=== PATIENT | male | born 1965 | race Caucasian/White ===

== ENCOUNTER → 2022-06-10 | Outpatient (CLI) | payer MEDICARE, SELFPAY ==
[2022-06-10 15:43] LABS: Vitamin B12 463 pg/mL (211-911)
[2022-06-10 16:02] LABS: Thyroid Stim Hormone (TSH) 1.15 uIU/mL (0.358-3.74)
[2022-06-15 12:08] LABS: Vitamin B1, Thiamine 140.1 nmol/L (66.5-200.0)
[2022-06-15 16:23] LABS: Topiramate 20.1 ug/mL (2.0-25.0)
== END | disposition home or self-care (01) ==
PROVIDERS: Referring Provider Psychiatry & Neurology Neurology; Visit Provider Psychiatry & Neurology Neurology
DX: G40.909 Epilepsy, unspecified, not intractable, without status epilepticus (principal)
CPT/HCPCS: 36415; 80201; 82140; 82607; 82746; 84425; 84443

== ENCOUNTER → 2022-07-01 | Outpatient (CLI) | payer MEDICARE, SELFPAY ==
--- NOTE | 2022-07-01 12:30 | MRI_ITS ---
STUDY: MRI BRAIN WITH AND WITHOUT CONTRAST REASON FOR EXAM: Male, 56 years old. epilepsy eval -- Pt has VNS unit implanted; SEIZURE ACTIVITY EVEN WITH IMPALNT TECHNIQUE: Standardized multiplanar fat and water weighted pulse sequences were obtained. IV 17cc clariscan was administered for the contrast portion of the examination. COMPARISON: None. FINDINGS: Normal size of the ventricles and extra-axial spaces for the patient''s age. Mild periventricular white matter ischemic changes without mass effect or restricted diffusion. There is a nonspecific nonenhancing lesion in the left frontal parietal region measuring approximately 2.18 x 1.14 cm which appears to be involving the body of the corpus callosum of uncertain etiology. Clinical correlation is recommended Normal bilateral basal ganglia. Normal thalami. There is no extra-axial fluid accumulation. Normal flow voids within the major intracranial circulation suggesting patency by spin echo criteria. Normal venous enhancement. There is no enhancing intra-axial or extra-axial abnormality. Normal sella turcica, pituitary gland, infundibular stalk, optic chiasm and hypothalamus. Normal tectal plate and pineal gland. Normal midbrain, jacob and medulla. Moderate to severe diffuse cerebellar atrophy.. Normal basal cisterns. Normal bilateral temporal bones. Normal bilateral internal auditory canals. No demonstrated orbital abnormality, within the constraints of a routine brain study. Diffuse mucosal thickening in the ethmoid air cells bilaterally.. Normal calvarium and skull base. Normal visualized soft tissue structures. Normal visualized upper cervical spine. MRI/Brain W/WO Contrast IMPRESSION: Mild periventricular white matter ischemic changes without evidence for acute infarct. Nonspecific left frontal parietal lesion appears to be loculated corpus callosum of uncertain etiology. Moderate to severe cerebellar atrophy of uncertain etiology although could be due to utilization of anticonvulsant medication. Electronically Signed: Brodie Parsons MD at 18:47 EST ,
--- NOTE | 2022-07-01 12:45 | RAD_ITS ---
STUDY: X-RAY CHEST REASON FOR EXAM: Male, 56 years old. PLACEMENT OF VNS, PRE MRI TECHNIQUE: PA and lateral views of the chest. COMPARISON: None. FINDINGS: The battery pack is seen overlying the left sixth and seventh ribs. Hyperinflation. The lungs are clear. There is no demonstrated pleural abnormality. Normal size heart. Normal mediastinum and naomie. Normal visualized pulmonary arteries. Normal visualized aortic arch and descending thoracic aorta. There are diffuse degenerative changes of the visualized thoracic spine. Normal visualized ribs, clavicles, and shoulders. There is no demonstrated abnormality of the visualized soft tissue structures of the upper abdomen. RAD/Chest PA and Lateral IMPRESSION: Hyperinflation. The lungs are clear. Electronically Signed: Devante Pena MD at 13:20 EST ,
== END | disposition home or self-care (01) ==
PROVIDERS: Referring Provider Psychiatry & Neurology Neurology; Visit Provider Psychiatry & Neurology Neurology
DX: G40.812 Lennox-Gastaut syndrome, not intractable, without status epilepticus (principal)
CPT/HCPCS: 70553; 71046; A9575

== ENCOUNTER → 2023-08-18 | Outpatient (CLI) | payer MEDICARE, SELFPAY ==
--- OUTSIDE RECORDS SUMMARY | 2023-08-18 13:35 | XMS RPT_ITS | CCD ---
Author Name Unknown Address [address] [place] [address] Organization [facility] Care Team Providers Care Founder And Chief Executive Officer Name Role Phone Brittney Bandail E Unavailable Inder Banda Primary Care Provider SUZI JOHNSONWOOD MANSI Admitting Unavailable ALEX, DAMIR RAY Referring Unavailable SOLO INDER EDSUSAN Primary Care Unavailable Solo LONG Inder E Primary Care Provider Inder Banda MD E Primary Care Provider PAULA OMER Attending Unavailable SOLO, INDER E Primary Care Unavailable CARLO ALONSO Attending Unavailable SOLO, INDER E Primary Care Unavailable Solo LONG Inder E Primary Care Provider Inder Banad MD E Primary Care Provider Inder Banda MD E Primary Care Provider Inder Banda MD Primary Care Provider [phone] INDER BANDA Primary Care Unavailable ALEX, DAMIR RAY Attending Unavailable ALEX, DAMIR RAY Admitting Unavailable ALEX, DAMIR RAY Attending Unavailable SOLO, INDER EDWARD Primary Care Unavailable SOLO, INDER E Primary Care Unavailable RILEY DIETZ Referring Unavailable RILEY DIETZ Attending Unavailable SOLO, INDER E Primary Care Unavailable RILEY DIETZ Attending Unavailable RILEY DIETZ Referring Unavailable SOLO, INDER E Primary Care Unavailable RILEY DIETZ Referring Unavailable RILEY DIETZ Attending Unavailable SOLO, INDER E Primary Care Unavailable RILEY DIETZ Referring Unavailable RILEY DIETZ Attending Unavailable SOLO, INDER E Primary Care Unavailable RILEY DIETZ Referring Unavailable DIETZ, RILEY L Attending Unavailable SOLO, INDER E Primary Care Unavailable DIETZ, RILEY L Referring Unavailable DIETZ, RILEY L Attending Unavailable SOLO, INDER E Primary Care Unavailable DIETZ, RILEY L Attending Unavailable DIETZ, RILEY L Referring Unavailable DIETZ, RILEY L Referring Unavailable SOLO, INDER E Primary Care Unavailable DIETZ, RILEY L Attending Unavailable DIETZ, RILEY L Referring Unavailable SOLO, INDER E Primary Care Unavailable DIETZ, RILEY L Attending Unavailable DIETZ, RILEY L Referring Unavailable SOLO, INDER E Primary Care Unavailable DIETZ, RILEY L Attending Unavailable DIETZ, RILEY L Referring Unavailable SOLO, INDER E Primary Care Unavailable DIETZ, RILEY L Attending Unavailable DIETZ, RILEY L Referring Unavailable SOLO, INDER E Primary Care Unavailable DIETZ, RILEY L Attending Unavailable DIETZ, RILEY L Referring Unavailable SOLO, INDER E Primary Care Unavailable DIETZ, RILEY L Attending Unavailable SOLO, INDER E Primary Care Unavailable DIETZ, RILEY L Attending Unavailable DIETZ, RILEY L Referring Unavailable SOLO, INDER E Primary Care Unavailable SOLO, INDER E Referring Unavailable SOLO, INDER E Attending Unavailable SOLO, INDER E Primary Care Unavailable DIETZ, RILEY L Referring Unavailable DIETZ, RILEY L Attending Unavailable SOLO, INDER E Primary Care Unavailable SOLO, INDER E Referring Unavailable SOLO, INDER E Attending Unavailable SOLO, INDER E Primary Care Unavailable SJ, RADHA Referring Unavailable SJ, RADHA Attending Unavailable SELF, SELF Referring Unavailable SOLO, INDER E Primary Care Unavailable SJ, RADHA Attending Unavailable SOLO, INDER E Primary Care Unavailable DIETZ, RILEY L Referring Unavailable DIETZ, RILEY L Attending Unavailable SOLO, INDER E Primary Care Unavailable DIETZ, RILEY L Referring Unavailable DIETZ, RILEY L Attending Unavailable NARESH HYLTON Attending Unavailable SOLO, INDER E Primary Care Unavailable SELF, SELF Referring Unavailable SJ, RADHA Attending Unavailable SOLO, INDER E Primary Care Unavailable SOLO, INDER E Primary Care Unavailable SELF, SELF Referring Unavailable SOLO, INDER E Attending Unavailable DOWNING, MARQUITA L Referring Unavailable DOWNING MARQUITA L Attending Unavailable SOLO, INDER E Primary Care Unavailable DOWNING, MARQUITA L Referring Unavailable DOWNING MARQUITA L Attending Unavailable SOLO, INDER E Primary Care Unavailable SOLO, INDER E Primary Care Unavailable SOLO, INDER E Primary Care Unavailable DIETZ, RILEY L Referring Unavailable DIETZ, RILEY L Attending Unavailable SOLO, INDER E Primary Care Unavailable DIETZ, RILEY L Referring Unavailable DIETZ, RILEY L Attending Unavailable SOLO, INDER E Primary Care Unavailable SOLO, INDER E Primary Care Unavailable RILEY DIETZ Referring Unavailable RILEY DIETZ Attending Unavailable SOLO, INDER E Referring Unavailable SOLO, INDER E Primary Care Unavailable SOLO, INDER E Attending Unavailable SOLO, INDER E Primary Care Unavailable SJ, RADHA Attending Unavailable SJ, RADHA Referring Unavailable SOLO, INDER E Referring Unavailable SOLO, INDER E Primary Care Unavailable SOLO, INDER E Attending Unavailable SOLO, INDER E Primary Care Unavailable SOLO, INDER E Primary Care Unavailable CATARINO CHRISTIANSON Attending Unavailable SOLO, INDER E Referring Unavailable SOLO, INDER E Primary Care Unavailable DIETZRILEY MALDONADO Attending Unavailable SOLO, INDER E Referring Unavailable SOLO, INDER E Primary Care Unavailable SOLO, INDER E Attending Unavailable SELF, SELF Referring Unavailable SOLO, INDER E Primary Care Unavailable SOLO, INDER E Attending Unavailable RILEY DIETZ Referring Unavailable SOLO, INDER E Primary Care Unavailable RILEY DIETZ Attending Unavailable RILEY DIETZ Referring Unavailable SOLO, INDER E Primary Care Unavailable RILEY DIETZ Attending Unavailable Medications Current Medications Medication Drug Class(es) Dates Sig (Normalized) Sig (Original) acetaminophen 325 mg oral tablet (8 sources) acetaminophen (T YLENOL) 325 MG tablet Take 1 (one) tablet (325 mg total) by mouth as needed for pain . 0 Active Completed/Discontinued Medications Medication Drug Class(es) Dates Sig (Normalized) Sig (Original) acetaminophen 325 mg / HYDROcodone bitartrate 5 mg oral tablet (5 sources) Opioid Agonist Start: 04-23-2021 End: 12-04-2021 take 1 tablet by mouth every four hours as needed hydroCODone-acetami nophen 5-325 MG tablet Indications: Kidney stone Take 1 tablet by mouth every 4 hours as needed for up to 2 days. 12 tablet 0 04/23/2021 12/04/2021 Discontinued (Therapy completed) Problems Active Problems Problem Classification Problem Date Documented Da te Episodic/Chronic Acute cerebrovascular disease (3 sources) Hemorrhage into subdural space of neuraxis; Translations: [Nontraumatic subdural hemorrhage, unspecified] Onset: 06-02-2022 Chronic Chronic kidney disease (2 sources) Chronic kidney disease stage 2; Translations: [Chronic kidney disease, stage 2 (mild)] Chronic Chronic kidney disease (2 sources) Chronic kidney disease; Translations: [Chronic kidney disease, stage 3a] Onset: 11-17-2022 Deficiency and other anemia (1 source) Iron deficiency anemia; Translations: [Other iron deficiency anemias] 08-12-2023 Episodic Developmental disorders (20 sources) 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] Onset: 10-09-2015 10-09-2015 Chronic Essential hypertension (3 sources) Benign hypertension; Translations: [Essential (primary) hypertension] Chronic Nutritional deficiencies (20 sources) Vitamin D deficiency; Translations: [Vitamin D deficiency, unspecified] Onset: 09-11-2018 09-11-2018 Chronic Nutritional deficiencies (1 source) Cobalamin deficiency; Translations: [Deficiency of other specified B group vitamins] 05-10-2023 Episodic Other and unspecified benign neoplasm (9 sources) History of polyp of colon; Translations: [Personal history of colonic polyps] Onset: 05-08-2020 05-08-2020 Episodic Other and unspecified benign neoplasm (1 source) Adenomatous polyp of colon ; Translations: [Adenomatous polyp of sigmoid colon] Episodic Other and unspecified benign neoplasm (2 sources) Personal history of colonic polyps; Translations: [Personal history of colonic polyps] Onset: 05-08-2020 Episodic Other connective tissue disease (2 sources) Pain in right hand; Translations: [Pain in right hand] Episodic Other connective tissue disease (1 source) Disorder of rotator cuff; Translations: [Unspecified disorder of synovium and tendon, right shoulder] 02-16-2023 Episodic Other connective tissue disease (4 sources) Adhesive capsulitis of right shoulder; Translations: [Adhesive capsulitis of right shoulder] Onset: 08-10-2023 06-02-2023 Episodic Other connective tissue disease (1 source) Adhesive capsulitis of right shoulder; Translations: [Adhesive capsulitis of right shoulder] Onset: 08-10-2023 Episodic Other hematologic conditions (3 sources) ESR raised; Translations: [Elevated erythrocyte sedimentation rate] Episodic Other non-traumatic joint disorders (2 sources) Shoulder pain; Translations: [Pain in right shoulder] 02-16-2023 Episodic Other non-traumatic joint disorders (3 sources) Disorder of shoulder; Translations: [Other specified joint disorders, right shoulder] 05-06-2023 Episodic Other non-traumatic joint disorders (3 sources) Pain in right shoulder; Translations: [Pain in joint, shoulder region] Onset: 06-02-2023 06-02-2023 Episodic Other non-traumatic joint disorders (1 source) Stiffness of right shoulder; Translations: [Stiffness of right shoulder, not elsewhere classified] 06-08-2023 Episodic Other non-traumatic joint disorders (4 sources) Other specified joint disorders, right shoulder; Translations: [Other specified joint disorders, right shoulder] Onset: 06-08-2023 Episodic Other non-traumatic joint disorders (2 sources) Stiffness of right shoulder, not elsewhere classified; Translations: [Stiffness of right shoulder, not elsewhere classified] Onset: 06-15-2023 Episodic Other nutritional; endocrine; and metabolic disorders (20 sources) Obese class I; Translations: [Obesity, unspecified] Onset: 06-09-2020 06-09-2020 Chronic Other nutritional; endocrine; and metabolic disorders (3 sources) Hypocalcemia; Translations: [Hypocalcemia] Onset: 05-18-2023 05-18-2023 Chronic Other nutritional; endocrine; and metabolic disorders (1 source) Hypocalcemia; Translations: [Hypocalcemia] Onset: 05-18-2023 Chronic Other upper respiratory disease (2 sources) Vasomotor rhinitis; Translations: [Vasomotor rhinitis] Onset: 06-15-2023 Chronic Unclassified (1 source) Patient encounter status; Translations: [Elective surgery] Past or Other Problems Problem Classification Problem Date Documented Da te Episodic/Chronic Calculus of urinary tract (20 sources) Kidney stone; Translations: [Calculus of kidney] Onset: 03-18-2021 Episodic E Codes: Fall (1 source) Fall; Translations: [Unspecified fall, initial encounter] Onset: 06-02-2022 06-02-2022 Episodic Epilepsy; convulsions (20 sources) Seizure; Translations: [Unspecified convulsions] Onset: 07-30-2014 07-30-2014 Episodic Open wounds of head; neck; and trunk (4 sources) Scalp laceration; Translations: [Laceration without foreign body of scalp, initial encounter] Onset: 10-16-2022 Episodic Other aftercare (20 sources) Surgical follow-up; Translations: [Encounter for removal of sutures] Onset: 03-14-2018 03-14-2018 Episodic Other aftercare (2 sources) Encounter for removal of sutures; Translations: [Encounter for removal of sutures] Onset: 10-23-2022 Episodic Other connective tissue disease (2 sources) Unspecified disorder of synovium and tendon, right shoulder; Translations: [Unspecified disorder of synovium and tendon, right shoulder] Onset: 03-17-2023 Episodic Other connective tissue disease (2 sources) Pain in right hand; Translations: [Pain in right hand] Onset: 02-16-2023 Episodic Other screening for suspected conditions (not mental disorders or infectious disease) (20 sources) Patient encounter status; Translations: [Encounter for screening for malignant neoplasm of colon] Onset: 04-16-2020 04-16-2020 Episodic Other skin disorders (20 sources) Skin lesion; Translations: [Disorder of the skin and subcutaneous tissue, unspecified] Onset: 03-14-2018 03-14-2018 Episodic Poisoning by other medications and drugs (20 sources) Adverse reaction to drug; Translations: [Adverse effect of unspecified drugs, medicaments and biological substances, initial encounter] Onset: 09-23-2011 09-23-2011 Episodic Sprains and strains (3 sources) Sprain of right thumb; Translations: [Unspecified sprain of right thumb, initial encounter] Onset: 11-15-2022 Episodic Unclassified (1 source) Laceration of left eyebrow, initial encounter Unclassified (20 sources) Onset: 06-09-2021 Resolved: 11-15-2022 06-09-2021 Results Test Name Value Interpretation Reference Range Facil ity Vital Signs Date Time Vital Sign Value Performing Clinician Facility 08-12-2023 13:36-0500 Body mass index (BMI) [Ratio] 26.05 kg/m2 Inder Banda MD Work Phone: [facility] 08-12-2023 13:36-0500 Body temperature 97.81 [degF] Inder Banda MD Work Phone: [employer] [facility] 08-12-2023 13:36-0500 Body weight 80.02 kg Inder Banda MD Work Phone: [employer] [facility] 08-12-2023 13:36-0500 Diastolic blood pressure 72 mm[Hg] Inder Banda MD Work Phone: [employer] [facility] 08-12-2023 13:36-0500 Heart rate 72 /min Inder Banda MD Work Phone: [employer] [facility] 08-12-2023 13:36-0500 Respiratory rate 14 /min [facility] 08-12-2023 13:36-0500 SaO2% (BldA) [Mass fraction] 97 % Inder Banda MD Work Phone: [employer] [facility] 08-12-2023 13:36-0500 Systolic blood pressure 119 mm[Hg] Inder Banda MD Work Phone: [employer] [facility] 08-10-2023 13:09-0500 Body height 175.3 cm Riley Dietz MD Work Phone: [facility] 08-10-2023 13:09-0500 Body mass index (BMI) [Ratio] 25.46 kg/m2 Riley Dietz MD Work Phone: [facility] [employer] 08-10-2023 13:09-0500 Body temperature 98.29 [degF] Riley Dietz MD Work Phone: [employer] [facility] 08-10-2023 13:09-0500 Body weight 78.2 kg Riley Dietz MD Work Phone: [employer] [facility] 07-06-2023 13:20-0500 Body height 172.7 cm Damir Johnson MD Work Phone: [facility] 07-06-2023 13:20-0500 Body mass index (BMI) [Ratio] 26.82 kg/m2 Damir Johnson MD Work Phone: [facility] 07-06-2023 13:20-0500 Body weight 80.02 kg Damir Johnson MD Work Phone: [facility] 07-06-2023 13:20-0500 Diastolic blood pressure 77 mm[Hg] Damir Johnson MD Work Phone: [facility] 07-06-2023 13:20-0500 Heart rate 83 /min Damir Johnson MD Work Phone: [facility] 07-06-2023 13:20-0500 SaO2% (BldA) [Mass fraction] 95 % Damir Johnson MD Work Phone: [facility] 07-06-2023 13:20-0500 Systolic blood pressure 120 mm[Hg] Damir Johnson MD Work Phone: [facility] 06-08-2023 13:32-0400 Body height 175.3 cm Riley Dietz MD Work Phone: [facility] 06-08-2023 13:32-0400 Body mass index (BMI) [Ratio] 25.46 kg/m2 Riley Dietz MD Work Phone: [facility] 06-08-2023 13:32-0400 Body temperature 97.39 [degF] Riley Dietz MD Work Phone: [facility] 06-08-2023 13:32-0400 Body weight 78.2 kg Riley Dietz MD Work Phone: [facility] 05-18-2023 14:48-0400 Body height 175.3 cm Riley Dietz MD Work Phone: [facility] 05-18-2023 14:48-0400 Body mass index (BMI) [Ratio] 25.46 kg/m2 Riley Dietz MD Work Phone: [facility] 05-18-2023 14:48-0400 Body temperature 97 [degF] Riley Dietz MD Work Phone: [facility] 05-18-2023 14:48-0400 Body weight 78.2 kg Riley Dietz MD Work Phone: [facility] 05-18-2023 14:04-0400 Body mass index (BMI) [Ratio] 25.44 kg/m2 Radha Gonzalez MD Work Phone: [facility] 05-18-2023 14:04-0400 Body weight 78.16 kg Radha Gonzalez MD Work Phone: [facility] [employer] [facility] 05-18-2023 14:04-0400 Diastolic blood pressure 78 mm[Hg] Radha Gonzalez MD Work Phone: [facility] 05-18-2023 14:04-0400 Heart rate 71 /min Radha Gonzalez MD Work Phone: [facility] 05-18-2023 14:04-0400 SaO2% (BldA) [Mass fraction] 98 % Radha Gonzalez MD Work Phone: [facility] [employer] [facility] 05-18-2023 14:04-0400 Systolic blood pressure 110 mm[Hg] Radha Gonzalez MD Work Phone: [facility] 05-10-2023 14:02-0400 Body mass index (BMI) [Ratio] 25.99 kg/m2 Inder Banda MD Work Phone: [facility] 05-10-2023 14:02-0400 Body temperature 97.9 [degF] Inder Banda MD Work Phone: [facility] [employer] [facility] 05-10-2023 14:02-0400 Body weight 79.83 kg Inder Banda MD Work Phone: [facility] [employer] [facility] 05-10-2023 14:02-0400 Diastolic blood pressure 62 mm[Hg] In[facility]anda [facility] 05-10-2023 14:02-0400 Heart rate 72 /min Inder Banda MD Work Phone: [facility] 05-10-2023 14:02-0400 Respiratory rate 14 /min Inder Banda MD Work Phone: [facility] 05-10-2023 14:02-0400 SaO2% (BldA) [Mass fraction] 98 % Inder Banda MD Work Phone: [facility] 05-10-2023 14:02-0400 Systolic blood pressure 130 mm[Hg] Inder Banda MD Work Phone: [facility] 02-16-2023 15:33-0400 Body height 175.3 cm Riley Dietz MD Work Phone: [facility] 02-16-2023 15:33-0400 Body mass index (BMI) [Ratio] 25.78 kg/m2 Riley Dietz MD Work Phone: [facility] 02-16-2023 15:33-0400 Body temperature 97 [degF] Riley Dietz MD Work Phone: [facility] 02-16-2023 15:33-0400 Body weight 79.2 kg Riley Dietz MD Work Phone: [facility] 01-24-2023 13:20-0400 Body height 175.3 cm Inder Banda MD Work Phone: [facility] 01-24-2023 13:20-0400 Body mass index (BMI) [Ratio] 25.78 kg/m2 Inder Banda MD Work Phone: [facility] 01-24-2023 13:20-0400 Body temperature 97.59 [degF] Inder Banda MD Work Phone: [facility] 01-24-2023 13:20-0400 Body weight 79.2 kg Inder Banda MD Work Phone: [facility] 01-24-2023 13:20-0400 Diastolic blood pressure 67 mm[Hg] Inder Banda MD Work Phone: [facility] 01-24-2023 13:20-0400 Heart rate 65 /min Inder Banda MD Work Phone: [facility] 01-24-2023 13:20-0400 Respiratory rate 14 /min Inder Banda MD Work Phone: [facility] 01-24-2023 13:20-0400 SaO2% (BldA) [Mass fraction] 96 % Inder Banda MD Work Phone: [facility] 01-24-2023 13:20-0400 Systolic blood pressure 159 mm[Hg] Inder Banda MD Work Phone: [facility] 12-08-2022 13:42-0400 Body height 175.3 cm Riley Dietz MD Work Phone: [facility] 12-08-2022 13:42-0400 Body mass index (BMI) [Ratio] 26.14 kg/m2 Riley Dietz MD Work Phone: [facility] 12-08-2022 13:42-0400 Body temperature 97.3 [degF] Riley Dietz MD Work Phone: [facility] 12-08-2022 13:42-0400 Body weight 80.29 kg Riley Dietz MD Work Phone: [facility] 11-17-2022 13:36-0400 Body mass index (BMI) [Ratio] 26.29 kg/m2 Radha Gonzalez MD Work Phone: [facility] 11-17-2022 13:36-0400 Body weight 80.74 kg Radha Gonzalez MD Work Phone: [facility] 11-17-2022 13:36-0400 Diastolic blood pressure 62 mm[Hg] Radha Gonzalez MD Work Phone: [facility] 11-17-2022 13:36-0400 Heart rate 64 /min Radha Gonzalez MD Work Phone: [facility] 11-17-2022 13:36-0400 SaO2% (BldA) [Mass fraction] 98 % Radha Gonzalez MD Work Phone: [facility] [employer] [facility] 11-17-2022 13:36-0400 Systolic blood pressure 115 mm[Hg] Radha Gonzalez MD Work Phone: [employer] [facility] 11-15-2022 14:30-0400 Diastolic blood pressure 70 mm[Hg] Inder Banda MD Work Phone: [employer] [facility] 11-15-2022 14:30-0400 Heart rate 69 /min Inder Banda MD Work Phone: [employer] [facility] 11-15-2022 14:30-0400 Respiratory rate 16 /min Inder Banda MD Work Phone: [employer] [facility] 11-15-2022 14:30-0400 SaO2% (BldA) [Mass fraction] 98 % Inder Banda MD Work Phone: [employer] [facility] 11-15-2022 14:30-0400 Systolic blood pressure 114 mm[Hg] Inder Banda MD Work Phone: [employer] [facility] 11-15-2022 13:14-0400 Body height 175.3 cm Inder Banda MD Work Phone: [employer] [facility] 11-15-2022 13:14-0400 Body mass index (BMI) [Ratio] 25.95 kg/m2 Inder Banda MD Work Phone: [employer] [facility] 11-15-2022 13:14-0400 Body weight 79.7 kg Inder Banda MD Work Phone: [employer] [facility] 11-15-2022 13:13-0400 Body temperature 97.59 [degF] Inder Banda MD Work Phone: [employer] [facility] 10-23-2022 11:59-0500 Body temperature 98.2 [degF] Naresh Hylton MD Work Phone: [employer] [facility] 10-23-2022 11:59-0500 Diastolic blood pressure 70 mm[Hg] Naresh Hylton MD Work Phone: [employer] [facility] 10-23-2022 11:59-0500 Heart rate 81 /min Naresh Hylton MD Work Phone: [facility] 10-23-2022 11:59-0500 Respiratory rate 16 /min Naresh Hylton MD Work Phone: [facility] 10-23-2022 11:59-0500 SaO2% (BldA) [Mass fraction] 96 % Naresh Hylton MD Work Phone: [facility] 10-23-2022 11:59-0500 Systolic blood pressure 126 mm[Hg] Naresh Hylton MD Work Phone: [facility] 10-15-2022 22:53-0500 Body height 175.3 cm Catarino Christianson MD Work Phone: [facility] 10-15-2022 22:52-0500 Body temperature 98.4 [degF] Catarino Christianson MD Work Phone: [facility] 10-15-2022 22:52-0500 Diastolic blood pressure 76 mm[Hg] Catarino Christianson MD Work Phone: [facility] 10-15-2022 22:52-0500 Heart rate 78 /min Catarino Christianson MD [facility] 10-15-2022 22:52-0500 Respiratory rate 16 /min Catarino Christianson MD Work Phone: [facility] 10-15-2022 22:52-0500 SaO2% (BldA) [Mass fraction] 99 % Catarino Christianson MD Work Phone: [facility] 10-15-2022 22:52-0500 Systolic blood pressure 145 mm[Hg] Catarino Christianson MD Work Phone: [facility] 09-27-2022 13:57-0500 Body height 175.3 cm Inder Banda MD Work Phone: [facility] 09-27-2022 13:57-0500 Body mass index (BMI) [Ratio] 27.08 kg/m2 Inder Banda MD Work Phone: [facility] 09-27-2022 13:57-0500 Body temperature 97.7 [degF] Inder Banda MD Work Phone: [employer] [facility] 09-27-2022 13:57-0500 Body weight 83.19 kg Inder Banda MD Work Phone: [employer] [facility] [facility] 09-27-2022 13:57-0500 Diastolic blood pressure 81 mm[Hg] Inder Banda MD Work Phone: [employer] [facility] 09-27-2022 13:57-0500 Heart rate 71 /min Inder Banda MD Work Phone: [employer] [facility] 09-27-2022 13:57-0500 Respiratory rate 14 /min Inder Banda MD Work Phone: [employer] [facility] 09-27-2022 13:57-0500 SaO2% (BldA) [Mass fraction] 97 % Inder Banda MD Work Phone: [employer] [facility] 09-27-2022 13:57-0500 Systolic blood pressure 118 mm[Hg] Inder Banda MD Work Phone: [employer] [facility] 06-28-2022 15:16-0500 Body height 175.3 cm Inder Banda MD Work Phone: [employer] [facility] 06-28-2022 15:16-0500 Body mass index (BMI) [Ratio] 26.66 kg/m2 Inder Banda MD Work Phone: [employer] [facility] 06-28-2022 15:16-0500 Body temperature 98.29 [degF] Inder Banda MD Work Phone: [employer] 06-28-2022 15:16-0500 Body weight 81.87 kg Inder Banda MD Work Phone: [employer] [facility] 06-28-2022 15:16-0500 Diastolic blood pressure 71 mm[Hg] Inder Banda MD Work Phone: [employer] [facility] 06-28-2022 15:16-0500 Heart rate 74 /min Inder Banda MD Work Phone: [employer] 06-28-2022 15:16-0500 Respiratory rate 14 /min Inder Banda MD Work Phone: [employer] [facility] 06-28-2022 15:16-0500 SaO2% (BldA) [Mass fraction] 97 % Inder Banda MD Work Phone: [employer] 06-28-2022 15:16-0500 Systolic blood pressure 132 mm[Hg] Inder Banda MD Work Phone: [employer] 06-02-2022 14:11-0400 Diastolic blood pressure 64 mm[Hg] Inder Banda MD Work Phone: [employer] 06-02-2022 14:11-0400 Heart rate 55 /min Inder Banda MD Work Phone: [employer] 06-02-2022 14:11-0400 Respiratory rate 16 /min Inder Banda MD Work Phone: [employer] 06-02-2022 14:11-0400 SaO2% (BldA) [Mass fraction] 99 % Inder Banda MD Work Phone: [employer] 06-02-2022 14:11-0400 Systolic blood pressure 133 mm[Hg] Inder Banda MD Work Phone: [employer] 06-02-2022 11:12-0400 Body height 175.3 cm Inder Banda MD Work Phone: [employer] 06-02-2022 11:12-0400 Body mass index (BMI) [Ratio] 27.32 kg/m2 Inder Banda MD Work Phone: [employer] 06-02-2022 11:12-0400 Body weight 83.92 kg Inder Banda MD Work Phone: [employer] 06-02-2022 11:09-0400 Body temperature 97.5 [degF] Inder Banda MD Work Phone: [employer] [facility] 05-19-2022 14:45-0400 Body mass index (BMI) [Ratio] 28.07 kg/m2 Radha Gonzalez MD Work Phone: [facility] [employer] [facility] 05-19-2022 14:45-0400 Body weight 83.73 kg Radha Gonzalez [facility] 05-19-2022 14:45-0400 Diastolic blood pressure 70 mm[Hg] Radha Gonzalez MD Work Phone: [employer] [facility] 05-19-2022 14:45-0400 Heart rate 70 /min Radha Gonzalez MD Work Phone: [facility] [employer] [facility] 05-19-2022 14:45-0400 SaO2% (BldA) [Mass fraction] 97 % Radha Gonzalez MD Work Phone: [facility] [employer] [facility] 05-19-2022 14:45-0400 Systolic blood pressure 132 mm[Hg] Radha Gonzalez MD Work Phone: [facility] [employer] [facility] 03-15-2022 10:55-0400 Body height 172.7 cm Inder Banda MD Work Phone: [facility] 03-15-2022 10:55-0400 Body mass index (BMI) [Ratio] 27.37 kg/m2 Inder Banda MD Work Phone: [facility] [employer] [facility] 03-15-2022 10:55-0400 Body weight 81.65 kg Inder Banda MD Work Phone: [facility] [employer] [facility] 03-15-2022 10:53-0400 Body temperature 98.29 [degF] In[facility] 03-15-2022 10:53-0400 Diastolic blood pressure 67 mm[Hg] Inder Banda MD Work Phone: [facility] 03-15-2022 10:53-0400 Heart rate 69 /min Inder Banda MD Work Phone: [facility] 03-15-2022 10:53-0400 Respiratory rate 18 /min Inder Banda MD Work Phone: [facility] [employer] [facility] 03-15-2022 10:53-0400 SaO2% (BldA) [Mass fraction] 95 % Inder Banda MD Work Phone: [employer] [facility] 03-15-2022 10:53-0400 Systolic blood pressure 127 mm[Hg] Inder Banda MD Work Phone: [employer] [facility] 03-09-2022 13:44-0400 Body height 172.7 cm Inder Banda MD Work Phone: [employer] [facility] 03-09-2022 13:44-0400 Body mass index (BMI) [Ratio] 27.52 kg/m2 Inder Banda MD Work Phone: [employer] [facility] 03-09-2022 13:44-0400 Body temperature 98.01 [degF] Inder Banda MD Work Phone: [employer] [facility] 03-09-2022 13:44-0400 Body weight 82.1 kg Inder Banda MD Work Phone: [employer] [facility] 03-09-2022 13:44-0400 Diastolic blood pressure 68 mm[Hg] Inder Banda MD Work Phone: [employer] [facility] 03-09-2022 13:44-0400 Heart rate 86 /min Inder Banda MD Work Phone: [employer] [facility] 03-09-2022 13:44-0400 Respiratory rate 14 /min Inder Banda MD Work Phone: [employer] [facility] 03-09-2022 13:44-0400 SaO2% (BldA) [Mass fraction] 96 % Inder Banda MD Work Phone: [employer] [facility] 03-09-2022 13:44-0400 Systolic blood pressure 113 mm[Hg] Inder Banda MD Work Phone: [employer] [facility] 01-06-2022 13:46-0400 Body height 172.7 cm Marquita Downing CNP Work Phone: [employer] [facility] 01-06-2022 13:46-0400 Body mass index (BMI) [Ratio] 27.37 kg/m2 Marquita Downing [employer] SALES REPRESENTATIVE Work Phone: [employer] [facility] 01-06-2022 13:46-0400 Body weight 81.65 kg Marquita Downing [employer] SALES REPRESENTATIVE [facility] 01-06-2022 13:46-0400 Respiratory rate 18 /min Marquita Downing CNP [facility] 01-06-2022 13:46-0400 SaO2% (BldA) [Mass fraction] 98 % Marquita Downing [employer] SALES REPRESENTATIVE Work Phone: [employer] [facility] 12-30-2021 09:31-0400 Body mass index (BMI) [Ratio] 26.67 kg/m2 Paula Leonardda RN SURGERY ICU Work Phone: [employer] 12-30-2021 09:31-0400 Body weight 81.92 kg Paula Bogda RN SURGERY ICU Work Phone: [employer] 12-30-2021 09:31-0400 Diastolic blood pressure 73 mm[Hg] Paula Bogda RN SURGERY ICU Work Phone: [employer] 12-30-2021 09:31-0400 Heart rate 62 /min Paula Bogda RN SURGERY ICU Work Phone: [employer] 12-30-2021 09:31-0400 Respiratory rate 22 /min Paula Bogda RN SURGERY ICU Work Phone: [employer] 12-30-2021 09:31-0400 Systolic blood pressure 120 mm[Hg] Paula Bogda RN SURGERY ICU Work Phone: [employer] 12-04-2021 13:18-0400 Body mass index (BMI) [Ratio] 27.37 kg/m2 Inder Banda MD Work Phone: [employer] [facility] 12-04-2021 13:18-0400 Body temperature 98.49 [degF] Inder Banda MD Work Phone: [employer] 12-04-2021 13:18-0400 Body weight 81.65 kg Inder Banda MD Work Phone: [employer] 12-04-2021 13:18-0400 Diastolic blood pressure 72 mm[Hg] Inder Banda MD Work Phone: [employer] 12-04-2021 13:18-0400 Heart rate 75 /min Inder Banda MD Work Phone: [employer] 12-04-2021 13:18-0400 SaO2% (BldA) [Mass fraction] 96 % Inder Banda MD Work Phone: [employer] 12-04-2021 13:18-0400 Systolic blood pressure 123 mm[Hg] Inder Banda MD Work Phone: [employer] [facility] 11-19-2021 13:14-0400 Body mass index (BMI) [Ratio] 28.05 kg/m2 Radha Gonzalez MD Work Phone: [employer] 11-19-2021 13:14-0400 Body weight 83.69 kg Radha Gonzalez MD Work Phone: [employer] [facility] 11-19-2021 13:14-0400 Diastolic blood pressure 70 mm[Hg] Radha Gonzalez MD Work Phone: [employer] 11-19-2021 13:14-0400 Heart rate 68 /min Radha Gonzalez MD Work Phone: [employer] 11-19-2021 13:14-0400 SaO2% (BldA) [Mass fraction] 98 % Radah Gonzalez MD Work Phone: [employer] 11-19-2021 13:14-0400 Systolic blood pressure 117 mm[Hg] Radha Gonzalez MD Work Phone: [employer] [facility] 04-09-2021 15:59-0400 Diastolic blood pressure 82 mm[Hg] Joseph Singh MD Work Phone: [facility] 04-09-2021 15:59-0400 Heart rate 60 /min Joseph Singh MD Work Phone: [facility] 04-09-2021 15:59-0400 Respiratory rate 14 /min Joseph Singh MD Work Phone: [facility] 04-09-2021 15:59-0400 SaO2% (BldA) [Mass fraction] 99 % Joseph Singh MD Work Phone: [facility] 04-09-2021 15:59-0400 Systolic blood pressure 144 mm[Hg] Joseph Singh MD Work Phone: [facility] 04-09-2021 15:14-0400 Body temperature 96.8 [degF] Joseph Singh MD Work Phone: [facility] 04-09-2021 12:45-0400 Body height 172.7 cm Joseph Singh MD Work Phone: [facility] 06-03-2020 13:40-0400 BP Diastolic 90 mm[Hg] [facility] 06-03-2020 13:40-0400 BP Systolic 133 mm[Hg] [facility] 06-03-2020 13:40-0400 Pulse (Heart Rate) 79 /min [facility] 06-03-2020 13:40-0400 Pulse Oximetry 97 % [facility] 06-03-2020 13:40-0400 Respiratory Rate 13 /min [facility] 06-03-2020 12:05-0400 BMI (Body Mass Index) 28.22 kg/m2 [facility] 06-03-2020 12:05-0400 Body weight 81.[address] [facility] 06-03-2020 12:05-[address] [facility] 06-03-2020 11:52-0400 Body Temperature 97.5 [degF] [facility] 05-08-2020 14:34-0400 BMI (Body Mass Index) 29.54 kg/m2 [facility] 05-08-2020 14:34-0400 Body weight 85.[address] [facility] 05-08-2020 14:34-0400 BP Diastolic 76 mm[Hg] [facility] 05-08-2020 14:34-0400 BP Systolic 117 mm[Hg] [facility] 05-08-2020 14:34-[address] [facility] 05-08-2020 14:34-0400 Pulse (Heart Rate) 88 /min [facility] 05-08-2020 14:34-0400 Pulse Oximetry 95 % [facility] 07-17-2018 13:49-0500 Body Temperature 98.4 [degF] [facility] Work Phone: 07-17-2018 13:49-0500 Pulse (Heart Rate) 81 /min [facility] Work Phone: 07-17-2018 13:49-0500 Pulse Oximetry 96 % [facility] Work Phone: 07-17-2018 13:49-0500 Respiratory Rate 16 /min [facility] Work Phone: 07-17-2018 12:59-0500 BMI (Body Mass Index) 28.4 kg/m2 [facility] Work Phone: 07-17-2018 12:59-0500 BP Diastolic 64 mm[Hg] [facility] Work Phone: 07-17-2018 12:59-0500 BP Systolic 115 mm[Hg] [facility] Work Phone: 07-17-2018 12:59-0500 Height 172.7 cm [facility] Work Phone: 07-17-2018 12:59-0500 Pulse (Heart Rate) 82 /min [facility] Work Phone: 07-17-2018 12:59-0500 Pulse Oximetry 98 % Marquita [facility] Work Phone: 07-17-2018 12:59-0500 Weight 84.73 kg Marquita [facility] Work Phone: 07-12-2018 12:50-0500 Height 172.[address] [facility] Work Phone: 07-12-2018 12:50-0500 Pulse Oximetry 100 % [facility] Work Phone: 07-12-2018 12:47-0500 Body Temperature 97.81 [degF] [facility] Work Phone: 07-12-2018 12:47-0500 BP Diastolic 77 mm[Hg] [facility] Work Phone: 07-12-2018 12:47-0500 BP Systolic 155 mm[Hg] [facility] Work Phone: 07-12-2018 12:47-0500 Pulse (Heart Rate) 87 /min [facility] Work Phone: 07-12-2018 12:47-0500 Respiratory Rate 18 /min [facility] Work Phone: Encounters Encounter Date Encounter Type Care Provider Facility Start: 08-12-2023 ambulatory INDER BANDA [facility]3] Start: 08-12-2023 End: 08-12-2023 Office outpatient visit 15 minutes Inder Banda MD Work Phone: [facility] Internal Medicine Procedures Date Procedure Procedure Detail Performing Clinician Start: 08-09-2023 Lipid 1996 panel - S bebe or Plasma Riley Dietz MD Work Phone: Start: 06-02-2023 Radex shoulder arthr ography rs&i Riley Dietz MD Work Phone: Start: 05-05-2023 Lipid 1996 panel - S bebe or Plasma Inder Banda MD Work Phone: Start: 02-16-2023 Arthrocentesis aspir &/inj major jt/bursa w/o us Khristie Barreto Start: 01-19-2023 Lipid 1996 panel - S bebe or Plasma nIder Banda MD Work Phone: Start: 12-31-2022 Radiologic exam abdo men 1 view Marquita Ania Magno [employer] REPRESENTATIVE Work Phone: Start: 11-15-2022 Radex hand minimum 3 views Liset Kincaid [employer] SAL[employer] REPRESENTATIVE Work Phone: Start: 10-15-2022 PROCEDURE - LACERATI ON REPAIR Liset Zendejas Sanjiv [employer] SALES REPRESENTATIVE Work Phone: Start: 06-02-2022 Ct head/brain w/o co ntrast material Liset Zendejas Sanjiv [employer] SALES REPRESENTATIVE Work Phone: Start: 06-02-2022 Complete blood count with white cell differential, automated Liset Aashish Sanjiv [employer] SALES REPRESENTATIVE Work Phone: Start: 06-02-2022 Comprehensive metabo lic panel Liset Aashish Sanjiv [employer] REPRESENTATIVE Work Phone: Start: 03-15-2022 Us abdominal real ti me w/image limited Inder Banda MD Work Phone: Start: 01-06-2022 Urnls dip stick/tabl et rgnt auto w/o microscopy Marquita Downing [employer] SAL[employer] REPRESENTATIVE Work Phone: Start: 04-15-2021 Urnls dip stick/tabl et rgnt auto w/o microscopy Joseph Singh MD Work Phone: Start: 04-14-2021 Ct abdomen & pelvis w/o contrast material Aman Rivera [employer] SALES REPRESENTATIVE Work Phone: Start: 10-29-2020 Adult depression scr eening assessment Vandana Ryan MD Work Phone: Start: 06-03-2020 End: 06-03-2020 Colonoscopy Damir Johnson Work Phone: Plan of Treatment Date Care Activity Detail Author Start: 06-09-2031 DTaP,Tdap,and Td Vaccines (2 - Td or Tdap) DTaP,Tdap,and Td Vaccines (2 - Td or Tdap) [facility] Start: 06-09-2031 Tetanus vaccination [facility] Start: 06-03-2030 Screening for malignant neoplasm of colon [facility] Start: 08-09-2028 Lipid panel LIPID SCREENING [facility] Start: 05-05-2028 Lipid panel LIPID SCREENING [facility] Start: 01-20-2028 Lipid panel LIPID SCREENING [facility] Start: 08-09-2024 Potassium [Moles/volume] in Serum or Plasma POTASSIUM [facility] Start: 05-16-2024 Potassium [Moles/volume] in Serum or Plasma POTASSIUM [facility] Start: 05-05-2024 Potassium [Moles/volume] in Serum or Plasma POTASSIUM [facility] Start: 01-20-2024 Potassium [Moles/volume] in Serum or Plasma POTASSIUM [facility] Start: 11-25-2023 End: 11-25-2023 Patient encounter procedure 11/25/2023 1:15 PM EDT Office Visit [facility] Internal Medicine [address] [place] [address] Inder Banda MD [address] [place] [id number] [facility] Internal Medicine Start: 11-16-2023 Potassium [Moles/volume] in Serum or Plasma POTASSIUM [facility] Start: 11-16-2023 End: 11-16-2023 Patient encounter procedure 11/16/2023 1:30 PM EDT Office Visit [facility] Nephrology 2 [address] [place] [address] Radha Gonzalez MD [address] [place] [address] [facility] Nephrology 2 Start: 11-11-2023 End: 08-12-2024 C-reactive protein C REACTIVE PROTEIN Lab Routine Elevated erythrocyte sedimentation rate Expected: 11/11/2023, Expires: 08/12/2024 [facility] Immunizations Immunization Date Immunization Notes Care Provider Fa cili 05-19-2022 influenza virus vaccine, unspecified formulation Inder Banda MD Work Phone: [facility] 07-29-2021 COVID-19 vaccine, mR MARGIE, Tejinder, booster 0.25 ML Radha Gonzalez MD Work Phone: [facility] 07-02-2021 influenza virus vaccine, unspecified formulation Inder Banda MD Work Phone: [facility] 06-09-2021 tetanus toxoid, redu mesfin diphtheria toxoid, and acellular pertussis vaccine, adsorbed Radha Gonzalez MD Work Phone: [facility] 12-08-2020 SARS-COV-2 (COVID-19 ), Mrna, Lnp-s, Pf, 100 Mcg/ 0.5 Ml Dose TEJINDER Singh MD Work Phone: [facility] 11-10-2020 SARS-COV-2 (COVID-19 ), Mrna, Lnp-s, Pf, 100 Mcg/ 0.5 Ml Dose TEJINDER Singh MD Work Phone: [facility] 05-16-2020 influenza virus vaccine, unspecified formulation Vandana Ryan MD Work Phone: [facility] 05-21-2019 influenza, high dose seasonal, preservative-free Joseph Singh MD Work Phone: [facility] 05-21-2019 influenza virus vaccine, unspecified formulation Joseph Singh MD Work Phone: [facility] 06-07-2018 AFLURIA QUADRIVALENT 0.5 ML Suspension Prefilled Syringe; Translations: [Afluria Quadrivalent 0.5 Ml Im Katherine] [facility] Work Phone: flu vacc [id number] 6 mos up,PF, 60 mcg (15 mcg x 4)/0.5 mL syringe Vandana Ryan MD Work Phone: [facility] flu vacc [id number] 6 mos up,PF, 60 mcg (15 mcg x 4)/0.5 mL syringe Paula Omer NP Work Phone: [facility] Payers Date Payer Category Payer Medicare [id number]. [id number] 2015 Medicare [id number] 2014 Medicare [id number] 1965 Unknown [id number] 2.16.8 40.1.202679.3.579.2.900 1964 Unknown [id number] 2.16.8 40.1.687725.3.579.2.1143 1964 Unknown [id number] 2.16.8 40.1.165545.3.579.2.1143 1964 Unknown [id number] 2.16. 840.1.753538.3.579.2.903 1964 Unknown [id number] 2.16. 840.1.926889.3.579.2.903 1964 Unknown [id number] 2.16.8 40.1.858405.3.579.2.983 1964 Unknown [id number] 2.16.8 40.1.520573.3.579.2.983 1964 Unknown [id number] 2.16.8 40.1.185698.3.579.2.983 1964 Unknown [id number] 2.16.8 40.1.758969.3.579.2.983 1964 Unknown [id number] 2.16.8 40.1.581509.3.579.2. 1964 Unknown [id number] 2.16.8 40.1.564855.3.579.2. 1964 Unknown [id number] 2.16.8 40.1.207543.3.579.2. 1964 Unknown [id number] 2.16.8 40.1.708640.3.579.2. 1964 Unknown [id number] 2.16.8 40.1.955735.3.579.2. 1964 Unknown [id number] 2.16.8 40.1.947754.3.579.2. 1964 Unknown [id number] 2.16.8 40.1.138052.3.579.2. 1964 Unknown [id number] 2.16.8 40.1.616439.3.579.2. 1964 Unknown [id number] 2.16.8 40.1.924910.3.579.2. 1964 Unknown [id number] 2.16.8 40.1.459975.3.579.2. 1964 Unknown [id number] 2.16.8 40.1.156233.3.579.2. 1964 Unknown [id number] 2.16.8 40.1.541455.3.579.2. 1964 Unknown [id number] 2.16.8 40.1.358088.3.579.2. 1964 Unknown [id number] 2.16.8 40.1.914665.3.579.2. 1964 Unknown [id number] 2.16.8 40.1.805568.3.579.2. 1964 Unknown [id number] 2.16.8 40.1.883536.3.579.2.983 1964 Unknown [id number] 2.16.8 40.1.983001.3.579.2. 1964 Unknown [id number] 2.16.8 40.1.981840.3.579.2. 1964 Unknown [id number] 2.16.8 40.1.926275.3.579.2. 1964 Unknown [id number] 2.16.8 40.1.896865.3.579.2. 1964 Unknown [id number] 2.16.8 40.1.150648.3.579.2. 1964 Unknown [id number] 2.16.8 40.1.932621.3.579.2. 1964 Unknown [id number] 2.16.8 40.1.996999.3.579.2. 1964 Unknown [id number] 2.16.8 40.1.443157.3.579.2. 1964 Unknown [id number] 2.16.8 40.1.504002.3.579.2. 1964 Unknown [id number] 2.16.8 40.1.957662.3.579.2. 1964 Unknown [id number] 2.16.8 40.1.137368.3.579.2. 1964 Unknown [id number] 2.16.8 40.1.650404.3.579.2. 1964 Unknown [id number] 2.16.8 40.1.594449.3.579.2. 1964 Unknown [id number] 2.16.8 40.1.899259.3.579.2. 1964 Unknown [id number] 2.16.8 40.1.702283.3.579.2. 1964 Unknown [id number] 2.16.8 40.1.178648.3.579.2.983 1964 Unknown [id number] 2.16.8 40.1.524942.3.579.2.983 1964 Unknown [id number] 2.16.8 40.1.509818.3.579.2.983 1964 Unknown [id number] 2.16.8 40.1.820542.3.579.2.983 1964 Unknown [id number] 2.16.8 40.1.792724.3.579.2.983 1964 Unknown [id number] 2.16.8 40.1.912043.3.579.2.983 1964 Unknown [id number] 2.16.8 40.1.572633.3.579.2.983 Social History Date Type Detail Facility Start: 07-12-2018 End: 06-28-2022 Tobacco smoking status NVIS Current every day smoker [facility] [employer] [facility] History of tobacco use Cigarette Smoker [facility] Work Phone: Start: 07-12-2018 End: 08-12-2023 Cigarettes smoked current (pack per day) - Reported [facility] Work Phone: Start: 1965 Sex Assigned At Not on file [facility] Work Phone: Start: 05-08-2020 End: 06-02-2022 Tobacco use and exposure Former user [facility] Start: 05-08-2020 End: 08-12-2023 Alcohol intake Current non-drinker of alcohol (finding) [facility] Start: 05-08-2020 End: 06-02-2022 Tobacco Comment 4-5 cigarettes daily [facility] Start: 2021 End: 11-15-2022 Exposure to SARS-CoV-2 (event) Not sure [facility] Tobacco smoking stat [facility] Tobacco smoking consumption unknown [employer] Start: 02-14-2018 End: 06-28-2022 Tobacco use and exposure Smokeless tobacco non-user [facility] Start: 01-02-2022 Alcohol intake Ex-drinker (finding) [facility] Start: 12-30-2021 History SDOH Alcohol Frequency 1 [facility] Start: 02-16-2023 End: 08-12-2023 Tobacco use panel [facility] Start: 05-08-2020 Gender identity Identifies as male gender (finding) [facility] Start: 05-08-2020 Sexual orientation Heterosexual (finding) [facility] Medical Equipment Procedure Code Equipment Code Equipment Origin al Text Equipment Identifier Dates [employer] Sr - [id number] Start: 03-03-2018 Lead Single Pin 3.0mm - [id number] Start: 03-03-2018 [employer]ator [employer] - [id number] Start: 03-03-2018 Lead Single Pin 3.0mm - [id number] Start: 03-03-2018 [employer] - [id number] Start: 03-03-2018 Lead Single Pin 3.0mm - [id number] Start: 03-03-2018 Stent, Variable Length Ureteral - [id number] Start: 04-09-2021 Lead Single Pin 3.0mm - [id number] Start: 03-03-2018 Stent, Variable Length Ureteral - [id number] Start: 04-09-2021 [employer] - [id number] Start: 03-03-2018 Goals Date Patient Goal Desired Activity /State Personal health goal Clinical Notes 04-09-2021 to 08-12-2023 Rodney Castillo - 08/12/2023 1:15 PM Mike Banda MD - 08/12/2023 1:15 PM Joel Begum LPN - 08/10/2023 1:15 PM Flaquita Feng PA-C - 08/10/2023 1:15 PM EST Note Date & Type Note Facility 08-12-2023 History of Present illness Narrative Nurse Note: Review of Systems Constitutional: Negative. HENT: Negative. Eyes: Negative. Respiratory: Negative. Cardiovascular: Negative. Gastrointestinal: Negative. Endocrine: Negative. Genitourinary: Negative. Musculoskeletal: Negative. Skin: Negative. Allergic/Immunologic: Negative. Neurological: Negative. Hematological: Negative. Psychiatric/Behavioral: Negative. Nursing Assessment: Patient presents today for evaluation of vitamin B12 level, complete hemogram as well as sedimentation rate. Patient continues to see Dr Dietz for right shoulder pain and he is doing PT Physical Exam Chief Complaint: Chief Complaint Patient presents with Follow-up evaluation of vitamin B12 level, complete hemogram as well as sedimentation rate. History of Present Illness Danette Moore is a 57 y.o. male who presents today with the following concerns: Follow-up (evaluation of vitamin B12 level, complete hemogram as well as sedimentation rate) Patient with a history of refractory seizure disorder being managed by neurology services as well as history of drop attacks, history of elevated sedimentation rate essentially due to underlying osteoarthritic changes with right shoulder pain being managed by orthopedic services. Patient has been followed by physical therapy. Patient is been reviewed. Sedimentation rate is elevated. He has been afebrile. Patient did not have his colonoscopy is planned at due to febrile illness. He has been recommended to have a rhinoscopy rescheduled the next 2 weeks and undergo colonoscopy for evaluation of anemia, and the patient has agreed. Patient is up-to-date with his vaccinations. Heart:Patient denies any exertional chest pain, dyspnea, palpitations, syncope, orthopnea, edema or paroxysmal nocturnal dyspnea. Lung:The patient denies cough, chest pain, dyspnea, wheezing or hemoptysis. Abdomen: The patient denies abdominal or flank pain, anorexia, nausea or vomiting, dysphagia, change in bowel habits or black or bloody stools or weight loss. Extremities:Patient denies low back pain or painful or reduced range of motion of the back. Problems discussed today also include: problems updated.HPI comments may also be noted in 'Overview' section on the Problem List and appear at the end of this note under problem summary. 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 Reviewed today. Medications on arrival 08/12/2023 Outpatient Medications Prior to Visit Medication Sig Dispense Refill CALCIUM PO take 1 Tab by mouth 0900 every other day. Cholecalciferol (Vitamin D3) 50 MCG (1999 UT) tablet Take 1 tablet by mouth every Tuesday, Tuesday and Tuesday. (Patient taking differently: Take 1 tablet by mouth every Tuesday, Tuesday and Tuesday. 100 mg M W ) cloBAZam 10 MG tablet 2.5 tablets 2 times daily. hydroCHLOROthiazide 12.5 MG capsule Take 1 capsule by mouth daily. 90 capsule 3 Lactulose 10 GM/15ML Solution oral solution lamoTRIgine 100 MG tablet Take 0.5 tablets by mouth 2 times daily. lamoTRIgine 200 MG tablet Take 0.5 tablets by mouth 2 times daily. 1 bid Please use the same manufacture. 180 tablet 1 LORazepam 1 MG Tab take 1 tablet by mouth every 6 hours as needed for Seizures (one pill if drop attack two days in a row).. 10 tablet 0 Losartan 50 MG tablet Take 1 tablet by mouth daily with breakfast. 30 tablet 3 Marl[place]-3 Fatty Acids 1000 MG capsule Take 1 capsule by mouth 2 times daily. ondansetron 4 MG Tab Dispersible tablet Take 1 tablet by mouth every [address] on tongue (Patient taking differently: Take 1 tablet by mouth as needed. Place on tongue) 15 tablet 0 Potassium chloride 20 MEQ Tab CR tablet Take 1 tablet by mouth daily. 90 tablet 3 Pravastatin 40 MG tablet Take 1 tablet by mouth every evening at 6 PM. 90 tablet 1 Sodium bicarbonate 650 MG tablet Take 1 tablet by mouth 2 times daily. 180 tablet 3 topiramate 200 MG tablet 1 tablet 2 times daily. No facility-administered medications prior to visit. Nurse Note: Review of Systems Constitutional: Negative. HENT: Negative. Eyes: Negative. Respiratory: Negative. Cardiovascular: Negative. Gastrointestinal: Negative. Endocrine: Negative. Genitourinary: Negative. Musculoskeletal: Negative. Skin: Negative. Allergic/Immunologic: Negative. Neurological: Negative. Hematological: Negative. Psychiatric/Behavioral: Negative. Nursing Assessment: Patient presents today for evaluation of vitamin B12 level, complete hemogram as well as sedimentation rate. Patient continues to see Dr iDetz for right shoulder pain and he is doing PT Allergies He has No Known Allergies. Family History His family history includes Cancer in his father; Heart Disease - Other in his father; Kidney Disease in his father. Social History He reports that he has been smoking cigarettes. He has been smoking an average of .25 packs per day. He has never used smokeless tobacco. He reports that he does not drink alcohol and does not use drugs. Physical Exam Blood pressure 119/72, pulse 72, temperature 97.8 F (36.6 C), temperature source Temporal, resp. rate 14, weight 80 kg (176 lb 6.4 oz), SpO2 97 %., Body mass index is 26.05 kg/m . Constitutional: He appears stable Head: Normocephalic and atraumatic. Eyes: Reactive pupils, no conjunctival injection, no jaundice. Ears: Normal TMs, normal external ear and ear canal. Nose: No nasal congestion/bogginess, no sinus tenderness Mouth/Throat: Moist mucous membranes. No pharyngeal erythema Neck: Neck supple. Thyroid not enlarged. No anterior cervical LAD. Cardiovascular: No carotid bruits. Heart with regular rhythm, normal heart sounds. Pulmonary/Chest: Effort normal, breath sounds normal. Musculoskeletal: No joint deformity of hands, neck, or knees noted. Good ROM of all visible joints during exam. Gait & balance normal on observation within exam room. Psychiatric: Mood and affect normal. Judgment normal. Ordered thought content. Results for orders placed or performed in visit on 08/09/23 LIPID PANEL W CALCULATED LDL Result Value Ref Range CHOLESTEROL 204 (H) 120 - 200 MG/DL TRIGLYCERIDE 79 0 - 150 MG/DL HDL CHOLESTEROL 41 26 - 63 MG/DL LDL CHOLESTEROL, CALCULATED 147 (H) <100 MG/DL VLDL Cholesterol, Calculated 16 5 - 25 MG/DL TCHOL/HDL RATIO, MANUAL ENTER 4.98 RATIO SEDIMENTATION RATE, AUTOMATED Result Value Ref Range SEDIMENTATION RATE AUTOMATED 51 (H) 0 - 20 MM/HR CBC, EDIF, PLATELET Result Value Ref Range WBC (WHITE BLOOD COUNT) 8.9 3.6 - 11.0 10*3/uL RBC 4.13 4.0 - 6.1 10*6/uL HEMOGLOBIN (HGB) 13.5 (L) 14.0 - 18.0 G/DL HEMATOCRIT (HCT) 41.2 (L) 42.0 - 52.0 % MEAN CELL VOLUME 99.9 80.0 - 100.0 FL Mean Cell HGB 32.8 26.0 - 35.0 PG MEAN CELL HGB CONCENTRATION 32.9 27.0 - 37.0 G/DL RBC DISTRIBUTION 14.4 11.5 - 14.5 % PLATELET COUNT 373 130 - 400 10*3/uL MEAN PLATELET VOLUME 7.4 7.4 - 11.0 FL DIFFERENTIAL TYPE AUTO DIFF % NEUTROPHILS 59.3 37.0 - 75.0 % LYMPHOCYTE 30.1 20.0 - 55.0 % MONOCYTE % 7.7 0.0 - 10.0 % EOSINOPHIL % 2.4 0.0 - 11.0 % BASOPHIL % 0.5 0.0 - 2.0 % Absolute Neutrophil Count 5.3 1.4 - 6.5 10*3/uL LYMPHOCYTES, ABSOLUTE 2.7 1.2 - 3.4 10*3/uL MONOCYTES, ABSOLUTE 0.7 0.0 - 0.7 10*3/uL ABSOLUTE EOSINOPHIL COUNT 0.2 0.0 - 0.7 10*3/uL ABSOLUTE BASOPHIL COUNT 0.0 0.0 - 0.2 10*3/uL COMPREHENSIVE METABOLIC PANEL Result Value Ref Range Glucose 106 (H) 70 - 100 MG/DL BUN 12 7 - 20 MG/DL CREATININE SERUM 0.97 0.70 - 1.20 MG/DL SODIUM 145 137 - 145 MMOL/L POTASSIUM 4.1 3.5 - 5.1 MMOL/L CHLORIDE 116 (H) 98 - 107 MMOL/L CALCIUM 9.0 8.4 - 10.2 MG/DL PROTEIN, TOTAL 7.5 6.3 - 8.2 GM/DL Albumin 4.4 3.5 - 5.0 G/dl BILIRUBIN, TOTAL 0.4 0.2 - 1.3 MG/DL AST 30 17 - 59 IU/L ALKALINE PHOSPHATASE 118 38 - 126 IU/L CARBON DIOXIDE (CO2) 19 (L) 22 - 30 MMOL/L A/G Ratio 1.4 RATIO ALT 38 <50 IU/L ESTIMATED GFR, NON AMER 85 ml/min/1.73sq.m ESTIMATED GFR, 102 ml/min/1.73sq.m GFR COMMENT Average GFR for 50-59 years old = 93. B12 & FOLATE Result Value Ref Range VITAMIN B12 438 239 - 931 PG/ML FOLATE 5.0 2.56 - 20.0 NG/ML AMMONIA Result Value Ref Range AMMONIA 29 9 - 30 UMOL/L Assessment/Plan Problem List Items Addressed This Visit None Visit Diagnoses Benign hypertension - Primary; Blood pressures been stable. Continue current management we will follow clinically. Dyslipidemia ; Patient to continue pravastatin 40 mg daily. Dietary changes recommended monitor lipid evaluation as well as hepatic function in October 2023 Relevant Orders LIPID PANEL W CALCULATED LDL HEPATIC FUNCTION PANEL IFG (impaired fasting glucose): dietary changes recommended follow hemoglobin A1c as well as fasting blood glucose in 3 months Relevant Orders HEMOGLOBIN A1C CHEM 7 (LYTES,BUN,CREA,GLUC) CBC, EDIF, PLATELET Elevated erythrocyte sedimentation rate ; patient does have mildly elevated sedimentation rate, secondary to right shoulder arthritic changes Relevant Orders SEDIMENTATION RATE, AUTOMATED C REACTIVE PROTEIN Other iron deficiency anemia; patient does find deficiency. I would recommend the patient to have colonoscopy without fail. Monitor iron storage Relevant Orders IRON/IRON BINDING/TRANSFERRIN FERRITIN The documentation within this encounter was likely aided with DFine, an electronic spanisher device. Please excuse any errors or omissions that may not have been recognized at the time of this encounter. Face to face time with this patient was approximately 20 minutes minutes with greater than 50% of the time spent in consultation and / or in coordination of care. Discontinued Medications: There are no discontinued medications. Requested Prescriptions No prescriptions requested or ordered in this encounter There are no Patient Instructions on file for this visit. documented in this encounter [facility] 08-10-2023 History of Present illness Narrative Review of Systems Constitutional: Negative for chills and fever. HENT: Negative for hearing loss. Eyes: Negative for visual disturbance. Respiratory: Negative for shortness of breath. Cardiovascular: Negative for chest pain. Gastrointestinal: Negative for abdominal pain and blood in stool. Endocrine: Negative for polydipsia. Genitourinary: Negative for hematuria. Musculoskeletal: Positive for arthralgias. Negative for myalgias. Neurological: Negative for dizziness, seizures and numbness. Hematological: Does not bruise/bleed easily. Psychiatric/Behavioral: Negative for dysphoric mood. 08/10/23 Chief Complaint: Chief Complaint Patient presents with Follow-up Rt shoulder HPI: Danette presents To the office today in follow up of his right shoulder adhesive capsulitis. He is in therapy and doing well with that. He does think he needs continued therapy. Physical Exam: Vitals: 08/10/23 1309 Temp: 98.3 degrees F (36.8 degrees C) Weight: 78.2 kg (172 lb 6.4 oz) Height: 1.753 m (5' 9 ) On exam today of the right shoulder he has 160 degrees forward flexion. Internal rotation still limited to his buttock level. Rotator cuff strength is 5/5 with patient. He is neurovascularly intact. Diagnostic Studies: None Assessment: 1. Adhesive capsulitis of right shoulder Plan: At this point he is going to continue therapy. See him back in 2 months see how he is progressing. documented in this encounter [facility] 07-06-2023 History of Present illness Narrative [facility] [address] [facility] [address] [facility] [id number] Danette Moore is a 57 y.o. male being seen on 07/06/23 for Chief Complaint Patient presents with colonoscopy consult HPI: The patient presents today to schedule a surveillance colonoscopy. He has a known history of tubulovillous adenoma of the colon. His last colonoscopy was on 06/03/2022. At that time a 1 cm adenomatous polyp was removed. He denies abdominal pain, nausea, vomiting, diarrhea, or constipation. He denies black or bloody bowel movements. His weight is stable. Past Medical History: Diagnosis Date Adenomatous polyp of colon Epilepsy (HCC) Kidney stones Tubulovillous adenoma of colon Past Surgical History: Procedure Laterality Date COLONOSCOPY N/A 06/03/2020 Procedure: COLONOSCOPY with POLYPECTOMY; Surgeon: Damir Johnson MD; Location: [facility]; Service: General Surgery COLONOSCOPY W/ POLYPECTOMY 10/14/2016 multiple tubular adenoma polyps, one hyperplastic polyp....Alex COLONOSCOPY W/ POLYPECTOMY 08/27/2015 hyperplastic polyp....Alex COLONOSCOPY W/ POLYPECTOMY 04/15/2015 tubular adenoma with high grade dysplasia, tubular adenoma and tubulovillous adenoma polyps....Alex EYE SURGERY 1987 ORTHOPEDIC SURGERY Right fracture arm, repair sigmoid polypectomy with high-grade dysplasia VAGUS NERVE STIMULATOR INSERTION 2017 No Known Allergies Current Outpatient Medications Medication Sig Dispense Refill acetaminophen (TYLENOL) 325 MG tablet Take 1 (one) tablet (325 mg total) by mouth as needed for pain . CALCIUM ORAL Take 1 tablet by mouth every other day . cholecalciferol, vitamin D3, 50 mcg (2,000 unit) Tab Take 2,000 Units by mouth Tuesday, Tuesday, Tuesday . cloBAZam (ONFI) 10 mg tablet Take 2.5 (two and a half) tablets (25 mg total) by mouth 2 (two) times a day Morning and evening . fish oil-omega-3 fatty acids 300-1,000 mg capsule Take 2 (two) capsules by mouth 2 (two) times a day . hydroCHLOROthiazide (MICROZIDE) 12.5 mg capsule Take 1 (one) capsule (12.5 mg total) by mouth daily . lamoTRIgine (LAMICTAL) 100 MG tablet Take 1/2 tablet (50 mg) With 200 mg = 250 mg twice a day . lamoTRIgine (LAMICTAL) 200 MG tablet Take 1 (one) tablet (200 mg total) by mouth With 50 mg (1/2 of 100 mg tablet) = 250 mg twice a day . LORazepam (ATIVAN) 1 MG tablet 1 tab if drop down attack,2 days in a row potassium citrate (UROCIT-K) 10 mEq (1,080 mg) SR tablet Take 1 (one) tablet (10 mEq total) by mouth 3 (three) times a day with meals . pravastatin (PRAVACHOL) 40 MG tablet Take 1 (one) tablet (40 mg total) by mouth every evening . topiramate (TOPAMAX) 200 MG tablet Take 1 (one) tablet (200 mg total) by mouth 2 (two) times a day . No current facility-administered medications for this visit. Social History Tobacco Use Smoking status: Every Day Packs/day: .5 Types: Cigarettes Smokeless tobacco: Former Tobacco comments: 4-5 cigarettes daily Vaping Use Vaping Use: Never used Substance Use Topics Alcohol use: No Drug use: No Family History Problem Relation Age of Onset Testicular cancer Father Heart disease Father REVIEW OF SYSTEMS Pertinent positives are listed in HPI, PMSH, SH, ALL, otherwise all systems reviewed below are negative. The following systems were reviewed: [x] Const (fevers, chills, wt. loss, fatigue) [x] CV (HTN, CP, AVILES, edema, DVT) [x] Resp (SOB, pleurisy, asthma, apnea) [x] GI (N, V, D, C, M, abd pain, appetite) [x] Musc (back pain, joint stiffness, gout) [x] Neuro (seizures, syncope, paralysis) [x] Psych (depression, anxiety) [x] Endo (hot/cold intol, polyuria[DM]) [x] Hem/Lymph (Anemia, LA, bleeding) [x] Allerg/Immun (seasonal, immuniz) [x] Eyes (diplopia, cataracts) [x] ENT/mouth (dysphagia, epistaxis) [x] (dysuria, hematuria) [x] Skin/Breast (moles, rash, lumps, nipple changes) Pertinent Positives: See HPI Pertinent Negatives: See HPI Physical Exam: BP 120/77 Pulse 83 Ht 5' 8 Wt 80 kg (176 lb 6.4 oz) SpO2 95% BMI 26.82 kg/m Body mass index is 26.82 kg/m . Constitutional: Well nourished, well developed person in no acute distress. Ambulates without difficulty. Head: Atraumatic and normocephalic. Face: Within normal limits. Eyes: Pupils equal, round, reactive to light. Sclera white. Mouth: Moist mucous membranes, normal dentation. Neck: supple, trachea midline,no masses, no incisions. Lymphatic: No cervical or inguinal lymphadenopathy. Heart: Regular rate and rhythm. Lungs: Clear to auscultation. Abdomen: Soft, non-distended, non-tender, no heptasplenomegaly, no umbilica, incisional, femoral, or inguinal hernias. Pelvis: Stable, non-tender. Skin: Warm, moist, normal skin turgor. Peripheral Vascular: Palapable carotid, radial, and femoral pulses, no peripheral edema. Neuropsych: Alert and oriented, judgement and insight intact. Normal Gait. Assessment: 1. Personal history of colonic polyps No orders of the defined types were placed in this encounter. Plan: Colonoscopy Damir Johnson MD documented in this encounter [facility] 06-08-2023 History of Present illness Narrative Review of Systems Constitutional: Negative for chills, fatigue and fever. Eyes: Negative for visual disturbance. Respiratory: Negative for shortness of breath. Cardiovascular: Negative for chest pain. Gastrointestinal: Negative for abdominal pain and blood in stool. Endocrine: Negative for polydipsia. Genitourinary: Negative for hematuria. Musculoskeletal: Positive for arthralgias. Negative for myalgias. Neurological: Positive for seizures. Hematological: Does not bruise/bleed easily. Psychiatric/Behavioral: Negative for dysphoric mood. 06/08/23 Chief Complaint Patient presents with Right Shoulder - Follow-up HPI: Danette is here today in follow up of his right shoulder. He had a CT arthrogram since I've seen him last which demonstrated some posterior labral tearing, but no tearing of his rotator cuff. Past Medical History: Diagnosis Date At risk for falls history drop down seizures Epilepsy with intractable epilepsy drop down seizures has vns stimulator implanted Renal disease kidney stones Seizures Past Surgical History: Procedure Laterality Date CYSTOURETHROSCOPY W/ URETEROSCOPY/PYELOSCOPY W/ LITHOTRIPSY Bilateral 04/23/2021 Laterality: Bilateral; Surgeon: Joseph Singh MD; Location: [facility] CYSTOURETHROSCOPY W/ URETEROSCOPY/PYELOSCOPY W/ LITHOTRIPSY INCL STENT INSERTION Bilateral 04/09/2021 Laterality: Bilateral; Surgeon: Joseph Singh MD; Location: [facility] INSERTION NEUROSTIMULATOR ELECTRODE & GENERATOR CRANIAL NERVE (EG VAGUS) OPEN N/A 03/03/2018 Laterality: N/A; Surgeon: Riley Rubi DO; Location: [facility] MA[facility] OR ANALYSIS/PROGRAMMING NEUROSTIMULATOR GENERATOR SYSTEM N/A 03/03/2018 Laterality: N/A; Surgeon: Riley Rubi DO; Location: [facility] MAIN OR COLONOSCOPY DIAGNOSTIC 2017 EYE SURGERY Current Outpatient Medications: CALCIUM PO, take 1 Tab by mouth 0900 every other day., Disp: , Rfl: Cholecalciferol (Vitamin D3) 50 MCG (2000 UT) tablet, Take 1 tablet by mouth every Tuesday, Tuesday and Tuesday. (Patient taking differently: Take 1 tablet by mouth every Tuesday, Tuesday and Tuesday. 100 mg M ), Disp: , Rfl: cloBAZam 10 MG tablet, 2.5 tablets 2 times daily., Disp: , Rfl: hydroCHLOROthiazide 12.5 MG capsule, Take 1 capsule by mouth daily., Disp: 90 capsule, Rfl: 3 Lactulose 10 GM/15ML Solution oral solution, , Disp: , Rfl: lamoTRIgine 100 MG tablet, Take 0.5 tablets by mouth 2 times daily., Disp: , Rfl: lamoTRIgine 200 MG tablet, Take 0.5 tablets by mouth 2 times daily. 1 bid Please use the same manufacture., Disp: 180 tablet, Rfl: 1 LORazepam 1 MG Tab, take 1 tablet by mouth every 6 hours as needed for Seizures (one pill if drop attack two days in a row).., Disp: 10 tablet, Rfl: 0 Losartan 50 MG tablet, Take 1 tablet by mouth daily with breakfast., Disp: 30 tablet, Rfl: 3 Marl[place]-3 Fatty Acids 1000 MG capsule, Take 1 capsule by mouth 2 times daily., Disp: , Rfl: ondansetron 4 MG Tab Dispersible tablet, Take 1 tablet by mouth every [address] on tongue (Patient taking differently: Take 1 tablet by mouth as needed. Place on tongue), Disp: 15 tablet, Rfl: 0 Potassium chloride 20 MEQ Tab CR tablet, Take 1 tablet by mouth daily., Disp: 90 tablet, Rfl: 3 Pravastatin 40 MG tablet, Take 1 tablet by mouth every evening at 6 PM., Disp: 90 tablet, Rfl: 1 Sodium bicarbonate 650 MG tablet, Take 1 tablet by mouth 2 times daily., Disp: 180 tablet, Rfl: 3 topiramate 200 MG tablet, 1 tablet 2 times daily., Disp: , Rfl: No Known Allergies Social History Socioeconomic History Marital status: Single Spouse name: Not on file Number of children: Not on file Years of education: Not on file Highest education level: Not on file Occupational History Not on file Tobacco Use Smoking status: Every Day Packs/day: .25 Types: Cigarettes Smokeless tobacco: Never Substance and Sexual Activity Alcohol use: No Drug use: No Sexual activity: Not on file Other Topics Concern Not on file Social History Narrative Not on file Social Determinants of Health Financial Resource Strain: Not on file Food Insecurity: Not on file Transportation Needs: Not on file Physical Activity: Not on file Stress: Not on file Social Connections: Not on file Intimate Partner Violence: Not on file Housing Stability: Not on file Family History Problem Relation Age of Onset Cancer Father testes Kidney Disease Father Heart Disease - Other Father Review of Systems Constitutional: Negative for chills, fatigue and fever. Eyes: Negative for visual disturbance. Respiratory: Negative for shortness of breath. Cardiovascular: Negative for chest pain. Gastrointestinal: Negative for abdominal pain and blood in stool. Endocrine: Negative for polydipsia. Genitourinary: Negative for hematuria. Musculoskeletal: Positive for arthralgias. Negative for myalgias. Neurological: Positive for seizures. Hematological: Does not bruise/bleed easily. Psychiatric/Behavioral: Negative for dysphoric mood. Physical Examination: Vitals: 06/08/23 1332 Temp: 97.4 degrees F (36.3 degrees C) Weight: 78.2 kg (172 lb 6.4 oz) Height: 1.753 m (5' 9 ) Extremity: Examination today demonstrates shoulder motion is still greatly limited. His rotator cuff function is intact. He is neurovascularly intact. Diagnostic Studies: CT arthrogram demonstrates a nondisplaced tear of the posterior superior labrum as well as some fraying of his supraspinatus, but no full thickness tear. Assessment: 1. Right shoulder adhesive capsulitis. Plan: I have injected the glenohumeral joint today. We will set him up for therapy and I will see him back in about 2 months and see how that has helped. documented in this encounter [facility] 06-02-2023 Note FINDINGS/ IMPRESSION : Total fluoroscopy dose 67.8 mGy. The potential risks and benefits of the procedure were explained to the patient including but not limited to risk of infection, pain, and bleeding. The patient gave verbal understanding and a signed written consent was obtained. The patient was prepped and draped in the usual sterile fashion. 1% lidocaine was used for local anesthesia. Using fluoroscopic guidance needle was advanced into the right glenohumeral joint. Following confirmation of placement contrast was administered. The patient tolerated the procedure well without immediate complications. RADIOLOGY 05-18-2023 History of Present illness Narrative Subjective Chief Complaint Patient presents with Right Shoulder - Pain, Follow-up Inj effective, stopped therapy d/t pain. Wanting another injection to restart therapy. Review of Systems Constitutional: Negative for chills, fatigue and fever. Eyes: Negative for visual disturbance. Respiratory: Negative for shortness of breath. Cardiovascular: Negative for chest pain. Gastrointestinal: Negative for abdominal pain and blood in stool. Endocrine: Negative for polydipsia. Genitourinary: Negative for hematuria. Musculoskeletal: Positive for arthralgias. Negative for myalgias. Neurological: Positive for seizures. Seizure last week- Fall Hematological: Does not bruise/bleed easily. Psychiatric/Behavioral: Negative for dysphoric mood. 05/18/23 Chief Complaint: Chief Complaint Patient presents with Right Shoulder - Pain, Follow-up Inj effective, stopped therapy d/t pain. Wanting another injection to restart therapy. HPI: Danette presents to the office today in follow-up of his right shoulder pain. He Had an injection in his last visit that did help him. He went to therapy and learned a home exercise program and was doing it on his own however it that made his symptoms worse. At this point he is having significant pain and loss of range of motion of his shoulder Physical Exam: Vitals: 05/18/23 1448 Temp: 97 degrees F (36.1 degrees C) TempSrc: Temporal Weight: 78.2 kg (172 lb 6.4 oz) Height: 1.753 m (5' 9 ) On exam today of his right shoulder he has only about 90 of active forward flexion. Passively about 120 but there is significant stiffness at that point. He does have tenderness over the anterior aspect of the shoulder. Rotator cuff strength is 3/5 with external rotation 5/5 with internal rotation. He is neurovascularly intact. Diagnostic Studies: None Assessment: 1. Impingement of right shoulder Plan: At this point he is developing a frozen shoulder and I do have concern for his rotator cuff. We will obtain a CT arthrogram of his shoulder and see him back after that is complete to go over findings and treatment options. documented in this encounter [facility] 05-18-2023 History of Present illness Narrative DAILY PROGRESS NOTE Admit Date: (Not on file) Date of Evaluation: 32:29 PM [facility] @JULIET@ IMPRESSION AND PLAN: 55 y/o male with history of seizure and epilepsy is here for CKD care. 1) CKD II Likely secondary to obstructive uropathy Cr 0.85 -> 1.12 -> 1.02 Uric acid 5.7 PTH 15.9 Spot urine pr/cr 0.2 UA is bland Renal US is unremarkable. Will get renal panel. 2) Kidney stone PTH 15.9 -> 17.3 Litholink disclosed high urine pH and low citrate. Continue with Hydrochlorothiazide. 3) HTN: SBP 110s Continue Hydrochlorothiazide. 4) Chronic normocytic anemia H and H 12.9 -> 14.1 -> 13.5 and 38.9 -> 41.6 -> 40.7 Last colonoscopy was 2019 Recommend high iron food. Will get CBC 5) Hypokalemia: K+ 3.2 -> 3.1 Will start potassium supplement. Will repeat potassium level. 6) Metabolic acidosis Bicarb 19 Will start sodium bicarbonate. Will get renal panel. SUBJECTIVE: Patient seen and examined. Chart, medications, labs reviewed. Appointment on 05/16/2023 Component Date Value Ref Range Status URIC ACID 05/16/2023 5.1 3.5 - 8.5 MG/DL Final PTH INTACT 05/16/2023 17.3 12 - 88 pg/mL Final VITAMIN D 25 HYDROXY 05/16/2023 64.7 NG/ML Final Comment: DEFICIENT <20 NG/ML INSUFFICIENT 20-<30 NG/ML SUFFICIENT 30-100 NG/ML POTENTIAL TOXICITY >100 NG/ML Glucose 05/16/2023 100 70 - 100 MG/DL Final Comment: NORMAL <100 mg/dL PREDIABETES 101-126 mg/dL DIABETES 126 mg/dL or higher BUN 05/16/2023 16 7 - 20 MG/DL Final CREATININE SERUM 05/16/2023 1.02 0.70 - 1.20 MG/DL Final SODIUM 05/16/2023 137 137 - 145 MMOL/L Final POTASSIUM 05/16/2023 3.1 (L) 3.5 - 5.1 MMOL/L Final CHLORIDE 05/16/2023 106 98 - 107 MMOL/L Final Please note: Triglyceride levels of 600mg/dL or higher may positively bias chloride results by approximately 2.1 mmol CARBON DIOXIDE (CO2) 05/16/2023 19 (L) 22 - 30 MMOL/L Final Albumin 05/16/2023 4.1 3.5 - 5.0 G/dl Final CALCIUM 05/16/2023 9.0 8.4 - 10.2 MG/DL Final PHOSPHORUS 05/16/2023 2.8 2.5 - 4.5 MG/DL Final ESTIMATED GFR, NON AMER 05/16/2023 80 ml/min/1.73sq.m Final ESTIMATED GFR, 05/16/2023 96 ml/min/1.73sq.m Final GFR COMMENT 05/16/2023 Average GFR for 50-59 years old = 93. Final Comment: Chronic Kidney disease, GFR = <60. Kidney failure, GFR = <15. The GFR estimate is not adjusted for extreme body surface area or acute process, nor has it been validated for women or ethnic groups other than and . MAGNESIUM 05/16/2023 1.9 1.6 - 2.3 MG/DL Final WBC (WHITE BLOOD COUNT) 05/16/2023 9.4 3.6 - 11.0 10*3/uL Final RBC 05/16/2023 3.97 (L) 4.0 - 6.1 10*6/uL Final HEMOGLOBIN (HGB) 05/16/2023 13.1 (L) 14.0 - 18.0 G/DL Final HEMATOCRIT (HCT) 05/16/2023 39.5 (L) 42.0 - 52.0 % Final MEAN CELL VOLUME 05/16/2023 99.4 80.0 - 100.0 FL Final Mean Cell HGB 05/16/2023 32.9 26.0 - 35.0 PG Final MEAN CELL HGB CONCENTRATION 05/16/2023 33.1 27.0 - 37.0 G/DL Final RBC DISTRIBUTION 05/16/2023 15.1 (H) 11.5 - 14.5 % Final PLATELET COUNT 05/16/2023 382 130 - 400 10*3/uL Final MEAN PLATELET VOLUME 05/16/2023 7.7 7.4 - 11.0 FL Final DIFFERENTIAL TYPE 05/16/2023 AUTO DIFF % Final NEUTROPHILS 05/16/2023 54.7 37.0 - 75.0 % Final LYMPHOCYTE 05/16/2023 35.5 20.0 - 55.0 % Final MONOCYTE % 05/16/2023 7.5 0.0 - 10.0 % Final EOSINOPHIL % 05/16/2023 1.4 0.0 - 11.0 % Final BASOPHIL % 05/16/2023 0.9 0.0 - 2.0 % Final Absolute Neutrophil Count 05/16/2023 5.2 1.4 - 6.5 10*3/uL Final LYMPHOCYTES, ABSOLUTE 05/16/2023 3.4 1.2 - 3.4 10*3/uL Final MONOCYTES, ABSOLUTE 05/16/2023 0.7 0.0 - 0.7 10*3/uL Final ABSOLUTE EOSINOPHIL COUNT 05/16/2023 0.1 0.0 - 0.7 10*3/uL Final ABSOLUTE BASOPHIL COUNT 05/16/2023 0.1 0.0 - 0.2 10*3/uL Final PROTEIN MG/DL-URINE 05/16/2023 13 (H) 0 - 12 MG/DL Final CREATININE, MG/DL, URINE 05/16/2023 63.3 MG/DL Final NO NORMAL VALUES ESTABLISHED FOR RANDOM SPECIMENS PROTEIN/CREAT RATIO, URINE 05/16/2023 0.2 Final Comment: REFERENCE RANGES <0.2 NORMAL 0.2-3.5 NON-NEPHROTIC >3.5 NEPHROTIC COLOR, URINE 05/16/2023 LIGHT YELLOW (A) YELLOW Final APPEARANCE, URINE 05/16/2023 CLEAR CLEAR Final Specific [place], Urine 05/16/2023 1.015 1.010 - 1.025 Final PH URINE 05/16/2023 5.5 5.0 - 7.0 Final Urine Protein 05/16/2023 NEGATIVE NEGATIVE mg/dl Final GLUCOSE, URINE 05/16/2023 NEGATIVE NEGATIVE mg/dl Final KETONES, URINE 05/16/2023 NEGATIVE NEGATIVE mg/dl Final BILIRUBIN, URINE 05/16/2023 NEGATIVE NEGATIVE Final BLOOD, URINE DIPSTICK 05/16/2023 NEGATIVE NEGATIVE Final NITRITES, URINE 05/16/2023 NEGATIVE NEGATIVE Final UROBILINOGEN, URINE 05/16/2023 0.2 0.2 - 1.0 E.U./dL Final LEUKOCYTE ESTERASE, URINE 05/16/2023 NEGATIVE NEGATIVE Final SODIUM, URINE RANDOM 05/16/2023 39 30 - 90 MMOL/L Final LABS Labs-ABGs @ABGROUNDS@ Labs-CBC @CBCBRIEFROUNDS@ Labs-Chem 7([facility]) @[facility]@ Labs-Coags WBC (WHITE BLOOD COUNT) Date Value Ref Range Status 05/16/2023 9.4 3.6 - 11.0 10*3/uL Final 05/05/2023 9.5 3.6 - 11.0 10*3/uL Final 01/19/2023 9.1 3.6 - 11.0 10*3/uL Final HEMOGLOBIN (HGB) Date Value Ref Range Status 05/16/2023 13.1 (L) 14.0 - 18.0 G/DL Final 05/05/2023 12.6 (L) 14.0 - 18.0 G/DL Final 01/19/2023 13.5 (L) 14.0 - 18.0 G/DL Final HEMATOCRIT (HCT) Date Value Ref Range Status 05/16/2023 39.5 (L) 42.0 - 52.0 % Final 05/05/2023 38.1 (L) 42.0 - 52.0 % Final 01/19/2023 41.3 (L) 42.0 - 52.0 % Final PLATELET COUNT Date Value Ref Range Status 05/16/2023 382 130 - 400 10*3/uL Final 05/05/2023 384 130 - 400 10*3/uL Final 01/19/2023 380 130 - 400 10*3/uL Final SODIUM Date Value Ref Range Status 05/16/2023 137 137 - 145 MMOL/L Final 05/05/2023 143 137 - 145 MMOL/L Final 01/19/2023 141 136 - 145 MMOL/L Final CHLORIDE Date Value Ref Range Status 05/16/2023 106 98 - 107 MMOL/L Final Comment: Please note: Triglyceride levels of 600mg/dL or higher may positively bias chloride results by approximately 2.1 mmol 05/05/2023 116 (H) 98 - 107 MMOL/L Final Comment: Please note: Triglyceride levels of 600mg/dL or higher may positively bias chloride results by approximately 2.1 mmol 01/19/2023 110 (H) 98 - 107 MMOL/L Final BUN Date Value Ref Range Status 05/16/2023 16 7 - 20 MG/DL Final 05/05/2023 14 7 - 20 MG/DL Final 01/19/2023 23 (H) 7 - 20 MG/DL Final POTASSIUM Date Value Ref Range Status 05/16/2023 3.1 (L) 3.5 - 5.1 MMOL/L Final 05/05/2023 3.5 3.5 - 5.1 MMOL/L Final 01/19/2023 3.6 3.5 - 5.1 MMOL/L Final CREATININE SERUM Date Value Ref Range Status 05/16/2023 1.02 0.70 - 1.20 MG/DL Final 05/05/2023 0.97 0.70 - 1.20 MG/DL Final 01/19/2023 1.08 0.66 - 1.25 MG/DL Final Glucose Date Value Ref Range Status 05/16/2023 100 70 - 100 MG/DL Final Comment: NORMAL <100 mg/dL PREDIABETES 101-126 mg/dL DIABETES 126 mg/dL or higher 05/05/2023 93 70 - 100 MG/DL Final Comment: NORMAL <100 mg/dL PREDIABETES 101-126 mg/dL DIABETES 126 mg/dL or higher 01/19/2023 105 (H) 70 - 100 MG/DL Final Comment: NORMAL <100 mg/dL PREDIABETES 101-126 mg/dL DIABETES 126 mg/dL or higher PT Date Value Ref Range Status 02/20/2018 12.6 11.9 - 14.2 sec Final PROTEIN, TOTAL Date Value Ref Range Status 05/05/2023 6.8 6.3 - 8.2 GM/DL Final 01/19/2023 7.7 6.3 - 8.2 GM/DL Final 06/02/2022 6.8 6.3 - 8.2 GM/DL Final Albumin Date Value Ref Range Status 05/16/2023 4.1 3.5 - 5.0 G/dl Final 05/05/2023 3.9 3.5 - 5.0 G/DL Final 01/19/2023 3.9 3.5 - 5.0 G/dl Final AST Date Value Ref Range Status 05/05/2023 21 17 - 59 IU/L Final 01/19/2023 19 15 - 41 IU/L Final 06/02/2022 17 15 - 41 IU/L Final ALT Date Value Ref Range Status 05/05/2023 23 <50 IU/L Final 01/19/2023 29 17 - 63 IU/L Final 06/02/2022 21 17 - 63 IU/L Final BILIRUBIN, TOTAL Date Value Ref Range Status 05/05/2023 0.4 0.2 - 1.3 MG/DL Final CALCIUM Date Value Ref Range Status 05/16/2023 9.0 8.4 - 10.2 MG/DL Final 01/19/2023 9.1 8.4 - 10.2 MG/DL Final 11/15/2022 8.9 8.4 - 10.2 MG/DL Final PHOSPHORUS Date Value Ref Range Status 05/16/2023 2.8 2.5 - 4.5 MG/DL Final 11/15/2022 2.6 2.5 - 4.5 MG/DL Final 10/28/2021 3.5 2.5 - 4.5 MG/DL Final MAGNESIUM Date Value Ref Range Status 05/16/2023 1.9 1.6 - 2.3 MG/DL Final 11/15/2022 1.9 1.6 - 2.3 MG/DL Final 10/28/2021 1.9 1.6 - 2.3 MG/DL Final Lab Results Component Value Date CREATURINE 63.3 05/16/2023 CREATSERUM 1.02 05/16/2023 BUN 16 05/16/2023 SODIUM 137 05/16/2023 POTASSIUM 3.1 (L) 05/16/2023 CHLORIDE 106 05/16/2023 CO2 19 (L) 05/16/2023 ROS: Constitution: No fever, no chill HEENT: No headache, no sinus issues CV: No chest pain, no palpitation Lung: No cough, No SOB Abd: No diarrhea, no constipation Neuro: No seizure, no loss of consciousness Heme: No bleeding, no bruise PHYSICAL EXAM: Wt Readings from Last 3 Encounters: 05/18/23 78.2 kg (172 lb 4.8 oz) 05/10/23 79.8 kg (176 lb) 02/16/23 79.2 kg (174 lb 9.7 oz) Temp Readings from Last 3 Encounters: 05/10/23 97.9 F (36.6 C) (Temporal) 02/16/23 97 F (36.1 C) (Temporal) 01/24/23 97.6 F (36.4 C) (Temporal) BP Readings from Last 3 Encounters: 05/18/23 110/78 05/10/23 130/62 01/24/23 159/67 Pulse Readings from Last 3 Encounters: 05/18/23 71 05/10/23 72 01/24/23 65 Gen: NAD, lying in bed, conversant HEENT: Atraumatic, PERRLA, moist membrane CV: RRR, nl S1 and S2, no m/g/r Lung: CTAB, no wheezing, no crackle Abd: +BS, nontender, no distended Ext: No rash, no clubbing, no cyanosis. No edema. Neuro: CNII-XII grossly intact, 5/5 strength, normal tone Skin: Warm and dry documented in this encounter [facility] 05-10-2023 History of Present illness Narrative Nurse Note: Review of Systems Constitutional: Negative. HENT: Negative. Eyes: Negative. Respiratory: Negative. Cardiovascular: Negative. Gastrointestinal: Negative. Endocrine: Negative. Genitourinary: Negative. Musculoskeletal: Negative. Skin: Negative. Allergic/Immunologic: Negative. Neurological: Negative. Hematological: Negative. Psychiatric/Behavioral: Negative. Nursing Assessment: Patient presents today for evaluation of blood pressure, Impaired fasting blood glucose, dyslipidemia as well as vitamin D level. Physical Exam Chief Complaint: Chief Complaint Patient presents with Follow-up evaluation of blood pressure, Impaired fasting blood glucose, dyslipidemia as well as vitamin D level. History of Present Illness Danette Moore is a 57 y.o. male who presents today with the following concerns: Follow-up (evaluation of blood pressure, Impaired fasting blood glucose, dyslipidemia as well as vitamin D level.) Patient with a history of hypertension, renal stones currently on losartan therapy as well as low-dose hydrochlorothiazide, history of dyslipidemia, vitamin D deficiency as well as recently noted mild anemia with macrocytosis has been seen for evaluation of his blood pressure readings. His blood pressure readings have been almost normotensive except for a few readings of hypotensive. The patient has been recommended to increase fluids. No seizure activity noted. He is been followed by nephrology services as well as neurology services for seizure disorder. Patient has not had any drop attacks. Hemoglobin 12.6 g/dL. No bleeding per rectum. Patient's last colonoscopy was done in 2017. Heart:Patient denies any exertional chest pain, dyspnea, palpitations, syncope, orthopnea, edema or paroxysmal nocturnal dyspnea. Lung:The patient denies cough, chest pain, dyspnea, wheezing or hemoptysis. Abdomen: The patient denies abdominal or flank pain, anorexia, nausea or vomiting, dysphagia, change in bowel habits or black or bloody stools or weight loss. Extremities:Patient does have a right shoulder pain. She is been seen by orthopedic services for the same. Problems discussed today also include: problems updated.HPI comments may also be noted in 'Overview' section on the Problem List and appear at the end of this note under problem summary. 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 Reviewed today. Medications on arrival 05/10/2023 Outpatient Medications Prior to Visit Medication Sig Dispense Refill CALCIUM PO take 1 Tab by mouth 0900 every other day. Cholecalciferol (Vitamin D3) 50 MCG (1999 UT) tablet Take 1 tablet by mouth every Tuesday, Tuesday and Tuesday. (Patient taking differently: Take 1 tablet by mouth every Tuesday, Tuesday and Tuesday. 100 mg M W ) cloBAZam 10 MG tablet 2.5 tablets 2 times daily. hydroCHLOROthiazide 12.5 MG capsule Take 1 capsule by mouth daily. 90 capsule 3 Lactulose 10 GM/15ML Solution oral solution lamoTRIgine 100 MG tablet Take 0.5 tablets by mouth 2 times daily. lamoTRIgine 200 MG tablet Take 0.5 tablets by mouth 2 times daily. 1 bid Please use the same manufacture. 180 tablet 1 LORazepam 1 MG Tab take 1 tablet by mouth every 6 hours as needed for Seizures (one pill if drop attack two days in a row).. 10 tablet 0 Losartan 50 MG tablet Take 1 tablet by mouth daily with breakfast. 30 tablet 3 [place]-3 Fatty Acids 1000 MG capsule Take 1 capsule by mouth 2 times daily. ondansetron 4 MG Tab Dispersible tablet Take 1 tablet by mouth every [address]. [address] on tongue (Patient taking differently: Take 1 tablet by mouth as needed. Place on tongue) 15 tablet 0 Pravastatin 40 MG tablet Take 1 tablet by mouth every evening at 6 PM. 90 tablet 1 topiramate 200 MG tablet 1 tablet 2 times daily. No facility-administered medications prior to visit. Nurse Note: Review of Systems Constitutional: Negative. HENT: Negative. Eyes: Negative. Respiratory: Negative. Cardiovascular: Negative. Gastrointestinal: Negative. Endocrine: Negative. Genitourinary: Negative. Musculoskeletal: Negative. Skin: Negative. Allergic/Immunologic: Negative. Neurological: Negative. Hematological: Negative. Psychiatric/Behavioral: Negative. Nursing Assessment: Patient presents today for evaluation of blood pressure, Impaired fasting blood glucose, dyslipidemia as well as vitamin D level. Allergies He has No Known Allergies. Family History His family history includes Cancer in his father; Heart Disease - Other in his father; Kidney Disease in his father. Social History He reports that he has been smoking cigarettes. He has been smoking an average of .25 packs per day. He has never used smokeless tobacco. He reports that he does not drink alcohol and does not use drugs. Physical Exam Blood pressure 130/62, pulse 72, temperature 97.9 F (36.6 C), temperature source Temporal, resp. rate 14, weight 79.8 kg (176 lb), SpO2 98 %., Body mass index is 25.99 kg/m . Constitutional: He appears stable stable Head: Normocephalic and atraumatic. Wearing Helmet Eyes: Reactive pupils, no conjunctival injection, no jaundice. Ears: Normal TMs, normal external ear and ear canal. Nose: No nasal congestion/bogginess, no sinus tenderness Mouth/Throat: Moist mucous membranes. No pharyngeal erythema Neck: Neck supple. Thyroid not enlarged. No anterior cervical LAD. Cardiovascular: No carotid bruits. Heart with regular rhythm, normal heart sounds. Pulmonary/Chest: Effort normal, breath sounds normal. Musculoskeletal: There is some tenderness noted in the right shoulder area. His range of motion of the right shoulder has decreased. Psychiatric: Mood and affect normal. Judgment normal. Ordered thought content. Results for orders placed or performed in visit on 05/05/23 LIPID PANEL W CALCULATED LDL Result Value Ref Range CHOLESTEROL 191 120 - 200 MG/DL TRIGLYCERIDE 89 0 - 150 MG/DL HDL CHOLESTEROL 34 26 - 63 MG/DL LDL CHOLESTEROL, CALCULATED 139 MG/DL VLDL Cholesterol, Calculated 18 MG/DL TCHOL/HDL RATIO, MANUAL ENTER 5.62 RATIO HEPATIC FUNCTION PANEL Result Value Ref Range Albumin 3.9 3.5 - 5.0 G/DL BILIRUBIN, TOTAL 0.4 0.2 - 1.3 MG/DL ALKALINE PHOSPHATASE 115 38 - 126 IU/L AST 21 17 - 59 IU/L BILIRUBIN, DIRECT 0.1 0.0 - 0.4 MG/DL PROTEIN, TOTAL 6.8 6.3 - 8.2 GM/DL ALT 23 <50 IU/L CBC, EDIF, PLATELET Result Value Ref Range WBC (WHITE BLOOD COUNT) 9.5 3.6 - 11.0 10*3/uL RBC 3.79 (L) 4.0 - 6.1 10*6/uL HEMOGLOBIN (HGB) 12.6 (L) 14.0 - 18.0 G/DL HEMATOCRIT (HCT) 38.1 (L) 42.0 - 52.0 % MEAN CELL VOLUME 100.5 (H) 80.0 - 100.0 FL Mean Cell HGB 33.3 26.0 - 35.0 PG MEAN CELL HGB CONCENTRATION 33.1 27.0 - 37.0 G/DL RBC DISTRIBUTION 15.1 (H) 11.5 - 14.5 % PLATELET COUNT 384 130 - 400 10*3/uL MEAN PLATELET VOLUME 7.3 (L) 7.4 - 11.0 FL DIFFERENTIAL TYPE AUTO DIFF % NEUTROPHILS 54.4 37.0 - 75.0 % LYMPHOCYTE 35.7 20.0 - 55.0 % MONOCYTE % 7.8 0.0 - 10.0 % EOSINOPHIL % 1.5 0.0 - 11.0 % BASOPHIL % 0.6 0.0 - 2.0 % Absolute Neutrophil Count 5.1 1.4 - 6.5 10*3/uL LYMPHOCYTES, ABSOLUTE 3.4 1.2 - 3.4 10*3/uL MONOCYTES, ABSOLUTE 0.7 0.0 - 0.7 10*3/uL ABSOLUTE EOSINOPHIL COUNT 0.1 0.0 - 0.7 10*3/uL ABSOLUTE BASOPHIL COUNT 0.1 0.0 - 0.2 10*3/uL CHEM 7 (LYTES,BUN,CREA,GLUC) Result Value Ref Range Glucose 93 70 - 100 MG/DL BUN 14 7 - 20 MG/DL CREATININE SERUM 0.97 0.70 - 1.20 MG/DL SODIUM 143 137 - 145 MMOL/L POTASSIUM 3.5 3.5 - 5.1 MMOL/L CHLORIDE 116 (H) 98 - 107 MMOL/L CARBON DIOXIDE (CO2) 17 (LL) 22 - 30 MMOL/L ESTIMATED GFR, NON AMER 85 ml/min/1.73sq.m ESTIMATED GFR, 102 ml/min/1.73sq.m GFR COMMENT Average GFR for 50-59 years old = 93. HEMOGLOBIN A1C Result Value Ref Range HEMOGLOBIN A1C 5.8 0 - 6 % Estimated Average Glucose 120 mg/dL VITAMIN D (25-HYDROXY,TOTAL) Result Value Ref Range VITAMIN D 25 HYDROXY 62.5 NG/ML SEDIMENTATION RATE, AUTOMATED Result Value Ref Range SEDIMENTATION RATE AUTOMATED 32 (H) 0 - 20 MM/HR Assessment/Plan Problem List Items Addressed This Visit None Visit Diagnoses Vitamin B12 deficiency - Primary; patient does have mild macrocytosis with a hemoglobin of 12.6 g/dL. Recommend the patient to have a cyanocobalamin level along with folic acid level. Relevant Orders B12 & FOLATE Dyslipidemia ; Lipids have been stable. Continue current management we will follow lipid evaluation and proceed. Relevant Orders LIPID PANEL W CALCULATED LDL Benign hypertension: blood pressure been stable. Although he has had 2 episodes of mild hypertension. Recommend the patient increase fluids. He has been on hydrochlorothiazide 12.5 MG by mouth daily in the mornings. I would recommend the patient to continue losartan 50 mg daily and if his blood pressure tends to be I would recommend the patient to be on lovastatin 25 mg by mouth daily. Relevant Orders COMPREHENSIVE METABOLIC PANEL CBC, EDIF, PLATELET IFG (impaired fasting glucose); dietary changes recommended. We will continue to monitor his fasting blood glucose evaluation periodically Elevated erythrocyte sedimentation rate ; his elevated Sedimentation Rate May Be Secondary to Chronic Arthritic Change in the Right Shoulder. Would Follow His a Sedimentation Rate As Well As Follow-Up with the Orthopedic Services. Relevant Orders SEDIMENTATION RATE, AUTOMATED The documentation within this encounter was likely aided with DFine, an electronic spanisher device. Please excuse any errors or omissions that may not have been recognized at the time of this encounter. Face to face time with this patient was approximately 30 minutes minutes with greater than 50% of the time spent in consultation and / or in coordination of care. Discontinued Medications: There are no discontinued medications. Requested Prescriptions No prescriptions requested or ordered in this encounter There are no Patient Instructions on file for this visit. documented in this encounter [facility] 02-16-2023 History of Present illness Narrative Subjective Chief Complaint Patient presents with Right Shoulder - Pain Right Hand - Pain, Follow-up Review of Systems Constitutional: Negative for chills, fatigue and fever. Eyes: Negative for visual disturbance. Respiratory: Negative for shortness of breath. Cardiovascular: Negative for chest pain. Gastrointestinal: Negative for abdominal pain and blood in stool. Endocrine: Positive for polydipsia. Genitourinary: Negative for hematuria. Musculoskeletal: Positive for arthralgias. Negative for myalgias. Neurological: Negative for seizures. Hematological: Does not bruise/bleed easily. Psychiatric/Behavioral: Negative for dysphoric mood. Associated Order(s): LARGE JOINT/BURSA INJECTION AND/OR ASPIRATION: R subacromial bursa Post-Procedure Diagnose(s): Tendinopathy of right rotator cuff LARGE JOINT/BURSA INJECTION AND/OR ASPIRATION: R subacromial bursa Date/Time: 02/16/2023 3:45 PM Performed by: Riley Dietz MD Authorized by: Riley Dietz MD Supporting Documentation Indications: pain Procedure Details: Location: shoulder - R subacromial bursa Needle size: 21 G Approach: posterior Medication Verification: I have personally verified and performed the final check of the medication(s) used in this procedure prior to administration. The following items were included during the verification process for medication(s) administered: drug name, strength, volume, expiration, physical integrity and appearance of the medication(s). Medications administered: 80 mg methylPREDNISolone acetate 80 MG/ML Patient tolerance: patient tolerated the procedure well with no immediate complications Consent: Informed consent is obtained. Risks and benefits have been discussed. The patient understands and wishes to proceed. Preparation: Patient was prepped in the usual sterile fashion. The patient was prepped with alcohol. 02/16/23 Chief Complaint Patient presents with Right Shoulder - Pain Right Hand - Pain, Follow-up HPI: Danette is here today in follow up of his right thumb with a new complaint of right shoulder pain. He states his shoulder has been hurting about 3 weeks, no history of trauma. He had a similar problem on the left and therapy worked quite well for that. Past Medical History: Diagnosis Date At risk for falls history drop down seizures Epilepsy with intractable epilepsy drop down seizures has vns stimulator implanted Renal disease kidney stones Seizures Past Surgical History: Procedure Laterality Date CYSTOURETHROSCOPY W/ URETEROSCOPY/PYELOSCOPY W/ LITHOTRIPSY Bilateral 04/23/2021 Laterality: Bilateral; Surgeon: Joseph Singh MD; Location: [facility] OR CYSTOURETHROSCOPY W/ URETEROSCOPY/PYELOSCOPY W/ LITHOTRIPSY INCL STENT INSERTION Bilateral 04/09/2021 Laterality: Bilateral; Surgeon: Joseph Singh MD; Location: [facility] OR INSERTION NEUROSTIMULATOR ELECTRODE & GENERATOR CRANIAL NERVE (EG VAGUS) OPEN N/A 03/03/2018 Laterality: N/A; Surgeon: Riley Rubi DO; Location: [facility] MAIN OR ANALYSIS/PROGRAMMING NEUROSTIMULATOR GENERATOR SYSTEM N/A 03/03/2018 Laterality: N/A; Surgeon: Riley Rubi DO; Location: [facility] MAIN OR COLONOSCOPY DIAGNOSTIC 2017 EYE SURGERY Current Outpatient Medications: CALCIUM PO, take 1 Tab by mouth 0900 every other day., Disp: , Rfl: Cholecalciferol (Vitamin D3) 50 MCG (1999 UT) tablet, Take 1 tablet by mouth every Tuesday, Tuesday and Tuesday. (Patient taking differently: Take 1 tablet by mouth every Tuesday, Tuesday and Tuesday. 100 mg M W F), Disp: , Rfl: cloBAZam 10 MG tablet, 2.5 tablets 2 times daily., Disp: , Rfl: hydroCHLOROthiazide 12.5 MG capsule, Take 1 capsule by mouth daily., Disp: 90 capsule, Rfl: 3 Lactulose 10 GM/15ML Solution oral solution, , Disp: , Rfl: lamoTRIgine 100 MG tablet, Take 0.5 tablets by mouth 2 times daily., Disp: , Rfl: lamoTRIgine 200 MG tablet, Take 0.5 tablets by mouth 2 times daily. 1 bid Please use the same manufacture., Disp: 180 tablet, Rfl: 1 LORazepam 1 MG Tab, take 1 tablet by mouth every 6 hours as needed for Seizures (one pill if drop attack two days in a row).., Disp: 10 tablet, Rfl: 0 Losartan 50 MG tablet, Take 1 tablet by mouth daily with breakfast., Disp: 30 tablet, Rfl: 3 Marlton-3 Fatty Acids 1000 MG capsule, Take 1 capsule by mouth 2 times daily., Disp: , Rfl: ondansetron 4 MG Tab Dispersible tablet, Take 1 tablet by mouth every [address] on tongue (Patient taking differently: Take 1 tablet by mouth as needed. Place on tongue), Disp: 15 tablet, Rfl: 0 Pravastatin 40 MG tablet, Take 1 tablet by mouth every evening at 6 PM., Disp: 90 tablet, Rfl: 1 topiramate 200 MG tablet, 1 tablet 2 times daily., Disp: , Rfl: No Known Allergies Social History Socioeconomic History Marital status: Single Spouse name: Not on file Number of children: Not on file Years of education: Not on file Highest education level: Not on file Occupational History Not on file Tobacco Use Smoking status: Every Day Packs/day: 0.25 Types: Cigarettes Smokeless tobacco: Never Substance and Sexual Activity Alcohol use: No Drug use: No Sexual activity: Not on file Other Topics Concern Not on file Social History Narrative Not on file Social Determinants of Health Financial Resource Strain: Not on file Food Insecurity: Not on file Transportation Needs: Not on file Physical Activity: Not on file Stress: Not on file Social Connections: Not on file Intimate Partner Violence: Not on file Housing Stability: Not on file Family History Problem Relation Age of Onset Cancer Father testes Kidney Disease Father Heart Disease - Other Father Review of Systems Constitutional: Negative for chills, fatigue and fever. Eyes: Negative for visual disturbance. Respiratory: Negative for shortness of breath. Cardiovascular: Negative for chest pain. Gastrointestinal: Negative for abdominal pain and blood in stool. Endocrine: Positive for polydipsia. Genitourinary: Negative for hematuria. Musculoskeletal: Positive for arthralgias. Negative for myalgias. Neurological: Negative for seizures. Hematological: Does not bruise/bleed easily. Psychiatric/Behavioral: Negative for dysphoric mood. LARGE JOINT/BURSA INJECTION AND/OR ASPIRATION: R subacromial bursa Date/Time: 02/16/2023 3:45 PM Performed by: Riley Dietz MD Authorized by: Riley Dietz MD Supporting Documentation Indications: pain Procedure Details: Location: shoulder - R subacromial bursa Needle size: 21 G Approach: posterior Medication Verification: I have personally verified and performed the final check of the medication(s) used in this procedure prior to administration. The following items were included during the verification process for medication(s) administered: drug name, strength, volume, expiration, physical integrity and appearance of the medication(s). Medications administered: 80 mg methylprednisolone acetate 80 MG/ML Patient tolerance: patient tolerated the procedure well with no immediate complications Consent: Informed consent is obtained. Risks and benefits have been discussed. The patient understands and wishes to proceed. Preparation: Patient was prepped in the usual sterile fashion. The patient was prepped with alcohol. Physical Examination: Vitals: 02/16/23 1533 Temp: 97 degrees F (36.1 degrees C) TempSrc: Temporal Weight: 79.2 kg (174 lb 9.7 oz) Height: 1.753 m (5' 9 ) Extremity: Examination of the right thumb demonstrates minimal tenderness. He is neurovascularly intact. Skin is warm and dry. The right shoulder demonstrates limited range of motion secondary to pain. He has positive impingement signs and pain with crossover maneuver. Good rotator cuff function. He is neurovascularly intact. Diagnostic Studies: AP and lateral projections of the right shoulder demonstrate no acute fracture, dislocation or other bony abnormality. Assessment: 1. Right thumb sprain, doing much better. 2. Right shoulder impingement. The subacromial space was injected per the procedure note. I will have him see a therapist one time for a home exercise program. Plan: I will see him back in 3 months and see how that combination has helped. documented in this encounter [facility] 01-24-2023 History of Present illness Narrative Nurse Note: Review of Systems Constitutional: Negative. HENT: Negative. Eyes: Negative. Respiratory: Negative. Cardiovascular: Negative. Gastrointestinal: Negative. Endocrine: Negative. Genitourinary: Negative. Musculoskeletal: Negative. Skin: Negative. Allergic/Immunologic: Negative. Neurological: Negative. Hematological: Negative. Psychiatric/Behavioral: Negative. Nursing Assessment: Pt presents for 3mth follow up evaluate vitamin d deficiency, IFG (impaired fasting glucose). Physical Exam Chief Complaint: Chief Complaint Patient presents with Follow-up 3mth evaluate vitamin d deficiency, IFG (impaired fasting glucose) History of Present Illness Danette Moore is a 57 y.o. male who presents today with the following concerns: Follow-up (3mth evaluate vitamin d deficiency, IFG (impaired fasting glucose)) patient with a history of epileptic drop attacks, impaired fasting blood glucose, dyslipidemia and has been seen in the office today for evaluation of labs. Patient also has had a right handed tenosynovitis being managed by orthopedic services. He does have a brace which is helped him. Patient's labs been reviewed. His fasting blood glucose mildly elevated. Lipids been Mildly elevated. Vitamin D adequate. Patient is been followed by neurology services. He has not had any recent Epileptic drop attacks. Heart:Patient denies any exertional chest pain, dyspnea, palpitations, syncope, orthopnea, edema or paroxysmal nocturnal dyspnea. Lung:The patient denies cough, chest pain, dyspnea, wheezing or hemoptysis. Abdomen: The patient denies abdominal or flank pain, anorexia, nausea or vomiting, dysphagia, change in bowel habits or black or bloody stools or weight loss. Extremities:Patient denies low back pain or painful or reduced range of motion of the back. Problems discussed today also include: problems updated.HPI comments may also be noted in 'Overview' section on the Problem List and appear at the end of this note under problem summary. 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 Reviewed today. Medications on arrival 01/24/2023 Outpatient Medications Prior to Visit Medication Sig Dispense Refill CALCIUM PO take 1 Tab by mouth 0900 every other day. Cholecalciferol (Vitamin D3) 50 MCG (2000 UT) tablet Take 1 tablet by mouth every Tuesday, Tuesday and Tuesday. (Patient taking differently: Take 1 tablet by mouth every Tuesday, Tuesday and Tuesday. 100 mg M W ) cloBAZam 10 MG tablet 2.5 tablets 2 times daily. hydroCHLOROthiazide 12.5 MG capsule Take 1 capsule by mouth daily. 90 capsule 3 Lactulose 10 GM/15ML Solution oral solution lamoTRIgine 100 MG tablet Take 0.5 tablets by mouth 2 times daily. lamoTRIgine 200 MG tablet Take 0.5 tablets by mouth 2 times daily. 1 bid Please use the same manufacture. 180 tablet 1 LORazepam 1 MG Tab take 1 tablet by mouth every 6 hours as needed for Seizures (one pill if drop attack two days in a row).. 10 tablet 0 Marlton-3 Fatty Acids 1000 MG capsule Take 1 capsule by mouth 2 times daily. ondansetron 4 MG Tab Dispersible tablet Take 1 tablet by mouth every [address]. [address] on tongue (Patient taking differently: Take 1 tablet by mouth as needed. Place on tongue) 15 tablet 0 Pravastatin 40 MG tablet Take 1 tablet by mouth every evening at 6 PM. 90 tablet 1 topiramate 200 MG tablet 1 tablet 2 times daily. potassium citrate 10 MEQ (1080 MG) Tab CR Take 1 tablet by mouth 3 times daily. 270 tablet 3 No facility-administered medications prior to visit. Nurse Note: Review of Systems Constitutional: Negative. HENT: Negative. Eyes: Negative. Respiratory: Negative. Cardiovascular: Negative. Gastrointestinal: Negative. Endocrine: Negative. Genitourinary: Negative. Musculoskeletal: Negative. Skin: Negative. Allergic/Immunologic: Negative. Neurological: Negative. Hematological: Negative. Psychiatric/Behavioral: Negative. Nursing Assessment: Pt presents for 3mth follow up evaluate vitamin d deficiency, IFG (impaired fasting glucose). Allergies He has No Known Allergies. Family History His family history includes Cancer in his father; Heart Disease - Other in his father; Kidney Disease in his father. Social History He reports that he has been smoking cigarettes. He has been smoking an average of .25 packs per day. He has never used smokeless tobacco. He reports that he does not drink alcohol and does not use drugs. Physical Exam Blood pressure 159/67, pulse 65, temperature 97.6 F (36.4 C), temperature source Temporal, resp. rate 14, height 1.753 m (5' 9 ), weight 79.2 kg (174 lb 9.6 oz), SpO2 96 %., Body mass index is 25.78 kg/m . Constitutional: He appears stable Head: Normocephalic and atraumatic. Eyes: Reactive pupils, no conjunctival injection, no jaundice. Ears: Normal TMs, normal external ear and ear canal. Nose: No nasal congestion/bogginess, no sinus tenderness Mouth/Throat: Moist mucous membranes. No pharyngeal erythema Neck: Neck supple. Thyroid not enlarged. No anterior cervical LAD. Cardiovascular: No carotid bruits. Heart with regular rhythm, normal heart sounds. Pulmonary/Chest: Effort normal, breath sounds normal. Musculoskeletal: No joint deformity of hands, neck, or knees noted. Good ROM of all visible joints during exam. Gait & balance normal on observation within exam room. Psychiatric: Mood and affect normal. Judgment normal. Ordered thought content. Results for orders placed or performed in visit on 01/19/23 VITAMIN D (25-HYDROXY,TOTAL) Result Value Ref Range VITAMIN D 25 HYDROXY 53.1 >30 NG/ML HEMOGLOBIN A1C Result Value Ref Range HEMOGLOBIN A1C 5.7 <6 % Estimated Average Glucose 117 mg/dL CBC, EDIF, PLATELET Result Value Ref Range WBC (WHITE BLOOD COUNT) 9.1 3.6 - 11.0 10*3/uL RBC 4.14 4.0 - 6.1 10*6/uL HEMOGLOBIN (HGB) 13.5 (L) 14.0 - 18.0 G/DL HEMATOCRIT (HCT) 41.3 (L) 42.0 - 52.0 % MEAN CELL VOLUME 99.8 80.0 - 100.0 FL Mean Cell HGB 32.5 26.0 - 35.0 PG MEAN CELL HGB CONCENTRATION 32.6 27.0 - 37.0 G/DL RBC DISTRIBUTION 15.5 (H) 11.5 - 14.5 % PLATELET COUNT 380 130 - 400 10*3/uL MEAN PLATELET VOLUME 7.4 7.4 - 11.0 FL DIFFERENTIAL TYPE AUTO DIFF % NEUTROPHILS 48.2 37.0 - 75.0 % LYMPHOCYTE 41.8 20.0 - 55.0 % MONOCYTE % 7.5 0.0 - 10.0 % EOSINOPHIL % 2.1 0.0 - 11.0 % BASOPHIL % 0.4 0.0 - 2.0 % Absolute Neutrophil Count 4.4 1.4 - 6.5 10*3/uL LYMPHOCYTES, ABSOLUTE 3.8 (H) 1.2 - 3.4 10*3/uL MONOCYTES, ABSOLUTE 0.7 0.0 - 0.7 10*3/uL ABSOLUTE EOSINOPHIL COUNT 0.2 0.0 - 0.7 10*3/uL ABSOLUTE BASOPHIL COUNT 0.0 0.0 - 0.2 10*3/uL LIPID PANEL W CALCULATED LDL Result Value Ref Range CHOLESTEROL 220 (H) 100 - 199 MG/DL TRIGLYCERIDE 92 <150 MG/DL HDL CHOLESTEROL 49 40 - 60 MG/DL LDL CHOLESTEROL, CALCULATED 153 (H) 0 - 100 MG/DL VLDL Cholesterol, Calculated 18 5.0 - 25.0 MG/DL TCHOL/HDL RATIO, MANUAL ENTER 4.49 RATIO COMPREHENSIVE METABOLIC PANEL Result Value Ref Range Glucose 105 (H) 70 - 100 MG/DL BUN 23 (H) 7 - 20 MG/DL CREATININE SERUM 1.08 0.66 - 1.25 MG/DL SODIUM 141 136 - 145 MMOL/L POTASSIUM 3.6 3.5 - 5.1 MMOL/L CHLORIDE 110 (H) 98 - 107 MMOL/L CALCIUM 9.1 8.4 - 10.2 MG/DL PROTEIN, TOTAL 7.7 6.3 - 8.2 GM/DL Albumin 3.9 3.5 - 5.0 G/dl BILIRUBIN, TOTAL 0.4 0.2 - 1.2 MG/DL AST 19 15 - 41 IU/L ALKALINE PHOSPHATASE 96 38 - 126 IU/L CARBON DIOXIDE (CO2) 22 22 - 30 MMOL/L A/G Ratio 1.0 (L) 1.3 - 2.2 RATIO ALT 29 17 - 63 IU/L ESTIMATED GFR, NON AMER 75 ml/min/1.73sq.m ESTIMATED GFR, 90 ml/min/1.73sq.m GFR COMMENT Average GFR for 50-59 years old = 93. C REACTIVE PROTEIN Result Value Ref Range C-REACTIVE PROTEIN <7.9 0 - 10.0 MG/L SEDIMENTATION RATE, AUTOMATED Result Value Ref Range SEDIMENTATION RATE AUTOMATED 47 (H) 0 - 20 MM/HR Assessment/Plan Problem List Items Addressed This Visit Digestive Vitamin D deficiency; Vitamin D adequate. Continue current therapy will follow vitamin D level periodically Relevant Orders VITAMIN D (25-HYDROXY,TOTAL) Other Visit Diagnoses Dyslipidemia - Primary; it is a mildly elevated LDL by measurement. Dietary changes recommended. I would recommend him to have a repeat lipid evaluation in April 2023 Relevant Orders LIPID PANEL W CALCULATED LDL HEPATIC FUNCTION PANEL IFG (impaired fasting glucose) ; avoid amount of starch as well as high-calorie diet. Follow his hemoglobin A1c as well as fasting blood glucose. Relevant Orders CBC, EDIF, PLATELET CHEM 7 (LYTES,BUN,CREA,GLUC) HEMOGLOBIN A1C Benign hypertension: patient blood pressure elevated. I would recommend the patient to be started on losartan 50 MG by mouth daily with breakfast. I would recommend the patient to stop using potassium therapy at this time. Relevant Medications Losartan 50 MG tablet Epileptic drop attack ; Patient has not had any recent epileptic drop attacks. Continue follow-up with neurology services. Continue current medications Elevated erythrocyte sedimentation rate He does have mildly elevated sedimentation rate. CRP normal. We will follow Sedimentation rate in 3 months Relevant Orders SEDIMENTATION RATE, AUTOMATED The documentation within this encounter was likely aided with DFine, an electronic spanisher device. Please excuse any errors or omissions that may not have been recognized at the time of this encounter. Discontinued Medications: Medications Discontinued During This Encounter Medication Reason potassium citrate 10 MEQ (1080 MG) Tab CR Therapy completed Requested Prescriptions Signed Prescriptions Disp Refills Losartan 50 MG tablet 30 tablet 3 Sig: Take 1 tablet by mouth daily with breakfast. There are no Patient Instructions on file for this visit. documented in this encounter [facility] 12-08-2022 History of Present illness Narrative Subjective Chief Complaint Patient presents with Right Hand - Pain, New Patient Review of Systems Constitutional: Negative for chills, fatigue and fever. Eyes: Negative for visual disturbance. Respiratory: Negative for shortness of breath. Cardiovascular: Negative for chest pain. Gastrointestinal: Negative for abdominal pain and blood in stool. Endocrine: Negative for polydipsia. Genitourinary: Negative for hematuria. Musculoskeletal: Positive for arthralgias. Negative for myalgias. Neurological: Positive for seizures. Hematological: Does not bruise/bleed easily. Psychiatric/Behavioral: Negative for dysphoric mood. 12/08/22 Chief Complaint: Chief Complaint Patient presents with Right Hand - Pain, New Patient HPI: Danette is a 56-year-old white male presents to the office today chief complaint of pain in his right thumb since November 07. He does have seizures and has had falls. He does think that he injured the thumb going down some steps. Nevertheless at this point he is having pain at the MP joint. He has stiffness. He has been in a splint from the ER but he says that makes it worse. He is right-hand dominant. 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 vns stimulator implanted Renal disease kidney stones Seizures Past Surgical History: Past Surgical History: Procedure Laterality Date CYSTOURETHROSCOPY W/ URETEROSCOPY/PYELOSCOPY W/ LITHOTRIPSY Bilateral 04/23/2021 Laterality: Bilateral; Surgeon: Joseph Singh MD; Location: [facility] CYSTOURETHROSCOPY W/ URETEROSCOPY/PYELOSCOPY W/ LITHOTRIPSY INCL STENT INSERTION Bilateral 04/09/2021 Laterality: Bilateral; Surgeon: Joseph Singh MD; Location: [facility] OR INSERTION NEUROSTIMULATOR ELECTRODE & GENERATOR CRANIAL NERVE (EG VAGUS) OPEN N/A 03/03/2018 Laterality: N/A; Surgeon: Riley Rubi DO; Location: [facility] MAIN OR ANALYSIS/PROGRAMMING NEUROSTIMULATOR GENERATOR SYSTEM N/A 03/03/2018 Laterality: N/A; Surgeon: Riley Rubi DO; Location: [facility] MAIN OR COLONOSCOPY DIAGNOSTIC 2017 EYE SURGERY ROS: Subjective Chief Complaint Patient presents with Right Hand - Pain, New Patient Review of Systems Constitutional: Negative for chills, fatigue and fever. Eyes: Negative for visual disturbance. Respiratory: Negative for shortness of breath. Cardiovascular: Negative for chest pain. Gastrointestinal: Negative for abdominal pain and blood in stool. Endocrine: Negative for polydipsia. Genitourinary: Negative for hematuria. Musculoskeletal: Positive for arthralgias. Negative for myalgias. Neurological: Positive for seizures. Hematological: Does not bruise/bleed easily. Psychiatric/Behavioral: Negative for dysphoric mood. Physical Exam: Vitals: 12/08/22 1342 Temp: 97.3 degrees F (36.3 degrees C) TempSrc: Temporal Weight: 80.3 kg (177 lb) Height: 1.753 m (5' 9 ) Awake, alert, and oriented x3 Extremity: on exam today of his right thumb he has tenderness primarily over the MP joint itself. No tenderness over the radial collateral ulnar collateral ligaments. No pain with stressing them. He has more pain with volar and dorsal stressing. He has independent flexion and extension of the IP joint. There is no tenderness over the basal joint. He is able make a composite fist. He is neurovascularly intact. Diagnostic Studies: radiographs of his thumb previously done at the ER demonstrates no evidence of fracture, dislocation, or other bony abnormality. Assessment: right thumb MP joint sprain Plan: this point we will get him a teepee splints to see if that is more comfortable for him. He can really use that as needed for activities. He may begin progressing his activity as tolerated. We will see him back in 2 months to make sure he continues to progress. Please note this dictation was done by myself, however the patient was discussed with and seen by Dr. Dietz who agrees with the above stated. documented in this encounter [facility] 11-17-2022 History of Present illness Narrative DAILY PROGRESS NOTE Admit Date: (Not on file) Date of Evaluation: 31:50 PM [facility] @JULIET@ IMPRESSION AND PLAN: 55 y/o male with history of seizure and epilepsy is here for CKD care. 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 Will get renal panel. 2) Kidney stone PTH 15.9 Litholink disclosed high urine pH and low citrate. Refill potassium citrate. Refill Hydrochlorothiazide. 3) HTN: SBP 130s Continue Hydrochlorothiazide. 4) Chronic normocytic anemia H and H 12.9 -> 14.1 -> 13.5 and 38.9 -> 41.6 -> 40.7 Last colonoscopy was 2019 Recommend high iron food. Will get CBC 5) Hypokalemia: K+ 3.2 Continue with potassium supplement. Will repeat potassium level. SUBJECTIVE: Patient seen and examined. Chart, medications, labs reviewed. Appointment on 11/15/2022 Component Date Value Ref Range Status MAGNESIUM 11/15/2022 1.9 1.6 - 2.3 MG/DL Final WBC (WHITE BLOOD COUNT) 11/15/2022 8.0 3.6 - 11.0 10*3/uL Final RBC 11/15/2022 4.13 4.0 - 6.1 10*6/uL Final HEMOGLOBIN (HGB) 11/15/2022 13.5 (L) 14.0 - 18.0 G/DL Final HEMATOCRIT (HCT) 11/15/2022 40.7 (L) 42.0 - 52.0 % Final MEAN CELL VOLUME 11/15/2022 98.5 80.0 - 100.0 FL Final Mean Cell HGB 11/15/2022 32.6 26.0 - 35.0 PG Final MEAN CELL HGB CONCENTRATION 11/15/2022 33.1 27.0 - 37.0 G/DL Final RBC DISTRIBUTION 11/15/2022 14.7 (H) 11.5 - 14.5 % Final PLATELET COUNT 11/15/2022 356 130 - 400 10*3/uL Final MEAN PLATELET VOLUME 11/15/2022 7.7 7.4 - 11.0 FL Final DIFFERENTIAL TYPE 11/15/2022 AUTO DIFF % Final NEUTROPHILS 11/15/2022 48.0 37.0 - 75.0 % Final LYMPHOCYTE 11/15/2022 41.4 20.0 - 55.0 % Final MONOCYTE % 11/15/2022 8.2 0.0 - 10.0 % Final EOSINOPHIL % 11/15/2022 1.9 0.0 - 11.0 % Final BASOPHIL % 11/15/2022 0.5 0.0 - 2.0 % Final Absolute Neutrophil Count 11/15/2022 3.8 1.4 - 6.5 10*3/uL Final LYMPHOCYTES, ABSOLUTE 11/15/2022 3.3 1.2 - 3.4 10*3/uL Final MONOCYTES, ABSOLUTE 11/15/2022 0.7 0.0 - 0.7 10*3/uL Final ABSOLUTE EOSINOPHIL COUNT 11/15/2022 0.2 0.0 - 0.7 10*3/uL Final ABSOLUTE BASOPHIL COUNT 11/15/2022 0.0 0.0 - 0.2 10*3/uL Final Glucose 11/15/2022 104 (H) 70 - 100 MG/DL Final Comment: NORMAL <100 mg/dL PREDIABETES 101-126 mg/dL DIABETES 126 mg/dL or higher BUN 11/15/2022 21 (H) 7 - 20 MG/DL Final CREATININE SERUM 11/15/2022 1.03 0.66 - 1.25 MG/DL Final SODIUM 11/15/2022 139 136 - 145 MMOL/L Final POTASSIUM 11/15/2022 3.2 (L) 3.5 - 5.1 MMOL/L Final CHLORIDE 11/15/2022 110 (H) 98 - 107 MMOL/L Final CARBON DIOXIDE (CO2) 11/15/2022 23 22 - 30 MMOL/L Final Albumin 11/15/2022 3.8 3.5 - 5.0 G/dl Final CALCIUM 11/15/2022 8.9 8.4 - 10.2 MG/DL Final PHOSPHORUS 11/15/2022 2.6 2.5 - 4.5 MG/DL Final ESTIMATED GFR, NON AMER 11/15/2022 79 ml/min/1.73sq.m Final ESTIMATED GFR, 11/15/2022 96 ml/min/1.73sq.m Final GFR COMMENT 11/15/2022 Average GFR for 50-59 years old = 93. Final Comment: Chronic Kidney disease, GFR = <60. Kidney failure, GFR = <15. The GFR estimate is not adjusted for extreme body surface area or acute process, nor has it been validated for women or ethnic groups other than and . LABS Labs-ABGs @ABGROUNDS@ Labs-CBC @[email or web address]@ Labs-Chem 7([facility]) @[facility]@ Labs-Coags WBC (WHITE BLOOD COUNT) Date Value Ref Range Status 11/15/2022 8.0 3.6 - 11.0 10*3/uL Final 06/02/2022 8.3 3.6 - 11.0 10*3/uL Final 10/28/2021 8.5 3.6 - 11.0 10*3/uL Final HEMOGLOBIN (HGB) Date Value Ref Range Status 11/15/2022 13.5 (L) 14.0 - 18.0 G/DL Final 06/02/2022 12.7 (L) 14.0 - 18.0 G/DL Final 10/28/2021 12.9 (L) 14.0 - 18.0 G/DL Final HEMATOCRIT (HCT) Date Value Ref Range Status 11/15/2022 40.7 (L) 42.0 - 52.0 % Final 06/02/2022 37.8 (L) 42.0 - 52.0 % Final 10/28/2021 38.9 (L) 42.0 - 52.0 % Final PLATELET COUNT Date Value Ref Range Status 11/15/2022 356 130 - 400 10*3/uL Final 06/02/2022 334 130.0 - 400.0 10*3/uL Final 10/28/2021 355 130.0 - 400.0 10*3/uL Final SODIUM Date Value Ref Range Status 11/15/2022 139 136 - 145 MMOL/L Final 06/02/2022 143 136 - 145 MMOL/L Final 10/28/2021 136 136 - 145 MMOL/L Final CHLORIDE Date Value Ref Range Status 11/15/2022 110 (H) 98 - 107 MMOL/L Final 06/02/2022 111 (H) 98 - 107 MMOL/L Final 10/28/2021 105 98 - 107 MMOL/L Final BUN Date Value Ref Range Status 11/15/2022 21 (H) 7 - 20 MG/DL Final 06/02/2022 15 7 - 20 MG/DL Final 10/28/2021 19 7 - 20 MG/DL Final POTASSIUM Date Value Ref Range Status 11/15/2022 3.2 (L) 3.5 - 5.1 MMOL/L Final 06/02/2022 3.6 3.5 - 5.1 MMOL/L Final 10/28/2021 3.7 3.5 - 5.1 MMOL/L Final CREATININE SERUM Date Value Ref Range Status 11/15/2022 1.03 0.66 - 1.25 MG/DL Final 06/02/2022 1.00 0.66 - 1.25 MG/DL Final 10/28/2021 0.96 0.66 - 1.25 MG/DL Final POCT GLUCOSE, URINE Date Value Ref Range Status 01/06/2022 neg mg/dL Final Glucose Date Value Ref Range Status 11/15/2022 104 (H) 70 - 100 MG/DL Final Comment: NORMAL <100 mg/dL PREDIABETES 101-126 mg/dL DIABETES 126 mg/dL or higher 06/02/2022 105 (H) 70 - 100 MG/DL Final Comment: NORMAL <100 mg/dL PREDIABETES 101-126 mg/dL DIABETES 126 mg/dL or higher PT Date Value Ref Range Status 02/20/2018 12.6 11.9 - 14.2 sec Final PROTEIN, TOTAL Date Value Ref Range Status 06/02/2022 6.8 6.3 - 8.2 GM/DL Final 03/09/2021 7.2 6.3 - 8.2 GM/DL Final 01/30/2018 7.7 6.3 - 8.2 GM/DL Final Albumin Date Value Ref Range Status 11/15/2022 3.8 3.5 - 5.0 G/dl Final 06/02/2022 3.5 3.5 - 5.0 G/dl Final 10/28/2021 3.7 3.5 - 5.0 G/dl Final AST Date Value Ref Range Status 06/02/2022 17 15 - 41 IU/L Final 03/09/2021 12 (L) 15 - 41 IU/L Final 01/30/2018 14 (L) 15 - 41 IU/L Final ALT Date Value Ref Range Status 06/02/2022 21 17 - 63 IU/L Final 03/09/2021 17 17 - 63 IU/L Final 01/30/2018 16 (L) 17 - 63 IU/L Final BILIRUBIN, TOTAL Date Value Ref Range Status 06/02/2022 0.4 0.2 - 1.2 MG/DL Final CALCIUM Date Value Ref Range Status 11/15/2022 8.9 8.4 - 10.2 MG/DL Final 06/02/2022 9.1 8.4 - 10.2 MG/DL Final 10/28/2021 8.7 8.4 - 10.2 MG/DL Final PHOSPHORUS Date Value Ref Range Status 11/15/2022 2.6 2.5 - 4.5 MG/DL Final 10/28/2021 3.5 2.5 - 4.5 MG/DL Final 06/05/2021 2.9 2.5 - 4.5 MG/DL Final MAGNESIUM Date Value Ref Range Status 11/15/2022 1.9 1.6 - 2.3 MG/DL Final 10/28/2021 1.9 1.6 - 2.3 MG/DL Final 03/09/2021 1.9 1.6 - 2.3 MG/DL Final Lab Results Component Value Date CREATURINE 27.0 10/28/2021 CREATSERUM 1.03 11/15/2022 BUN 21 (H) 11/15/2022 SODIUM 139 11/15/2022 POTASSIUM 3.2 (L) 11/15/2022 CHLORIDE 110 (H) 11/15/2022 CO2 23 11/15/2022 ROS: Constitution: No fever, no chill HEENT: No headache, no sinus issues CV: No chest pain, no palpitation Lung: No cough, No SOB Abd: No diarrhea, no constipation Neuro: No seizure, no loss of consciousness Heme: No bleeding, no bruise PHYSICAL EXAM: Wt Readings from Last 3 Encounters: 11/17/22 80.7 kg (178 lb) 11/15/22 79.7 kg (175 lb 11.3 oz) 09/27/22 83.2 kg (183 lb 6.4 oz) Temp Readings from Last 3 Encounters: 11/15/22 97.6 F (36.4 C) (Oral) 10/23/22 98.2 F (36.8 C) (Oral) 10/15/22 98.4 F (36.9 C) (Oral) BP Readings from Last 3 Encounters: 11/17/22 115/62 11/15/22 114/70 10/23/22 126/70 Pulse Readings from Last 3 Encounters: 11/17/22 64 11/15/22 69 10/23/22 81 Gen: NAD, lying in bed, conversant HEENT: Atraumatic, PERRLA, moist membrane CV: RRR, nl S1 and S2, no m/g/r Lung: CTAB, no wheezing, no crackle Abd: +BS, nontender, no distended Ext: No rash, no clubbing, no cyanosis. No edema. Neuro: CNII-XII grossly intact, 5/5 strength, normal tone Skin: Warm and dry documented in this encounter [facility] documented in this encounter [facility]03-27-[facility]23 Physician Emergency department Note* Liset Kincaid, [employer] SALES REPRESENTATIVE - 11/15/2022 1:46 PM EDT Images from the original note were not included. Emergency Department Report [facility] EMER[facility] Service Date:.11/15/22 PCP: Inder Banda Chief Complaint: Chief Complaint Patient presents with Finger Injury HPI Danette Moore is a 56 y.o. male presents to the ED today due to Right thumb pain. Patient states that a few days ago he fell while going up the steps landing on his right thumb. He has had swelling and increased pain to the thumb. Patient was seen at a walk-in clinic and was wrapped with an Graham wrap but no x- rays were obtained. He has decreased range of motion due to discomfort. He has been taking [id number]-[id number] medication with some relief. He denies head injury or loss of consciousness Review of Systems: Review of Systems Constitutional: Negative. HENT: Negative. Eyes: Negative. Respiratory: Negative. Cardiovascular: Negative. Gastrointestinal: Negative. Musculoskeletal: Positive for arthralgias. Skin: Negative. Neurological: Negative. Psychiatric/Behavioral: Negative. 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 vns stimulator implanted Renal disease kidney stones Seizures Past Surgical History: Past Surgical History: Procedure Laterality Date CYSTOURETHROSCOPY W/ URETEROSCOPY/PYELOSCOPY W/ LITHOTRIPSY Bilateral 04/23/2021 Laterality: Bilateral; Surgeon: Joseph Singh MD; Location: [facility] OR CYSTOURETHROSCOPY W/ URETEROSCOPY/PYELOSCOPY W/ LITHOTRIPSY INCL STENT INSERTION Bilateral 04/09/2021 Laterality: Bilateral; Surgeon: Joseph Singh MD; Location: [facility] OR INSERTION NEUROSTIMULATOR ELECTRODE & GENERATOR CRANIAL NERVE (EG VAGUS) OPEN N/A 03/03/2018 Laterality: N/A; Surgeon: Riley Rubi DO; Location: [facility] MAIN OR ANALYSIS/PROGRAMMING NEUROSTIMULATOR GENERATOR SYSTEM N/A 03/03/2018 Laterality: N/A; Surgeon: Riley Rubi DO; Location: [facility] MAIN OR COLONOSCOPY DIAGNOSTIC 2017 EYE SURGERY Allergies: No Known Allergies Medications: Patient's Medications New Prescriptions No medications on file Previous Medications CALCIUM PO take 1 Tab by mouth 0900 every other day. CHOLECALCIFEROL (VITAMIN D3) 50 MCG (2000 UT) TABLET Take 1 tablet by mouth every Tuesday, Tuesdayand Tuesday. CLOBAZAM 10 MG TABLET 2.5 tablets 2 times daily. HYDROCHLOROTHIAZIDE 12.5 MG CAPSULE Take 1 capsule by mouth daily. HYDROCHLOROTHIAZIDE 12.5 MG CAPSULE Take 1 capsule by mouth daily. LAMOTRIGINE 100 MG TABLET Take 0.5 tablets by mouth 2 times daily. LAMOTRIGINE 200 MG TABLET Take 0.5 tablets by mouth 2 times daily. 1 bid Please use the same manufacture. LORAZEPAM 1 MG TAB take 1 tablet by mouth every 6 hours as needed for Seizures (one pill if drop attack two days in a row).. OMEGA-3 FATTY ACIDS 1000 MG CAPSULE Take 1 capsule by mouth 2 times daily. ONDANSETRON 4 MG TAB DISPERSIBLE TABLET Take 1 tablet by mouth every [address] on tongue POTASSIUM CITRATE 10 MEQ (1080 MG) TAB CR Take 1 tablet by mouth 3 times daily. PRAVASTATIN 40 MG TABLET Take 1 tablet by mouth every evening at 6 PM. TOPIRAMATE 200 MG TABLET 1 tablet 2 times daily. Modified Medications No medications on file Discontinued Medications No medications on file Family History: Family History Problem Relation Age of Onset Cancer Father testes Kidney Disease Father Heart Disease - Other Father Social History: Social History Socioeconomic History Marital status: Single Spouse name: Not on file Number of children: Not on file Years of education: Not on file Highest education level: Not on file Occupational History Not on file Tobacco Use Smoking status: Every Day Packs/day: 0.25 Types: Cigarettes Smokeless tobacco: Never Substance and Sexual Activity Alcohol use: No Drug use: No Sexual activity: Not on file Other Topics Concern Not on file Social History Narrative Not on file Social Determinants of Health Financial Resource Strain: Not on file Food Insecurity: Not on file Transportation Needs: Not on file Physical Activity: Not on file Stress: Not on file Social Connections: Not on file Intimate Partner Violence: Not on file Housing Stability: Not on file Physical Exam: Physical Exam Vitals and nursing note reviewed. Constitutional: Appearance: Normal appearance. He is not ill-appearing. HENT: Head: Normocephalic. Right Ear: External ear normal. Left Ear: External ear normal. Nose: Nose normal. Eyes: Pupils: Pupils are equal, round, and reactive to light. Cardiovascular: Rate and Rhythm: Normal rate. Pulmonary: Effort: Pulmonary effort is normal. Abdominal: General: There is no distension. Musculoskeletal: Right hand: Swelling and tenderness present. No deformity, lacerations or bony tenderness. Decreased range of motion. Normal strength. Normal sensation. There is no disruption of two-point discrimination. Normal capillary refill. Normal pulse. Hands: Cervical back: Normal range of motion. Skin: General: Skin is warm and dry. Capillary Refill: Capillary refill takes less than 2 seconds. Neurological: General: No focal deficit present. Mental Status: He is alert. Psychiatric: Behavior: Behavior normal. Vital Signs During ED Visit Patient Vitals for the past 24 hrs: BP Temp Temp src Pulse Resp SpO2 Height Weight 11/15/22 1430 114/70 -- -- 69 16 98 % -- -- 11/15/22 1314 -- -- -- -- -- -- 1.753 m (5' 9 ) 79.7 kg (175 lb 11.3 oz) 11/15/22 1313 147/73 97.6 F (36.4 C) Oral 75 16 98 % -- -- Orders/Results: Orders Placed This Encounter XR HAND RIGHT 3+ VIEWS AMB REFERRAL TO INTERNAL MEDICINE Results for orders placed or performed in visit on 11/15/22 CBC, EDIF, PLATELET Result Value Ref Range WBC (WHITE BLOOD COUNT) 8.0 3.6 - 11.0 10*3/uL RBC 4.13 4.0 - 6.1 10*6/uL HEMOGLOBIN (HGB) 13.5 (L) 14.0 - 18.0 G/DL HEMATOCRIT (HCT) 40.7 (L) 42.0 - 52.0 % MEAN CELL VOLUME 98.5 80.0 - 100.0 FL Mean Cell HGB 32.6 26.0 - 35.0 PG MEAN CELL HGB CONCENTRATION 33.1 27.0 - 37.0 G/DL RBC DISTRIBUTION 14.7 (H) 11.5 - 14.5 % PLATELET COUNT 356 130 - 400 10*3/uL MEAN PLATELET VOLUME 7.7 7.4 - 11.0 FL DIFFERENTIAL TYPE AUTO DIFF % NEUTROPHILS 48.0 37.0 - 75.0 % LYMPHOCYTE 41.4 20.0 - 55.0 % MONOCYTE % 8.2 0.0 - 10.0 % EOSINOPHIL % 1.9 0.0 - 11.0 % BASOPHIL % 0.5 0.0 - 2.0 % Absolute Neutrophil Count 3.8 1.4 - 6.5 10*3/uL LYMPHOCYTES, ABSOLUTE 3.3 1.2 - 3.4 10*3/uL MONOCYTES, ABSOLUTE 0.7 0.0 - 0.7 10*3/uL ABSOLUTE EOSINOPHIL COUNT 0.2 0.0 - 0.7 10*3/uL ABSOLUTE BASOPHIL COUNT 0.0 0.0 - 0.2 10*3/uL Radiographic Imaging XR HAND RIGHT 3+ VIEWS Final Result IMPRESSION: Right hand study fails to demonstrate definite acute fracture or dislocation. Follow-up as needed. Procedures: Procedures Moderate Sedation Procedure: No ED Summary/MDM patient presents to the ER with right thumb pain. He does have some mild swelling to the area. X-ray does not show any acute findings. Thumb spica applied. Recommend cool compresses and elevation. May take [id number] Tylenol and ibuprofen. Follow-up as needed. Patient agrees and he is discharged home stable Clinical Impression: 1. Sprain of right thumb, unspecified site of digit, initial encounter No follow-ups on file. New Prescriptions No medications on file Discontinued Medications No medications on file An After Visit Summary was printed and given to the patient with above information. . . TATA Cartwright 11/15/22 1502 [facility] Work Phone: [phone] 610-788703-27-2023 Emergency department Note* TATA Cartwright - 11/15/2022 1:46 PM EDT Images from the original note were not included. Emergency Department Report [facility] EM[facility] Service Date:.11/15/22 PCP: Inder Banda Chief Complaint: Chief Complaint Patient presents with Finger Injury HPI Danette Moore is a 56 y.o. male presents to the ED today due to Right thumb pain. Patient states that a few days ago he fell while going up the steps landing on his right thumb. He has had swelling and increased pain to the thumb. Patient was seen at a walk-in clinic and was wrapped with an Graham wrap but no x- rays were obtained. He has decreased range of motion due to discomfort. He has been taking [id number] medication with some relief. He denies head injury or loss of consciousness Review of Systems: Review of Systems Constitutional: Negative. HENT: Negative. Eyes: Negative. Respiratory: Negative. Cardiovascular: Negative. Gastrointestinal: Negative. Musculoskeletal: Positive for arthralgias. Skin: Negative. Neurological: Negative. Psychiatric/Behavioral: Negative. 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 vns stimulator implanted Renal disease kidney stones Seizures Past Surgical History: Past Surgical History: Procedure Laterality Date CYSTOURETHROSCOPY W/ URETEROSCOPY/PYELOSCOPY W/ LITHOTRIPSY Bilateral 04/23/2021 Laterality: Bilateral; Surgeon: Joseph Singh MD; Location: [facility] OR CYSTOURETHROSCOPY W/ URETEROSCOPY/PYELOSCOPY W/ LITHOTRIPSY INCL STENT INSERTION Bilateral 04/09/2021 Laterality: Bilateral; Surgeon: Jsoeph Singh MD; Location: [facility] OR INSERTION NEUROSTIMULATOR ELECTRODE & GENERATOR CRANIAL NERVE (EG VAGUS) OPEN N/A 03/03/2018 Laterality: N/A; Surgeon: Riley Rubi DO; Location: [facility] MAIN OR ANALYSIS/PROGRAMMING NEUROSTIMULATOR GENERATOR SYSTEM N/A 03/03/2018 Laterality: N/A; Surgeon: Riley Rubi DO; Location: [facility] MAIN OR COLONOSCOPY DIAGNOSTIC 2017 EYE SURGERY Allergies: No Known Allergies Medications: Patient's Medications New Prescriptions No medications on file Previous Medications CALCIUM PO take 1 Tab by mouth 0900 every other day. CHOLECALCIFEROL (VITAMIN D3) 50 MCG (2000 UT) TABLET Take 1 tablet by mouth every Tuesday, Tuesdayand Tuesday. CLOBAZAM 10 MG TABLET 2.5 tablets 2 times daily. HYDROCHLOROTHIAZIDE 12.5 MG CAPSULE Take 1 capsule by mouth daily. HYDROCHLOROTHIAZIDE 12.5 MG CAPSULE Take 1 capsule by mouth daily. LAMOTRIGINE 100 MG TABLET Take 0.5 tablets by mouth 2 times daily. LAMOTRIGINE 200 MG TABLET Take 0.5 tablets by mouth 2 times daily. 1 bid Please use the same manufacture. LORAZEPAM 1 MG TAB take 1 tablet by mouth every 6 hours as needed for Seizures (one pill if drop attack two days in a row).. OMEGA-3 FATTY ACIDS 1000 MG CAPSULE Take 1 capsule by mouth 2 times daily. ONDANSETRON 4 MG TAB DISPERSIBLE TABLET Take 1 tablet by mouth every [address] on tongue POTASSIUM CITRATE 10 MEQ (1080 MG) TAB CR Take 1 tablet by mouth 3 times daily. PRAVASTATIN 40 MG TABLET Take 1 tablet by mouth every evening at 6 PM. TOPIRAMATE 200 MG TABLET 1 tablet 2 times daily. Modified Medications No medications on file Discontinued Medications No medications on file Family History: Family History Problem Relation Age of Onset Cancer Father testes Kidney Disease Father Heart Disease - Other Father Social History: Social History Socioeconomic History Marital status: Single Spouse name: Not on file Number of children: Not on file Years of education: Not on file Highest education level: Not on file Occupational History Not on file Tobacco Use Smoking status: Every Day Packs/day: 0.25 Types: Cigarettes Smokeless tobacco: Never Substance and Sexual Activity Alcohol use: No Drug use: No Sexual activity: Not on file Other Topics Concern Not on file Social History Narrative Not on file Social Determinants of Health Financial Resource Strain: Not on file Food Insecurity: Not on file Transportation Needs: Not on file Physical Activity: Not on file Stress: Not on file Social Connections: Not on file Intimate Partner Violence: Not on file Housing Stability: Not on file Physical Exam: Physical Exam Vitals and nursing note reviewed. Constitutional: Appearance: Normal appearance. He is not ill-appearing. HENT: Head: Normocephalic. Right Ear: External ear normal. Left Ear: External ear normal. Nose: Nose normal. Eyes: Pupils: Pupils are equal, round, and reactive to light. Cardiovascular: Rate and Rhythm: Normal rate. Pulmonary: Effort: Pulmonary effort is normal. Abdominal: General: There is no distension. Musculoskeletal: Right hand: Swelling and tenderness present. No deformity, lacerations or bony tenderness. Decreased range of motion. Normal strength. Normal sensation. There is no disruption of two-point discrimination. Normal capillary refill. Normal pulse. Hands: Cervical back: Normal range of motion. Skin: General: Skin is warm and dry. Capillary Refill: Capillary refill takes less than 2 seconds. Neurological: General: No focal deficit present. Mental Status: He is alert. Psychiatric: Behavior: Behavior normal. Vital Signs During ED Visit Patient Vitals for the past 24 hrs: BP Temp Temp src Pulse Resp SpO2 Height Weight 11/15/22 1430 114/70 -- -- 69 16 98 % -- -- 11/15/22 1314 -- -- -- -- -- -- 1.753 m (5' 9 ) 79.7 kg (175 lb 11.3 oz) 11/15/22 1313 147/73 97.6 F (36.4 C) Oral 75 16 98 % -- -- Orders/Results: Orders Placed This Encounter XR HAND RIGHT 3+ VIEWS AMB REFERRAL TO INTERNAL MEDICINE Results for orders placed or performed in visit on 11/15/22 CBC, EDIF, PLATELET Result Value Ref Range WBC (WHITE BLOOD COUNT) 8.0 3.6 - 11.0 10*3/uL RBC 4.13 4.0 - 6.1 10*6/uL HEMOGLOBIN (HGB) 13.5 (L) 14.0 - 18.0 G/DL HEMATOCRIT (HCT) 40.7 (L) 42.0 - 52.0 % MEAN CELL VOLUME 98.5 80.0 - 100.0 FL Mean Cell HGB 32.6 26.0 - 35.0 PG MEAN CELL HGB CONCENTRATION 33.1 27.0 - 37.0 G/DL RBC DISTRIBUTION 14.7 (H) 11.5 - 14.5 % PLATELET COUNT 356 130 - 400 10*3/uL MEAN PLATELET VOLUME 7.7 7.4 - 11.0 FL DIFFERENTIAL TYPE AUTO DIFF % NEUTROPHILS 48.0 37.0 - 75.0 % LYMPHOCYTE 41.4 20.0 - 55.0 % MONOCYTE % 8.2 0.0 - 10.0 % EOSINOPHIL % 1.9 0.0 - 11.0 % BASOPHIL % 0.5 0.0 - 2.0 % Absolute Neutrophil Count 3.8 1.4 - 6.5 10*3/uL LYMPHOCYTES, ABSOLUTE 3.3 1.2 - 3.4 10*3/uL MONOCYTES, ABSOLUTE 0.7 0.0 - 0.7 10*3/uL ABSOLUTE EOSINOPHIL COUNT 0.2 0.0 - 0.7 10*3/uL ABSOLUTE BASOPHIL COUNT 0.0 0.0 - 0.2 10*3/uL Radiographic Imaging XR HAND RIGHT 3+ VIEWS Final Result IMPRESSION: Right hand study fails to demonstrate definite acute fracture or dislocation. Follow-up as needed. Procedures: Procedures Moderate Sedation Procedure: No ED Summary/MDM patient presents to the ER with right thumb pain. He does have some mild swelling to the area. X-ray does not show any acute findings. Thumb spica applied. Recommend cool compresses and elevation. May take [id number] Tylenol and ibuprofen. Follow-up as needed. Patient agrees and he is discharged home stable Clinical Impression: 1. Sprain of right thumb, unspecified site of digit, initial encounter No follow-ups on file. New Prescriptions No medications on file Discontinued Medications No medications on file An After Visit Summary was printed and given to the patient with above information. . . Liset Kincaid, [employer] SALES REPRESENTATIVE 11/15/22 1502 * Danisha Zavala RN - 11/15/2022 1:15 PM EDT Patient arrives from home with complaint of right thumb injury 1 week ago. [facility]* Danisha Zavala RN - 11/15/2022 1:15 PM EDT Patient arrives from home with complaint of right thumb injury 1 week ago. [facility]03-04-2023 Physician Emergency department Note* Naresh Hylton MD - 10/23/2022 12:03 PM EST DEPARTMENT OF EMERGENCY MEDICINE CHIEF COMPLAINT Staple Removal (Here to have desirae removed from top of head placed last week ) HPI Danette Moore is a 56 y.o. male who presents for removal of desirae. Patient suffered a lacerationto his scalp 8 days ago. He was instructed to follow-up in about 1 week for removal of the desirae.No other complaints. REVIEW OF SYSTEMS Review of Systems See history of present illness. PAST MEDICAL HISTORY Past Medical History: Diagnosis Date At risk for falls history drop down seizures Epilepsy with intractable epilepsy drop down seizures has vns stimulator implanted Renal disease kidney stones Seizures SURGICAL HISTORY Past Surgical History: Procedure Laterality Date CYSTOURETHROSCOPY W/ URETEROSCOPY/PYELOSCOPY W/ LITHOTRIPSY Bilateral 04/23/2021 Laterality: Bilateral; Surgeon: Joseph Singh MD; Location: [facility] OR CYSTOURETHROSCOPY W/ URETEROSCOPY/PYELOSCOPY W/ LITHOTRIPSY INCL STENT INSERTION Bilateral 04/09/2021 Laterality: Bilateral; Surgeon: Joseph Singh MD; Location: [facility] OR INSERTION NEUROSTIMULATOR ELECTRODE & GENERATOR CRANIAL NERVE (EG VAGUS) OPEN N/A 03/03/2018 Laterality: N/A; Surgeon: Riley Rubi DO; Location: [facility] MAIN OR ANALYSIS/PROGRAMMING NEUROSTIMULATOR GENERATOR SYSTEM N/A 03/03/2018 Laterality: N/A; Surgeon: Riley Rubi DO; Location[facility] MA[facility] OR COLONOSCOPY DIAGNOSTIC 2017 EYE SURGERY CURRENT MEDICATIONS No current facility-administered medications for this encounter. Current Outpatient Medications Medication Sig Dispense Refill CALCIUM PO take 1 Tab by mouth 0900 every other day. Cholecalciferol (Vitamin D3) 50 MCG (1999 UT) tablet Take 1 tablet by mouth every Tuesday, Tuesdayand Tuesday. (Patient taking differently: Take 1 tablet by mouth every Tuesday, Tuesday and Tuesday.100 mg M W F) cloBAZam 10 MG tablet 2.5 tablets 2 times daily. hydroCHLOROthiazide 12.5 MG capsule Take 1 capsule by mouth daily. 90 capsule 3 hydroCHLOROthiazide 12.5 MG capsule Take 1 capsule by mouth daily. lamoTRIgine 100 MG tablet Take 0.5 tablets by mouth 2 times daily. lamoTRIgine 200 MG tablet Take 0.5 tablets by mouth 2 times daily. 1 bid Please use the same manufacture. 180 tablet 1 LORazepam 1 MG Tab take 1 tablet by mouth every 6 hours as needed for Seizures (one pill if drop attack two days in a row).. 10 tablet 0 [place]-3 Fatty Acids 1000 MG capsule Take 1 capsule by mouth 2 times daily. ondansetron 4 MG Tab Dispersible tablet Take 1 tablet by mouth every [address] on tongue (Patient taking differently: Take 1 tablet by mouth as needed. Place on tongue) 15 tablet 0 potassium citrate 10 MEQ (1080 MG) Tab CR Take 1 tablet by mouth 3 times daily. 270 tablet 3 Pravastatin 40 MG tablet Take 1 tablet by mouth every evening at 6 PM. 90 tablet 1 topiramate 200 MG tablet 1 tablet 2 times daily. ALLERGIES No Known Allergies FAMILY HISTORY Family History Problem Relation Age of Onset Cancer Father testes Kidney Disease Father Heart Disease - Other Father SOCIAL HISTORY Social History Socioeconomic History Marital status: Single Spouse name: Not on file Number of children: Not on file Years of education: Not on file Highest education level: Not on file Occupational History Not on file Tobacco Use Smoking status: Every Day Packs/day: 0.25 Types: Cigarettes Smokeless tobacco: Never Substance and Sexual Activity Alcohol use: No Drug use: No Sexual activity: Not on file Other Topics Concern Not on file Social History Narrative Not on file Social Determinants of Health Financial Resource Strain: Not on file Food Insecurity: Not on file Transportation Needs: Not on file Physical Activity: Not on file Stress: Not on file Social Connections: Not on file Intimate Partner Violence: Not on file Housing Stability: Not on file PHYSICAL EXAM BP 126/70 Pulse 81 Temp 98.2 F (36.8 C) (Oral) Resp 16 SpO2 96% Smoking Status Every Day Physical Exam The patient is well-developed, well-nourished, and in no acute distress. Head exam shows a well-healed laceration with 6 desirae near the vertex of his scalp. Pupils are equal and reactive. Face is symmetric. Extremities are warm and well perfused and without acute deformity. Neurologically, the patient is awake, alert, and without acute deficit. Psychiatrically, the patient is calm and cooperative. ED COURSE & MEDICAL DECISION MAKING Procedure note: A staple remover was used to remove the desirae from the laceration near the vertexof the patient's scalp. 6 desirae were removed. The patient tolerated the procedure well and no immediate complications. The wound looks well approximated and well-healed. Naresh Hylton MD 10/23/22 [address] [facility] [employer] [facility] Work Phone: [phone] 327-982503-04-2023 Emergency department Note* Naresh Hylton MD - 10/23/2022 12:03 PM EST DEPARTMENT OF EMERGENCY MEDICINE CHIEF COMPLAINT Staple Removal (Here to have desirae removed from top of head placed last week ) HPI Danette Moore is a 56 y.o. male who presents for removal of desirae. Patient suffered a lacerationto his scalp 8 days ago. He was instructed to follow-up in about 1 week for removal of the desirae.No other complaints. REVIEW OF SYSTEMS Review of Systems See history of present illness. PAST MEDICAL HISTORY Past Medical History: Diagnosis Date At risk for falls history drop down seizures Epilepsy with intractable epilepsy drop down seizures has vns stimulator implanted Renal disease kidney stones Seizures SURGICAL HISTORY Past Surgical History: Procedure Laterality Date CYSTOURETHROSCOPY W/ URETEROSCOPY/PYELOSCOPY W/ LITHOTRIPSY Bilateral 04/23/2021 Laterality: Bilateral; Surgeon: Joseph Singh MD; Location: [facility] OR CYSTOURETHROSCOPY W/ URETEROSCOPY/PYELOSCOPY W/ LITHOTRIPSY INCL STENT INSERTION Bilateral 04/09/2021 Laterality: Bilateral; Surgeon: Joseph Singh MD; Location: [facility] OR INSERTION NEUROSTIMULATOR ELECTRODE & GENERATOR CRANIAL NERVE (EG VAGUS) OPEN N/A 03/03/2018 Laterality: N/A; Surgeon: Riley Rubi DO; Location: [facility] MAIN OR ANALYSIS/PROGRAMMING NEUROSTIMULATOR GENERATOR SYSTEM N/A 03/03/2018 Laterality: N/A; Surgeon: Riley Rubi DO; Location: [facility] MAIN OR COLONOSCOPY DIAGNOSTIC 2017 EYE SURGERY CURRENT MEDICATIONS No current facility-administered medications for this encounter. Current Outpatient Medications Medication Sig Dispense Refill CALCIUM PO take 1 Tab by mouth 0900 every other day. Cholecalciferol (Vitamin D3) 50 MCG (2000 UT) tablet Take 1 tablet by mouth every Tuesday, Tuesdayand Tuesday. (Patient taking differently: Take 1 tablet by mouth every Tuesday, Tuesday and Tuesday.100 mg M W ) cloBAZam 10 MG tablet 2.5 tablets 2 times daily. hydroCHLOROthiazide 12.5 MG capsule Take 1 capsule by mouth daily. 90 capsule 3 hydroCHLOROthiazide 12.5 MG capsule Take 1 capsule by mouth daily. lamoTRIgine 100 MG tablet Take 0.5 tablets by mouth 2 times daily. lamoTRIgine 200 MG tablet Take 0.5 tablets by mouth 2 times daily. 1 bid Please use the same manufacture. 180 tablet 1 LORazepam 1 MG Tab take 1 tablet by mouth every 6 hours as needed for Seizures (one pill if drop attack two days in a row).. 10 tablet 0 Marl[place]-3 Fatty Acids 1000 MG capsule Take 1 capsule by mouth 2 times daily. ondansetron 4 MG Tab Dispersible tablet Take 1 tablet by mouth every [address]. [address] on tongue (Patient taking differently: Take 1 tablet by mouth as needed. Place on tongue) 15 tablet 0 potassium citrate 10 MEQ (1080 MG) Tab CR Take 1 tablet by mouth 3 times daily. 270 tablet 3 Pravastatin 40 MG tablet Take 1 tablet by mouth every evening at 6 PM. 90 tablet 1 topiramate 200 MG tablet 1 tablet 2 times daily. ALLERGIES No Known Allergies FAMILY HISTORY Family History Problem Relation Age of Onset Cancer Father testes Kidney Disease Father Heart Disease - Other Father SOCIAL HISTORY Social History Socioeconomic History Marital status: Single Spouse name: Not on file Number of children: Not on file Years of education: Not on file Highest education level: Not on file Occupational History Not on file Tobacco Use Smoking status: Every Day Packs/day: 0.25 Types: Cigarettes Smokeless tobacco: Never Substance and Sexual Activity Alcohol use: No Drug use: No Sexual activity: Not on file Other Topics Concern Not on file Social History Narrative Not on file Social Determinants of Health Financial Resource Strain: Not on file Food Insecurity: Not on file Transportation Needs: Not on file Physical Activity: Not on file Stress: Not on file Social Connections: Not on file Intimate Partner Violence: Not on file Housing Stability: Not on file PHYSICAL EXAM BP 126/70 Pulse 81 Temp 98.2 F (36.8 C) (Oral) Resp 16 SpO2 96% Smoking Status Every Day Physical Exam The patient is well-developed, well-nourished, and in no acute distress. Head exam shows a well-healed laceration with 6 desirae near the vertex of his scalp. Pupils are equal and reactive. Face is symmetric. Extremities are warm and well perfused and without acute deformity. Neurologically, the patient is awake, alert, and without acute deficit. Psychiatrically, the patient is calm and cooperative. ED COURSE & MEDICAL DECISION MAKING Procedure note: A staple remover was used to remove the desirae from the laceration near the vertexof the patient's scalp. 6 desirae were removed. The patient tolerated the procedure well and no immediate complications. The wound looks well approximated and well-healed. Naersh Hylton MD 10/23/22 1205 [facility] Emergency department Note* Catarino Christianson MD - 10/15/2022 10:52 PM EST Patient was seen by me as well as the PA all medical decision making and course was discussed with me. 56-year-old male sustained a laceration to the back head after he fell. Patient does have a historyof epilepsy. He was not wearing his helmet at the time. They state he is acting normal. There is been no vomiting. This occurred approximately 20 minutes prior to arrival. Patient's immunizations are up-to-date. There is no facial injury dental injury. No jaw pain. He denies neck pain. Denies any weakness in the arms or legs General: Well-nourished pleasant male HENT: patient does have old scars on the back of his head no splint from previous falls. He does have a small laceration there is bleeding which is controlled. Nose without exudates. Mouth is moist. No chipped or loose teeth Eyes: pupils are equal Skin: warm, dry. Laceration noted to the scalp Abdomen: soft. No guarding or rebound Respiratory: clear. No rhonchi. No wheezing Neurologic: awake, pleasant, answering questions appropriately Lymphatic: no anterior or posterior cervical lymphadenopathy Catarino Christianson MD 10/15/22 57[address] [facility] [employer] Work Phone: [phone] 844-404902-24-2023 Emergency department Note* Catarino Christianson MD - 10/15/2022 10:52 PM EST Patient was seen by me as well as the PA all medical decision making and course was discussed with me. 56-year-old male sustained a laceration to the back head after he fell. Patient does have a historyof epilepsy. He was not wearing his helmet at the time. They state he is acting normal. There is been no vomiting. This occurred approximately 20 minutes prior to arrival. Patient's immunizations are up-to-date. There is no facial injury dental injury. No jaw pain. He denies neck pain. Denies any weakness in the arms or legs General: Well-nourished pleasant male HENT: patient does have old scars on the back of his head no splint from previous falls. He does have a small laceration there is bleeding which is controlled. Nose without exudates. Mouth is moist. No chipped or loose teeth Eyes: pupils are equal Skin: warm, dry. Laceration noted to the scalp Abdomen: soft. No guarding or rebound Respiratory: clear. No rhonchi. No wheezing Neurologic: awake, pleasant, answering questions appropriately Lymphatic: no anterior or posterior cervical lymphadenopathy Catarino Christianson MD 10/15/22 3506 documented in this [facility]02-06-2023 History of Present illness Narrative* Kimberly Haney - 09/27/2022 1:30 PM EST Nurse Note: Review of Systems Constitutional: Negative. HENT: Negative. Eyes: Negative. Respiratory: Negative. Cardiovascular: Negative. Gastrointestinal: Negative. Endocrine: Negative. Genitourinary: Negative. Musculoskeletal: Negative. Skin: Negative. Allergic/Immunologic: Negative. Neurological: Negative. Hematological: Negative. Psychiatric/Behavioral: Negative. Nursing Assessment: Pt Presents for follow up evaluate vitamin d deficiency, IFG (impaired fasting glucose). Physical Exam * Inder Banda MD - 09/27/2022 1:30 PM EST Chief Complaint: Chief Complaint Patient presents with Follow-up Evaluate vitamin d deficiency, IFG (impaired fasting glucose) History of Present Illness Danette Moore is a 56 y.o. 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 His last visit and reviewed. Hemoglobin A1c 5.8%. Lipids have been stable. His CBC within normal limits. He does have mild volume contraction. Patient's labs along with his follow-up with the neurology has been discussed. Heart: Patient denies any exertional chest pain, dyspnea, palpitations, syncope, orthopnea, edema or paroxysmal nocturnal dyspnea. Lung:The patient denies cough, chest pain, dyspnea, wheezing or hemoptysis. Abdomen: The patient denies abdominal or flank pain, anorexia, nausea or vomiting, dysphagia, change in bowel habits or black or bloody stools or weight loss. Extremities:Patient denies low back pain or painful or reduced range of motion of the back. Problems discussed today also include: problems updated.HPI comments may also be noted in 'Overview' section on the Problem List and appear at the end of this note under problem summary. 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 Reviewed today. Medications on arrival 09/27/2022 Outpatient Medications Prior to Visit Medication Sig Dispense Refill CALCIUM PO take 1 Tab by mouth 0900 every other day. Cholecalciferol (Vitamin D3) 50 MCG (1999 UT) tablet Take 1 tablet by mouth every Tuesday, Tuesdayand Tuesday. (Patient taking differently: Take 1 tablet by mouth every Tuesday, Tuesday and Tuesday.100 mg M W F) cloBAZam 10 MG tablet 2.5 tablets 2 times daily. hydroCHLOROthiazide 12.5 MG capsule Take 1 capsule by mouth daily. 90 capsule 3 hydroCHLOROthiazide 12.5 MG capsule Take 1 capsule by mouth daily. lamoTRIgine 100 MG tablet Take 0.5 tablets by mouth 2 times daily. lamoTRIgine 200 MG tablet Take 0.5 tablets by mouth 2 times daily. 1 bid Please use the same manufacture. 180 tablet 1 LORazepam 1 MG Tab take 1 tablet by mouth every 6 hours as needed for Seizures (one pill if drop attack two days in a row).. 10 tablet 0 Marl[place]-3 Fatty Acids 1000 MG capsule Take 1 capsule by mouth 2 times daily. ondansetron 4 MG Tab Dispersible tablet Take 1 tablet by mouth every [address] on tongue (Patient taking differently: Take 1 tablet by mouth as needed. Place on tongue) 15 tablet 0 potassium citrate 10 MEQ (1080 MG) Tab CR Take 1 tablet by mouth 3 times daily. 270 tablet 3 topiramate 200 MG tablet 1 tablet 2 times daily. pravastatin 40 MG tablet Take 1 tablet by mouth every evening at 6 PM. 90 tablet 1 lamoTRIgine 200 MG tablet Take 1 tablet by mouth 2 times daily. (Patient not taking: Reported on 09/27/2022) No facility-administered medications prior to visit. Nurse Note: Review of Systems Constitutional: Negative. HENT: Negative. Eyes: Negative. Respiratory: Negative. Cardiovascular: Negative. Gastrointestinal: Negative. Endocrine: Negative. Genitourinary: Negative. Musculoskeletal: Negative. Skin: Negative. Allergic/Immunologic: Negative. Neurological: Negative. Hematological: Negative. Psychiatric/Behavioral: Negative. Nursing Assessment: Pt Presents for follow up evaluate vitamin d deficiency, IFG (impaired fasting glucose). Allergies He has No Known Allergies. Family History His family history includes Cancer in his father; Heart Disease - Other in his father; Kidney Disease in his father. Social History He reports that he has been smoking cigarettes. He has been smoking an average of .25 packs per day. He has never used smokeless tobacco. He reports that he does not drink alcohol and does not use drugs. Physical Exam Blood pressure 118/81, pulse 71, temperature 97.7 F (36.5 C), temperature source Temporal, resp. rate 14, height 1.753 m (5' 9 ), weight 83.2 kg (183 lb 6.4 oz), SpO2 97 %., Body mass index is 27.08 kg/m . Constitutional: He appears Stable. Patient has been wearing a helmet Head: Normocephalic and atraumatic. Eyes: Reactive pupils, no conjunctival injection, no jaundice. Ears: Normal TMs, normal external ear and ear canal. Nose: No nasal congestion/bogginess, no sinus tenderness Mouth/Throat: Moist mucous membranes. No pharyngeal erythema Neck: Neck supple. Thyroid not enlarged. No anterior cervical LAD. Cardiovascular: No carotid bruits. Heart with regular rhythm, normal heart sounds. Pulmonary/Chest: Effort normal, breath sounds normal. Musculoskeletal: No joint deformity of hands, neck, or knees noted. Good ROM of all visible joints during exam. Gait & balance normal on observation within exam room. Psychiatric: Mood and affect normal. Judgment normal. Ordered thought content. Assessment/Plan Problem List Items Addressed This Visit Digestive Vitamin D deficiency; Patient's vitamin D has been stable. Continue current therapy. We will followvitamin D level periodically Relevant Orders VITAMIN D (25-HYDROXY,TOTAL) Other Visit Diagnoses IFG (impaired fasting glucose) - Primary; patient with an A1c 5.8%. Continue current management. Dietary changes recommended we will follow his hemoglobin A1c as well as fasting blood glucose in December 2022 Relevant Orders CBC, EDIF, PLATELET CHEM 7 (LYTES,BUN,CREA,GLUC) HEMOGLOBIN A1C Dyslipidemia ; patient to continue pravastatin therapy at this time. Dietary changes recommended tofollow lipid evaluation as well as hepatic in December 2022 Relevant Medications Pravastatin 40 MG tablet Other Relevant Orders LIPID PANEL W CALCULATED LDL HEPATIC FUNCTION PANEL Epileptic drop attack; patient has had epileptic drop attacks. He will continue lamotrigine therapyalong with topiramate . He does also have lorazepam. He will follow-up with neurology services. He has been recommended to follow up with neurology services regularly. He also been instructed to use helmet regularly. The documentation within this encounter was likely aided with DFine, an electronic spanisher device. Please excuse any errors or omissions that may not have been recognized at the time of this encounter. Discontinued Medications: Medications Discontinued During This Encounter Medication Reason lamoTRIgine 200 MG tablet Duplicate (suppress cancel msg) pravastatin 40 MG tablet Reorder Requested Prescriptions Signed Prescriptions Disp Refills Pravastatin 40 MG tablet 90 tablet 1 Sig: Take 1 tablet by mouth every evening at 6 PM. There are no Patient Instructions on file for this visit. documented in this [facility] [id number] History of Present illness Narrative* Kimberly Haney - 06/28/2022 3:00 PM EST Nurse Note: Review of Systems Constitutional: Negative. HENT: Negative. Eyes: Negative. Respiratory: Negative. Cardiovascular: Negative. Gastrointestinal: Negative. Endocrine: Negative. Genitourinary: Negative. Musculoskeletal: Negative. Skin: Negative. Allergic/Immunologic: Negative. Neurological: Negative. Hematological: Negative. Psychiatric/Behavioral: Negative. Nursing Assessment: Pt presents for HSFU. Pt states he had a fall on 05/31/22, had a small cut on back of head. Pt states he decided to go get checked out a few days after the fall due to not feelingwell. Pt stated he is now seeing Dr Arreguin and is scheduled to have an MRI on this coming 07/01/22. Date of Admission: 06/03/22 Date of Discharge: 06/04/22 Hospital: [facility] Primary DX: Subdural Hematomoa How have you been feeling since you got home: Feeling fine Do you have new medications? yes Are you taking all your medications? yes How are you: Eating:good Sleeping: good Getting Around: good Going to the Bathroom: good Other: Do you have visiting nurse/home health? no Did you have surgery? no If so, How is your wound: NA Comments: If you have Congestive Heart Failure are you weighing yourself? no Weight: Any other issues or concerns? Because of your recent hospital/half-way stay, we would like to get you on the schedule for a follow up appointment. Please bring all your medicines and questions with you. Physical Exam * Inder Banda MD - 06/28/2022 3:00 PM EST Chief Complaint: Chief Complaint [facility] History of Present Illness Danette Moore is a 56 y.o. male who presents today with the following concerns: [facility] History of HTN, HLD, epilepsy, vagal nerve stimulator presented with slurred speech. Patient was transferred from outside ER to ER due to finding of subdural hematoma. Per patient and his mother who is at bedside, patient has long history of drop seizures. When he has a seizure hefell straight back and almost always strikes his occiput which [facility] and [facility]. Patient's last seizure was at 1 week prior to presentation. His reason for presentation was slurred speech. He reports for the last 3 to 4 days he has had slurred speech and difficulty word finding. He has also felt off balance and had difficulty with complex tasks such as tying his shoes and math that he previously had no issue with. He has had to sit on the edge of the bed to dress himself due to his balance issues which previously were not an issue for him. He also reports some right eye drooping. He denies any difficulty swallowing. He denies any changes in his vision or hearing. He denies any clumsiness with his upper extremities. He has had no issues with feeding himself, combing his hair, brushing his teeth. He denies any falls since his seizure but feels he may fall due to his lack of balance. He denies any dizziness. He reports he was athis normal state of health prior to this episode. His only new medications were pravastatin, hydrochlorothiazide, potassium supplement. He denies any recent illness or fevers. Denies headache. Slurred speech Subdural hematoma Seen and examined Clinically stable No complaints CT brain a 1 to 2 mm maximal diameter acute interhemispheric subdural hematoma with no significant mass-effect Seen by Neurosurgery No indication for neurosurgical intervention Neurosurgery signed off Neurology was consulted PT OT evaluation Complex epilepsy Vagal nerve stimulator Seizures are drop seizures Consult to neurology Continue home topiramate, Lamictal, clobazam Hypertension Hyperlipidemia Continue home statin Continue home hydrochlorothiazide Discharge Medications Discharge Medications Medications To Continue Details acetaminophen 325 MG tablet Commonly known as: TYLENOL Take 1 (one) tablet (325 mg total) by mouth as needed for pain . CALCIUM ORAL Take 1 tablet by mouth every other day . cholecalciferol (vitamin D3) 50 mcg (2,000 unit) Tab Take 2,000 Units by mouth Tuesday, Tuesday, Tuesday . cloBAZam 10 mg tablet Commonly known as: ONFI Take 2.5 (two and a half) tablets (25 mg total) by mouth 2 (two) times a day Morning and evening . fish oil-omega-3 fatty acids 300-1,000 mg capsule Take 2 (two) capsules by mouth 2 (two) times a day . hydroCHLOROthiazide 12.5 mg capsule Commonly known as: MICROZIDE Take 1 (one) capsule (12.5 mg total) by mouth daily . * lamoTRIgine 100 MG tablet Commonly known as: LAMICTAL Take 1/2 tablet (50 mg) With 200 mg = 250 mg twice a day . * lamoTRIgine 200 MG tablet Commonly known as: LAMICTAL Take 1 (one) tablet (200 mg total) by mouth With 50 mg (1/2 of 100 mg tablet) = 250 mg twice a day . LORazepam 1 MG tablet Commonly known as: ATIVAN 1 tab if drop down attack,2 days in a row potassium citrate 10 mEq (1,080 mg) SR tablet Commonly known as: UROCIT-K Take 1 (one) tablet (10 mEq total) by mouth 3 (three) times a day with meals . pravastatin 40 MG tablet Commonly known as: PRAVACHOL Take 1 (one) tablet (40 mg total) by mouth every evening . topiramate 200 MG tablet Commonly known as: TOPAMAX Take 1 (one) tablet (200 mg total) by mouth 2 (two) times a day . patient hospitalization has been reviewed. Medications been reviewed. Laabs been reviewed. CT imaging s well as consultations have been reviewed Heart:Patient denies any exertional chest pain, dyspnea, palpitations, syncope, orthopnea, edema orparoxysmal nocturnal dyspnea. Lung:The patient denies cough, chest pain, dyspnea, wheezing or hemoptysis. Abdomen: The patient denies abdominal or flank pain, anorexia, nausea or vomiting, dysphagia, change in bowel habits or black or bloody stools or weight loss. Extremities:Patient denies low back pain or painful or reduced range of motion of the back. Neurological; patient with a history of long-standing seizure disorder being followed by multiple neurologists services recently has had a traumatic fall with the precipitation of slurred speech as well as difficulty word finding. His evaluation and did reveal a CT brain improvement in 1-2 mm maximal diameter acute interhemispheric subdural hematoma with no significant mass effect. He was seen byneurosurgical service as nonsurgical candidate. He is been recovering well. He will be having repeat MRI of the brain Jul 01, 2022 His labs were reviewed. Vitamin D adequate. White blood count is mildly elevated at 11.1 with no left shift. Fasting blood glucose normal. Hemoglobin A1c 5.9% Problems discussed today also include: problems updated.HPI comments may also be noted in 'Overview' section on the Problem List and appear at the end of this note under problem summary. 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 Reviewed today. Medications on arrival 06/28/2022 Outpatient Medications Prior to Visit Medication Sig Dispense Refill CALCIUM PO take 1 Tab by mouth 0900 every other day. Cholecalciferol (Vitamin D3) 50 MCG (2000 UT) tablet Take 1 tablet by mouth every Tuesday, Tuesdayand Tuesday. (Patient taking differently: Take 2,000 Units by mouth every Tuesday, Tuesday and Tuesday. 100 mg M W ) cloBAZam 10 MG tablet 25 mg 2 times daily. hydroCHLOROthiazide 12.5 MG capsule Take 1 capsule by mouth daily. 90 capsule 3 hydroCHLOROthiazide 12.5 MG capsule Take 1 capsule by mouth daily. lamoTRIgine 100 MG tablet Take 0.5 tablets by mouth 2 times daily. lamoTRIgine 200 MG tablet Take 0.5 tablets by mouth 2 times daily. 1 bid Please use the same manufacture. 180 tablet 1 lamoTRIgine 200 MG tablet Take 1 tablet by mouth 2 times daily. LORazepam 1 MG Tab take 1 tablet by mouth every 6 hours as needed for Seizures (one pill if drop attack two days in a row).. 10 tablet 0 Marl[place]-3 Fatty Acids 1000 MG capsule Take 1 capsule by mouth 2 times daily. ondansetron 4 MG Tab Dispersible tablet Take 1 tablet by mouth every [address] on tongue (Patient taking differently: Take 4 mg by mouth as needed. Place on tongue) 15 tablet 0 potassium citrate 10 MEQ (1080 MG) Tab CR Take 1 tablet by mouth 3 times daily. 270 tablet 3 pravastatin 40 MG tablet Take 1 tablet by mouth every evening at 6 PM. 90 tablet 1 topiramate 200 MG tablet 200 mg 2 times daily. No facility-administered medications prior to visit. Nurse Note: Review of Systems Constitutional: Negative. HENT: Negative. Eyes: Negative. Respiratory: Negative. Cardiovascular: Negative. Gastrointestinal: Negative. Endocrine: Negative. Genitourinary: Negative. Musculoskeletal: Negative. Skin: Negative. Allergic/Immunologic: Negative. Neurological: Negative. Hematological: Negative. Psychiatric/Behavioral: Negative. Nursing Assessment: Pt presents for HSFU. Pt states he had a fall on 05/31/22, had a small cut on back of head. Pt states he decided to go get checked out a few days after the fall due to not feelingwell. Pt stated he is now seeing Dr Arreguin and is scheduled to have an MRI on this coming 07/01/22. Date of Admission: 06/03/22 Date of Discharge: 06/04/22 Hospital: [facility] Primary DX: Subdural Hematomoa How have you been feeling since you got home: Feeling fine Do you have new medications? yes Are you taking all your medications? yes How are you: Eating:good Sleeping: good Getting Around: good Going to the Bathroom: good Other: Do you have visiting nurse/home health? no Did you have surgery? no If so, How is your wound: NA Comments: If you have Congestive Heart Failure are you weighing yourself? no Weight: Any other issues or concerns? Because of your recent hospital/half-way stay, we would like to get you on the schedule for a follow up appointment. Please bring all your medicines and questions with you. Physical Exam Allergies He has No Known Allergies. Family History His family history includes Cancer in his father; Heart Disease - Other in his father; Kidney Disease in his father. Social History He reports that he has been smoking cigarettes. He has been smoking an average of .25 packs per day. He has never used smokeless tobacco. He reports that he does not drink alcohol and does not use drugs. Physical Exam Blood pressure 132/71, pulse 74, temperature 98.3 F (36.8 C), temperature source Temporal, resp. rate 14, height 1.753 m (5' 9 ), weight 81.9 kg (180 lb 8 oz), SpO2 97 %., Body mass index is 26.66 kg/m . Constitutional: He appears Stable. His been wearing a helmet at this time. Head: Normocephalic and atraumatic. Eyes: Reactive pupils, no conjunctival injection, no jaundice. Ears: Normal TMs, normal external ear and ear canal. Nose: No nasal congestion/bogginess, no sinus tenderness Mouth/Throat: Moist mucous membranes. No pharyngeal erythema Neck: Neck supple. Thyroid not enlarged. No anterior cervical LAD. Cardiovascular: No carotid bruits. Heart with regular rhythm, normal heart sounds. Pulmonary/Chest: Effort normal, breath sounds normal. Musculoskeletal: No joint deformity of hands, neck, or knees noted. Good ROM of all visible joints during exam. Gait & balance normal on observation within exam room. Psychiatric: Mood and affect normal. Judgment normal. Ordered thought content. Assessment/Plan Problem List Items Addressed This Visit Digestive Vitamin D deficiency; Patient will continue vitamin D therapy. Vitamin D evaluation periodically Relevant Orders VITAMIN D (25-HYDROXY,TOTAL) Other Visit Diagnoses IFG (impaired fasting glucose) - Primary; hemoglobin A1c 5.9%. Dietary changes recommended. We willfollow lab periodically Relevant Orders CBC, EDIF, PLATELET CHEM 7 (LYTES,BUN,CREA,GLUC) HEMOGLOBIN A1C Dyslipidemia Patient's lipids been stable. Continue current regimen. We will follow the lab periodically Relevant Orders LIPID PANEL W CALCULATED LDL HEPATIC FUNCTION PANEL Leukocytosis, unspecified type ; mildly elevated white cell count. No evidence of any infection. This could be reactive. I would continue to monitor his CBC at this time. If he clinically shows any symptom of infection or has any other changes he will need to have further workup including a repeat CBC as well as infectious diagnostics Epileptic drop attack Patient has had epileptic drop attacks over the recent history of subdural hematoma in the hand interhemispheric area. Nonsurgical candidate. He will be followed by neurology services with MRI. Fall precaution recommended. Agree with the patient wearing helmet at this time. The documentation within this encounter was likely aided with DFine, an electronic spanisher device. Please excuse any errors or omissions that may not have been recognized at the time of this encounter. Discontinued Medications: There are no discontinued medications. Requested Prescriptions No prescriptions requested or ordered in this encounter There are no Patient Instructions on file for this visit. [facility] Emergency [facility] Note* Amol Colin RN - 06/02/2022 2:28 PM EDT Report given to Owen at this time [facility] Note* Amol Colin RN - 06/02/2022 2:28 PM EDT Report given to Owen at this time * REGINA Montoya - 06/02/2022 1:39 PM EDT Owen Mcneal) gave ETA of 1415. Transport accepted. Patient, provider & RN notified. * REGINA Montoya - 06/02/2022 1:25 PM EDT Requested disk from CT * REGINA Montoya - 06/02/2022 1:21 PM EDT [facility] called stating this patient is accepted to the [facility] by Dr Posadas. Provider notified. * REGINA Montoya - 06/02/2022 1:02 PM EDT Called [facility] at this time. * Felipa Garrison RN - 06/02/2022 12:34 PM EDT Pt to CT * Radha Hill RN - 06/02/2022 11:13 AM EDT Pt states had a seizure a week ago. Since then has a headache on and off and feels as if walking ismore difficult documented in this encounterBlanch[facility]10-12-[facility] Emergency department Note* REGINA Montoya - 06/02/2022 1:39 PM EDT Owen Mcneal) gave ETA of 1415. Transport accepted. Patient, provider & RN notified. [facility]* REGINA Montoya - 06/02/2022 1:25 PM EDT Requested disk from CT [facility] Note* REGINA Montoya - 06/02/2022 1:21 PM EDT [facility] called stating this patient is accepted to the [place] [facility] by Dr Posadas. Provider notified. [facility]* REGINA Montoya - 06/02/2022 1:02 PM EDT Called [facility] at this time. [facility]* Felipa Garrison RN - 06/02/2022 12:34 PM EDT Pt to CT [facility] Note* Radha Hill RN - 06/02/2022 11:13 AM EDT Pt states had a seizure a week ago. Since then has a headache on and off and feels as if walking ismore difficult [facility] History of Present illness Narrative* Radha Gonzalez MD - 05/19/2022 2:30 PM EDT DAILY PROGRESS NOTE Admit Date: (Not on file) Date of Evaluation: 23:03 PM [facility] IMPRESSION AND PLAN: 55 y/o male with history of seizure and epilepsy is here for CKD care. 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 Will get renal panel. 2) Kidney stone PTH [facility] disclosed high urine pH and low citrate. Continue potassium citrate. Continue Hydrochlorothiazide. 3) HTN: SBP 130s Continue Hydrochlorothiazide. 4) Chronic normocytic anemia H and H 12.9 -> 14.1 and 38.9 -> 41.6 Last colonoscopy was 2019 Recommend high iron food. Will get CBC, SUBJECTIVE: Patient seen and examined. Chart, medications, labs reviewed. Office Visit on 01/06/2022 Component Date Value Ref Range Status POCT APPEARANCE, URINE 01/06/2022 clear Final POCT COLOR, URINE 01/06/2022 yellow Final POCT GLUCOSE, URINE 01/06/2022 neg mg/dL Final POCT BILIRUBIN, URINE 01/06/2022 neg Final POCT KETONES, URINE 01/06/2022 neg mg/dL Final POCT SPECIFIC GRAVITY, URINE 01/06/2022 1.020 1.001 - 1.035 Final POCT BLOOD, URINE 01/06/2022 neg Final POCT PH, URINE 01/06/2022 7.0 5 - 7 Final POCT PROTEIN, URINE 01/06/2022 neg mg/dL Final POCT UROBILINOGEN, URINE 01/06/2022 0.2 0 - 2 E.U./dL Final POCT NITRITE, URINE 01/06/2022 neg Final POCT LEUKOCYTE, URINE 01/06/2022 neg Final LABS Labs-ABGs @ABGROUNDS@ Labs-CBC @CBCBRIEFROUNDS@ Labs-Chem 7([facility]) @[facility]@ Labs-Coa WBC (WHITE BLOOD COUNT) Date Value Ref Range Status 10/28/2021 8.5 3.6 - 11.0 10*3/uL Final 03/09/2021 10.6 3.6 - 11.0 10*3/uL Final 02/20/2018 10.75 (H) 4.23 - 9.07 K/uL Final HEMOGLOBIN (HGB) Date Value Ref Range Status 10/28/2021 12.9 (L) 14.0 - 18.0 G/DL Final 03/09/2021 13.6 (L) 14.0 - 18.0 G/DL Final 02/20/2018 14.0 13.7 - 17.5 g/dL Final HEMATOCRIT (HCT) Date Value Ref Range Status 10/28/2021 38.9 (L) 42.0 - 52.0 % Final 03/09/2021 40.9 (L) 42.0 - 52.0 % Final 02/20/2018 43.0 40.1 - 51.0 % Final PLATELET COUNT Date Value Ref Range Status 10/28/2021 355 130.0 - 400.0 10*3/uL Final 03/09/2021 363 130.0 - 400.0 10*3/uL Final 02/20/2018 388 (H) 163 - 337 K/uL Final SODIUM Date Value Ref Range Status 10/28/2021 136 136 - 145 MMOL/L Final 06/05/2021 140 136 - 145 MMOL/L Final 03/09/2021 141 136 - 145 MMOL/L Final CHLORIDE Date Value Ref Range Status 10/28/2021 105 98 - 107 MMOL/L Final 06/05/2021 111 (H) 98 - 107 MMOL/L Final 03/09/2021 111 (H) 98 - 107 MMOL/L Final BUN Date Value Ref Range Status 10/28/2021 19 7 - 20 MG/DL Final 06/05/2021 16 7 - 20 MG/DL Final 03/09/2021 15 7 - 20 MG/DL Final POTASSIUM Date Value Ref Range Status 10/28/2021 3.7 3.5 - 5.1 MMOL/L Final 06/05/2021 3.4 (L) 3.5 - 5.1 MMOL/L Final 03/09/2021 3.3 (L) 3.5 - 5.1 MMOL/L Final CREATININE SERUM Date Value Ref Range Status 10/28/2021 0.96 0.66 - 1.25 MG/DL Final 06/05/2021 0.85 0.66 - 1.25 MG/DL Final 03/09/2021 1.15 0.66 - 1.25 MG/DL Final POCT GLUCOSE, URINE Date Value Ref Range Status 01/06/2022 neg mg/dL Final 10/08/2021 neg mg/dL Final GLUCOSE Date Value Ref Range Status 10/28/2021 95 70 - 100 MG/DL Final Comment: NORMAL <100 mg/dL PREDIABETES 101-126 mg/dL DIABETES 126 mg/dL or higher PT Date Value Ref Range Status 02/20/2018 12.6 11.9 - 14.2 sec Final PROTEIN, TOTAL Date Value Ref Range Status 03/09/2021 7.2 6.3 - 8.2 GM/DL Final 01/30/2018 7.7 6.3 - 8.2 GM/DL Final 06/16/2017 7.7 6.3 - 8.2 GM/DL Final Albumin Date Value Ref Range Status 10/28/2021 3.7 3.5 - 5.0 G/dl Final 03/09/2021 3.9 3.5 - 5.0 G/dl Final 01/30/2018 3.9 3.5 - 5.0 G/dl Final AST Date Value Ref Range Status 03/09/2021 12 (L) 15 - 41 IU/L Final 01/30/2018 14 (L) 15 - 41 IU/L Final 06/16/2017 14 (L) 15 - 41 IU/L Final ALT Date Value Ref Range Status 03/09/2021 17 17 - 63 IU/L Final 01/30/2018 16 (L) 17 - 63 IU/L Final 06/16/2017 15 (L) 17 - 63 IU/L Final BILIRUBIN, TOTAL Date Value Ref Range Status 03/09/2021 0.2 0.2 - 1.2 MG/DL Final CALCIUM Date Value Ref Range Status 10/28/2021 8.7 8.4 - 10.2 MG/DL Final 06/05/2021 9.2 8.4 - 10.2 MG/DL Final 03/09/2021 9.0 8.4 - 10.2 MG/DL Final PHOSPHATE, INORGANIC Date Value Ref Range Status 12/23/2009 3.7 2.7 - 4.5 mg/dL Final Comment: SLIGHTLY HEMOLYZED PHOSPHORUS Date Value Ref Range Status 10/28/2021 3.5 2.5 - 4.5 MG/DL Final 06/05/2021 2.9 2.5 - 4.5 MG/DL Final MAGNESIUM Date Value Ref Range Status 10/28/2021 1.9 1.6 - 2.3 MG/DL Final 03/09/2021 1.9 1.6 - 2.3 MG/DL Final 07/30/2014 1.8 1.6 - 2.6 mg/dL Final Lab Results Component Value Date CREATURINE 27.0 10/28/2021 CREATSERUM 0.96 10/28/2021 BUN 19 10/28/2021 SODIUM 136 10/28/2021 POTASSIUM 3.7 10/28/2021 CHLORIDE 105 10/28/2021 CO2 23 10/28/2021 ROS: Constitution: No fever, no chill HEENT: No headache, no sinus issues CV: No chest pain, no palpitation Lung: No cough, No SOB Abd: No diarrhea, no constipation Neuro: No seizure, no loss of consciousness Heme: No bleeding, no bruise PHYSICAL EXAM: Wt Readings from Last 3 Encounters: 05/19/22 83.7 kg (184 lb 9.6 oz) 04/06/22 82.7 kg (182 lb 6.4 oz) 03/15/22 81.6 kg (180 lb) Temp Readings from Last 3 Encounters: 04/06/22 98 F (36.7 C) (Temporal) 03/15/22 98.3 F (36.8 C) 03/09/22 98 F (36.7 C) (Temporal) BP Readings from Last 3 Encounters: 05/19/22 132/70 04/06/22 123/81 03/15/22 127/67 Pulse Readings from Last 3 Encounters: 05/19/22 70 04/06/22 64 03/15/22 69 Gen: NAD, lying in bed, conversant HEENT: Atraumatic, PERRLA, moist membrane CV: RRR, nl S1 and S2, no m/g/r Lung: CTAB, no wheezing, no crackle Abd: +BS, nontender, no distended Ext: No rash, no clubbing, no cyanosis. No edema. Neuro: CNII-XII grossly intact, 5/5 strength, normal tone Skin: Warm and dry documented in this encounterBl[facility]07-26-[facility] History of Present illness Narrative* Paula Omer NP - 03/16/2022 7:34 PM EDT Patient called and left a message and requested refill of clobazam 10 mg 2.5 tablets BID. I am refusing the refill Noted on [facility]; patient has refills left on current rx and recently filled a 20 day supply 03/07/22.Patient has 4 refills left from that rx. At his last visit 12/30/21 he was establishing with Dr. Mcnair in [place] and he and his were advised that we would not be following with medication refills after patient transferred. Please confirm if patient transferred to [place]. Thanks documented in this encounterFox Chase Cancer [id number] Physician Emergency department Note* Winter Maria PA-C - 03/15/2022 11:14 AM EDT Emergency Department Report [facility] Service Date:.03/15/22 PCP: Inder Banda Chief Complaint: Chief Complaint Patient presents with Fall TO ED after falling during seizure. Pt hit head on table. History of seizures. Fall occurred [id number]. HPI Danette Danielle Moore is a 56 y.o. male. History is obtained from the patient and his .He states that he was getting ready to come to the hospital for an ultrasound today when he had a seizure and fell backwards. They state that he has these intermittently for years. There is nothing new or unusual about the seizure. He did Sustain a laceration to his scalp posteriorly. They state their earliest Y desirae for the laceration and then they went to get to the ultrasound appointment. He denies any headache no altered mental status no vomiting. His is here is in agreement with this plan. He had no other injuries. Review of Systems: Review of Systems Review of Systems negative other than stated in the HPI 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 vns stimulator implanted Renal disease kidney stones Seizures Past Surgical History: Past Surgical History: Procedure Laterality Date CYSTOURETHROSCOPY W/ URETEROSCOPY/PYELOSCOPY W/ LITHOTRIPSY Bilateral 04/23/2021 Laterality: Bilateral; Surgeon: Joseph Singh MD; Location: [facility] CYSTOURETHROSCOPY W/ URETEROSCOPY/PYELOSCOPY W/ LITHOTRIPSY INCL STENT INSERTION Bilateral 04/09/2021 Laterality: Bilateral; Surgeon: Joseph Singh MD; Location: [facility] OR INSERTION NEUROSTIMULATOR ELECTRODE & GENERATOR CRANIAL NERVE (EG VAGUS) OPEN N/A 03/03/2018 Laterality: N/A; Surgeon: Riley Rubi DO; Location: [facility] MAIN OR ANALYSIS/PROGRAMMING NEUROSTIMULATOR GENERATOR SYSTEM N/A 03/03/2018 Laterality: N/A; Surgeon: Riley Rubi DO; Location: [facility] MAIN OR COLONOSCOPY DIAGNOSTIC 2017 EYE SURGERY Allergies: No Known Allergies Medications: Patient's Medications New Prescriptions No medications on file Previous Medications CALCIUM PO take 1 Tab by mouth 0900 every other day. CHOLECALCIFEROL (VITAMIN D3) 50 MCG (1999 UT) TABLET Take 1 tablet by mouth every Tuesday, Tuesdayand Tuesday. CLOBAZAM 10 MG TABLET 25 mg 2 times daily. HYDROCHLOROTHIAZIDE 12.5 MG CAPSULE Take 1 capsule by mouth daily. HYDROCHLOROTHIAZIDE 12.5 MG CAPSULE Take 1 capsule by mouth daily. LAMOTRIGINE 100 MG TABLET Take 0.5 tablets by mouth 2 times daily. LAMOTRIGINE 200 MG TABLET Take 0.5 tablets by mouth 2 times daily. 1 bid Please use the same manufacture. LAMOTRIGINE 200 MG TABLET Take 1 tablet by mouth 2 times daily. LORAZEPAM 1 MG TAB take 1 tablet by mouth every 6 hours as needed for Seizures (one pill if drop attack two days in a row).. OMEGA-3 FATTY ACIDS 1000 MG CAPSULE Take 1 capsule by mouth 2 times daily. ONDANSETRON 4 MG TAB DISPERSIBLE TABLET Take 1 tablet by mouth every [address] on tongue POTASSIUM CITRATE 10 MEQ (1080 MG) TAB CR Take 1 tablet by mouth 3 times daily. PRAVASTATIN 40 MG TABLET Take 1 tablet by mouth every evening at 6 PM. TOPIRAMATE 200 MG TABLET 200 mg 2 times daily. TOPIRAMATE 200 MG TABLET Take 200 mg by mouth Twice daily. Modified Medications No medications on file Discontinued Medications No medications on file Family History: Family History Problem Relation Age of Onset Cancer Father testes Kidney Disease Father Heart Disease - Other Father Social History: Social History Socioeconomic History Marital status: Single Spouse name: Not on file Number of children: Not on file Years of education: Not on file Highest education level: Not on file Occupational History Not on file Tobacco Use Smoking status: Current Every Day Smoker Packs/day: 0.25 Types: Cigarettes Smokeless tobacco: Never Used Substance and Sexual Activity Alcohol use: No Drug use: No Sexual activity: Not on file Other Topics Concern Not on file Social History Narrative Not on file Social Determinants of Health Financial Resource Strain: Not on file Food Insecurity: Not on file Transportation Needs: Not on file Physical Activity: Not on file Stress: Not on file Social Connections: Not on file Intimate Partner Violence: Not on file Housing Stability: Not on file Physical Exam: Physical Exam Vitals and nursing note reviewed. Constitutional: Appearance: Normal appearance. HENT: Head: Normocephalic. Comments: On the posterior scalp there is a 2 cm laceration. There is no bony crepitus to bleeding has been controlled. He has no swelling surrounding. Eyes: Conjunctiva/sclera: Conjunctivae normal. Pulmonary: Effort: Pulmonary effort is normal. No respiratory distress. Breath sounds: Normal breath sounds. No wheezing. Abdominal: General: There is no distension. Palpations: Abdomen is soft. Tenderness: There is no abdominal tenderness. Musculoskeletal: General: No tenderness, deformity or signs of injury. Normal range of motion. Cervical back: Normal range of motion and neck supple. No rigidity or tenderness. Skin: Findings: No rash. Neurological: General: No focal deficit present. Mental Status: He is alert and oriented to person, place, and time. Cranial Nerves: No cranial nerve deficit. Motor: No weakness. Psychiatric: Behavior: Behavior normal. Thought Content: Thought content normal. Judgment: Judgment normal. Vital Signs During ED Visit Patient Vitals for the past 24 hrs: BP Temp Pulse Resp SpO2 Height Weight 03/15/22 1055 -- -- -- -- -- 1.727 m (5' 8 ) 81.6 kg (180 lb) 03/15/22 1053 127/67 98.3 F (36.8 C) 69 18 95 % -- -- Orders/Results: No orders of the defined types were placed in this encounter. No results found for this visit on 03/15/22. Radiographic Imaging No orders to display Procedures: Procedures Patient gave permission for the procedure before starting. The area was numbed with 3 mL 1% plain lidocaine. It was cleaned with Hibiclens and saline solution irrigated. It was then closed with 4 desirae. Patient tolerated this well good closure and hemostasis is obtained no foreign bodies were seen in the wound edges were not altered or debrided in any way. Moderate Sedation Procedure: No ED Summary/MDM I offered to do a CT scan of the patient's head to evaluate for any possible skull fractures or intracranial hemorrhages or bleeding. They declined this at this time states that they will return if he has any headache altered mental status vomiting or other concerns. They are aware that there is a risk of bleeding. They were discharged follow up with her family doctor and follow-up for staple removal in approximately 7-10 days. They have changing or worsening symptoms or return for evaluation. He did not want any evaluation for his seizure today. Clinical Impression: 1. Scalp laceration, initial encounter 2. Seizure No follow-ups on file. New Prescriptions No medications on file Discontinued Medications No medications on file Patient will be Discharged to home An After Visit Summary was printed and given to the patient with above information. Winter Maria PA-C [facility] Emergency Department [place], [place] . . Winter Maria PA-C 03/15/22 0409 [facility] Work Phone: [phone] 754-679707-25-2022 Emergency department Note* MARCELL Lopez - 03/15/2022 11:14 AM EDT Emergency Department Report [facility] Service Date:.03/15/22 PCP: Inder Banda Chief Complaint: Chief Complaint Patient presents with Fall TO ED after falling during seizure. Pt hit head on table. History of seizures. Fall occurred [id number]. [facility] Danette Moore is a 56 y.o. male. History is obtained from the patient and his .He states that he was getting ready to come to the hospital for an ultrasound today when he had a seizure and fell backwards. They state that he has these intermittently for years. There is nothing new or unusual about the seizure. He did Sustain a laceration to his scalp posteriorly. They state their earliest Y desirae for the laceration and then they went to get to the ultrasound appointment. He denies any headache no altered mental status no vomiting. His is here is in agreement with this plan. He had no other injuries. Review of Systems: Review of Systems Review of Systems negative other than stated in the [facility] 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 vns stimulator implanted Renal disease kidney stones Seizures Past Surgical History: Past Surgical History: Procedure Laterality Date CYSTOURETHROSCOPY W/ URETEROSCOPY/PYELOSCOPY W/ LITHOTRIPSY Bilateral 04/23/2021 Laterality: Bilateral; Surgeon: Joseph Singh MD; Location: [facility] CYSTOURETHROSCOPY W/ URETEROSCOPY/PYELOSCOPY W/ LITHOTRIPSY INCL STENT INSERTION Bilateral 04/09/2021 Laterality: Bilateral; Surgeon: Joseph Singh MD; Location: [facility] OR INSERTION NEUROSTIMULATOR ELECTRODE & GENERATOR CRANIAL NERVE (EG VAGUS) OPEN N/A 03/03/2018 Laterality: N/A; Surgeon: Riley Rubi DO; [facility] ANALYSIS/PROGRAMMING NEUROSTIMULATOR GENERATOR SYSTEM N/A 03/03/2018 Laterality: N/A; Surgeon: Riley Rubi DO; Location: [facility] MAIN OR COLONOSCOPY DIAGNOSTIC 2017 EYE SURGERY Allergies: No Known Allergies Medications: Patient's Medications New Prescriptions No medications on file Previous Medications CALCIUM PO take 1 Tab by mouth 0900 every other day. CHOLECALCIFEROL (VITAMIN D3) 50 MCG (2000 UT) TABLET Take 1 tablet by mouth every Tuesday, Tuesdayand Tuesday. CLOBAZAM 10 MG TABLET 25 mg 2 times daily. HYDROCHLOROTHIAZIDE 12.5 MG CAPSULE Take 1 capsule by mouth daily. HYDROCHLOROTHIAZIDE 12.5 MG CAPSULE Take 1 capsule by mouth daily. LAMOTRIGINE 100 MG TABLET Take 0.5 tablets by mouth 2 times daily. LAMOTRIGINE 200 MG TABLET Take 0.5 tablets by mouth 2 times daily. 1 bid Please use the same manufacture. LAMOTRIGINE 200 MG TABLET Take 1 tablet by mouth 2 times daily. LORAZEPAM 1 MG TAB take 1 tablet by mouth every 6 hours as needed for Seizures (one pill if drop attack two days in a row).. OMEGA-3 FATTY ACIDS 1000 MG CAPSULE Take 1 capsule by mouth 2 times daily. ONDANSETRON 4 MG TAB DISPERSIBLE TABLET Take 1 tablet by mouth every [address] on tongue POTASSIUM CITRATE 10 MEQ (1080 MG) TAB CR Take 1 tablet by mouth 3 times daily. PRAVASTATIN 40 MG TABLET Take 1 tablet by mouth every evening at 6 PM. TOPIRAMATE 200 MG TABLET 200 mg 2 times daily. TOPIRAMATE 200 MG TABLET Take 200 mg by mouth Twice daily. Modified Medications No medications on file Discontinued Medications No medications on file Family History: Family History Problem Relation Age of Onset Cancer Father testes Kidney Disease Father Heart Disease - Other Father Social History: Social History Socioeconomic History Marital status: Single Spouse name: Not on file Number of children: Not on file Years of education: Not on file Highest education level: Not on file Occupational History Not on file Tobacco Use Smoking status: Current Every Day Smoker Packs/day: 0.25 Types: Cigarettes Smokeless tobacco: Never Used Substance and Sexual Activity Alcohol use: No Drug use: No Sexual activity: Not on file Other Topics Concern Not on file Social History Narrative Not on file Social Determinants of Health Financial Resource Strain: Not on file Food Insecurity: Not on file Transportation Needs: Not on file Physical Activity: Not on file Stress: Not on file Social Connections: Not on file Intimate Partner Violence: Not on file Housing Stability: Not on file Physical Exam: Physical Exam Vitals and nursing note reviewed. Constitutional: Appearance: Normal appearance. HENT: Head: Normocephalic. Comments: On the posterior scalp there is a 2 cm laceration. There is no bony crepitus to bleeding has been controlled. He has no swelling surrounding. Eyes: Conjunctiva/sclera: Conjunctivae normal. Pulmonary: Effort: Pulmonary effort is normal. No respiratory distress. Breath sounds: Normal breath sounds. No wheezing. Abdominal: General: There is no distension. Palpations: Abdomen is soft. Tenderness: There is no abdominal tenderness. Musculoskeletal: General: No tenderness, deformity or signs of injury. Normal range of motion. Cervical back: Normal range of motion and neck supple. No rigidity or tenderness. Skin: Findings: No rash. Neurological: General: No focal deficit present. Mental Status: He is alert and oriented to person, place, and time. Cranial Nerves: No cranial nerve deficit. Motor: No weakness. Psychiatric: Behavior: Behavior normal. Thought Content: Thought content normal. Judgment: Judgment normal. Vital Signs During ED Visit Patient Vitals for the past 24 hrs: BP Temp Pulse Resp SpO2 Height Weight 03/15/22 1055 -- -- -- -- -- 1.727 m (5' 8 ) 81.6 kg (180 lb) 03/15/22 1053 127/67 98.3 F (36.8 C) 69 18 95 % -- -- Orders/Results: No orders of the defined types were placed in this encounter. No results found for this visit on 03/15/22. Radiographic Imaging No orders to display Procedures: Procedures Patient gave permission for the procedure before starting. The area was numbed with 3 mL 1% plain lidocaine. It was cleaned with Hibiclens and saline solution irrigated. It was then closed with 4 desirae. Patient tolerated this well good closure and hemostasis is obtained no foreign bodies were seen in the wound edges were not altered or debrided in any way. Moderate Sedation Procedure: No ED Summary/MDM I offered to do a CT scan of the patient's head to evaluate for any possible skull fractures or intracranial hemorrhages or bleeding. They declined this at this time states that they will return if he has any headache altered mental status vomiting or other concerns. They are aware that there is a risk of bleeding. They were discharged follow up with her family doctor and follow-up for staple removal in approximately 7-10 days. They have changing or worsening symptoms or return for evaluation. He did not want any evaluation for his seizure today. Clinical Impression: 1. Scalp laceration, initial encounter 2. Seizure No follow-ups on file. New Prescriptions No medications on file Discontinued Medications No medications on file Patient will be Discharged to home An After Visit Summary was printed and given to the patient with above information. Winter Maria PA-C [facility] Emergency Department [place], [place] . . Winter Maria PA-C 03/15/22 [id number] documented in this encounterBl[facility] Discharge instructions* Discharge Instructions* Winter Maria PA-C - 03/15/2022 11:13 AM EDT If you have a severe headache altered mental status vomiting or anything else suture concerned about please return to the emergency room today for reevaluation * Attachments The following attachments cannot be sent through Care Everywhere. * Seizure (Togolese) * Lacerations: Desirae (Togolese) documented in this encounterBlanchard Valley [facility]07-19-2022 History of Present illness Narrative* Kimberly Haney - 03/09/2022 1:45 PM EDT Nurse Note: Review of Systems Constitutional: Negative. HENT: Negative. Eyes: Negative. Respiratory: Negative. Cardiovascular: Negative. Gastrointestinal: Negative. Endocrine: Negative. Genitourinary: Negative. Musculoskeletal: Negative. Skin: Negative. Allergic/Immunologic: Negative. Neurological: Negative. Hematological: Negative. Psychiatric/Behavioral: Negative. Nursing Assessment: Pt presents for 3mth follow up evaluate dyslipidemia, vitamin d deficiency, IFG(impaired fasting glucose). Physical Exam * Inder Banda MD - 03/09/2022 1:45 PM EDT Images from the original note were not included. Chief Complaint: Chief Complaint Patient presents with Follow-up 3mth evaluate dyslipidemia, vitamin d deficiency, IFG (impaired fasting glucose) History of Present Illness Danette Moore is a 56 y.o. male who presents today with the following concerns: Follow-up (3mth evaluate dyslipidemia, vitamin d deficiency, IFG (impaired fasting glucose)) Patient with a history of refractory seizure disorder with the drop attacks currently has a VNS, history of dyslipidemia, bilateral renal stones being managed by urology services has been doing fairly well. His recent laboratory evaluation shows a mild leukocytosis as well as elevated lymphocyte count. He has no fever. No abdominal pain. Correspondingly he also has got mildly elevated alkaline phosphatase. His LDL has been elevated. Patient has not been watching his diet. Patient has not had any nocturia. His PSA is 2.7 Vitamin D adequate. Heart:Patient denies any exertional chest pain, dyspnea, palpitations, syncope, orthopnea, edema orparoxysmal nocturnal dyspnea. Lung:The patient denies cough, chest pain, dyspnea, wheezing or hemoptysis. Abdomen: The patient denies abdominal or flank pain, anorexia, nausea or vomiting, dysphagia, change in bowel habits or black or bloody stools or weight loss. Extremities:Patient denies low back pain or painful or reduced range of motion of the back. Problems discussed today also include: problems updated.HPI comments may also be noted in 'Overview' section on the Problem List and appear at the end of this note under problem summary. 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 Reviewed today. Medications on arrival 03/09/2022 Outpatient Medications Prior to Visit Medication Sig Dispense Refill CALCIUM PO take 1 Tab by mouth 0900 every other day. cloBAZam 10 MG tablet 25 mg 2 times daily. hydroCHLOROthiazide 12.5 MG capsule Take 1 capsule by mouth daily. 90 capsule 3 hydroCHLOROthiazide 12.5 MG capsule Take 1 capsule by mouth daily. lamoTRIgine 100 MG tablet Take 0.5 tablets by mouth 2 times daily. lamoTRIgine 200 MG tablet Take 1 tablet by mouth 2 times daily. LORazepam 1 MG Tab take 1 tablet by mouth every 6 hours as needed for Seizures (one pill if drop attack two days in a row).. 10 tablet 0 Marlton-3 Fatty Acids 1000 MG capsule Take 1 capsule by mouth 2 times daily. ondansetron 4 MG Tab Dispersible tablet Take 1 tablet by mouth every [address]. [address] on tongue (Patient taking differently: Take 4 mg by mouth as needed. Place on tongue) 15 tablet 0 potassium citrate 10 MEQ (1080 MG) Tab CR Take 1 tablet by mouth 3 times daily. 270 tablet 3 topiramate 200 MG tablet 200 mg 2 times daily. topiramate 200 MG tablet Take 200 mg by mouth Twice daily. Cholecalciferol (Vitamin D3) 50 MCG (2000 UT) tablet Take 1 tablet by mouth every Tuesday, Tuesdayand Tuesday. (Patient taking differently: Take 2,000 Units by mouth every Tuesday, Tuesday and Tuesday. 100 mg M W ) lamoTRIgine 200 MG tablet Take 0.5 tablets by mouth 2 times daily. 1 bid Please use the same manufacture. 180 tablet 1 calcium acetate - Phos Binder 667 MG capsule Take 1,334 mg by mouth Every other day. (Patient not taking: Reported on 03/09/2022) Marlton 3 1000 MG capsule Take 2 g by mouth daily. (Patient not taking: Reported on 03/09/2022) potassium citrate 10 MEQ (1080 MG) Tab CR Take 1 tablet by mouth Three times a day. (Patient not taking: Reported on 03/09/2022) No facility-administered medications prior to visit. Nurse Note: Review of Systems Constitutional: Negative. HENT: Negative. Eyes: Negative. Respiratory: Negative. Cardiovascular: Negative. Gastrointestinal: Negative. Endocrine: Negative. Genitourinary: Negative. Musculoskeletal: Negative. Skin: Negative. Allergic/Immunologic: Negative. Neurological: Negative. Hematological: Negative. Psychiatric/Behavioral: Negative. Nursing Assessment: Pt presents for 3mth follow up evaluate dyslipidemia, vitamin d deficiency, IFG(impaired fasting glucose). Allergies He has No Known Allergies. Family History His family history includes Cancer in his father; Heart Disease - Other in his father; Kidney Disease in his father. Social History He reports that he has been smoking cigarettes. He has been smoking about 0.25 packs per day. He has never used smokeless tobacco. He reports that he does not drink alcohol and does not use drugs. Physical Exam Blood pressure 113/68, pulse 86, temperature 98 F (36.7 C), temperature source Temporal, resp. rate14, height 1.727 m (5' 8 ), weight 82.1 kg (181 lb), SpO2 96 %., Body mass index is 27.52 kg/m . Constitutional: He appears Stable Head: Normocephalic and atraumatic. Eyes: Reactive pupils, no conjunctival injection, no jaundice. Ears: Normal TMs, normal external ear and ear canal. Nose: No nasal congestion/bogginess, no sinus tenderness Mouth/Throat: Moist mucous membranes. No pharyngeal erythema Neck: Neck supple. Thyroid not enlarged. No anterior cervical LAD. Cardiovascular: No carotid bruits. Heart with regular rhythm, normal heart sounds. Pulmonary/Chest: Effort normal, breath sounds normal. Abdominal examination; abdomen is non-protuberant, nontender, no organomegaly. No rebound tenderness in the right upper quadrant. No Salgado's sign Rectal examination; rectal tone normal. No hemorrhoids. Prostate is firm, no nodules palpated. It is smooth. Musculoskeletal: No joint deformity of hands, neck, or knees noted. Good ROM of all visible joints during exam. Gait & balance normal on observation within exam room. Psychiatric: Mood and affect normal. Judgment normal. Ordered thought content. Assessment/Plan Problem List Items Addressed This Visit None Visit Diagnoses Leukocytosis, unspecified type - Primary; Patient Is a mild asymptomatic leukocytosis with a mild lymphocytosis. He has had a previous history of renal stones. No hematuria or symptoms to indicate any infectious process. I would recommend the patient to repeat a CBC along with sedimentation rate and C- reactive protein in the next 4 weeks to infer any changes. Relevant Orders CBC, EDIF, PLATELET SEDIMENTATION RATE, AUTOMATED C REACTIVE PROTEIN Dyslipidemia; Patient does have elevated LDL as well as triglycerides. I would recommend the patient to be started on pravastatin 40 MG by mouth daily. Do recommend to have fasting lipid evaluation. Hepatic panel in 4 weeks Relevant Medications pravastatin 40 MG tablet Other Relevant Orders LIPID PANEL W CALCULATED LDL HEPATIC FUNCTION PANEL IFG (impaired fasting glucose) ; impaired fasting blood glucose and noted. Dietary changes recommended. We will follow lab periodically Bilateral renal stones patient does have a history of bilateral renal stones. He has remained asymptomatic. Recommend follow-up with urology as planned Abnormal LFTs Mildly elevated alkaline phosphatase with no symptoms. I would recommend the patient has surfaced sonogram of the right upper quadrant for evaluation of any changes in the hepatic panel, and gallbladder and or more common bile duct Relevant Orders US ABDOMEN RUQ/LIVER/GB The documentation within this encounter was likely aided with DFine, an electronic spanisher device. Please excuse any errors or omissions that may not have been recognized at the time of this encounter. Discontinued Medications: Medications Discontinued During This Encounter Medication Reason calcium acetate - Phos Binder 667 MG capsule Duplicate (suppress cancel msg) Marlton 3 1000 MG capsule Duplicate (suppress cancel msg) potassium citrate 10 MEQ (1080 MG) Tab CR Duplicate (suppress cancel msg) Requested Prescriptions Signed Prescriptions Disp Refills pravastatin 40 MG tablet 90 tablet 1 Sig: Take 1 tablet by mouth every evening at 6 PM. There are no Patient Instructions on file for this visit. documented in this encounterBlanchard Valley [facility]06-28-2022 History of Present illness Narrative* Paula Omer NP - 02/16/2022 6:27 PM EDT Refilled the Topamax for him. To clarify- he has not run out of it or missed doses, correct? * Carlo Alonso LPN - 02/16/2022 6:08 PM EDT The patient's mother Dania left a voicemail requesting refills of Topamax. Script was sent in June for 1 year so I advised her that I would call the pharmacy. Per the pharmacy the script was not filled from June and is now so a new script is needed. I pended the prescription. documented in this encounterFox Chase Cancer [id number] History of Present illness Narrative* Marquita Downing CNP - 01/06/2022 2:00 PM EDT Chief Complaint Patient presents with Follow-up Kidney Stone HPI: 56 y.o. male known to the urology department for management of kidney stones. 55 [address] male [address] [facility] urology department for management of kidney stones. He underwent bilateral ureteroscopy with laser lithotripsy x 2 for treatment of bilateral large renal stones (04/2021). He feels well. Denies abdominal/flank pain or hematuria. Denies interim infections. ROS: Nurse Note: Review of Systems Constitutional: Negative. HENT: Negative. Eyes: Negative. Respiratory: Negative. Cardiovascular: Negative. Gastrointestinal: Negative. Endocrine: Negative. Genitourinary: Negative. Musculoskeletal: Negative. Skin: Negative. Allergic/Immunologic: Negative. Neurological: Negative. Hematological: Negative. Psychiatric/Behavioral: Negative. 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 Current Outpatient Medications Medication Sig Dispense Refill calcium acetate - Phos Binder 667 MG capsule Take 1,334 mg by mouth Every other day. CALCIUM PO take 1 Tab by mouth 0900 every other day. Cholecalciferol (Vitamin D3) 50 MCG (1999 UT) tablet Take 1 tablet by mouth every Tuesday, Tuesdayand Tuesday. (Patient taking differently: Take 2,000 Units by mouth every Tuesday, Tuesday and Tuesday. 100 mg M W F) cloBAZam 10 MG tablet 25 mg 2 times daily. hydroCHLOROthiazide 12.5 MG capsule Take 1 capsule by mouth daily. 90 capsule 3 hydroCHLOROthiazide 12.5 MG capsule Take 1 capsule by mouth daily. lamoTRIgine 100 MG tablet Take 0.5 tablets by mouth 2 times daily. lamoTRIgine 200 MG tablet Take 0.5 tablets by mouth 2 times daily. 1 bid Please use the same manufacture. 180 tablet 1 lamoTRIgine 200 MG tablet Take 1 tablet by mouth 2 times daily. LORazepam 1 MG Tab take 1 tablet by mouth every 6 hours as needed for Seizures (one pill if drop attack two days in a row).. 10 tablet 0 Marlton 3 1000 MG capsule Take 2 g by mouth daily. Marlton-3 Fatty Acids 1000 MG capsule Take 1 capsule by mouth 2 times daily. ondansetron 4 MG Tab Dispersible tablet Take 1 tablet by mouth every [address] on tongue 15 tablet 0 potassium citrate 10 MEQ (1080 MG) Tab CR Take 1 tablet by mouth 3 times daily. 270 tablet 3 potassium citrate 10 MEQ (1080 MG) Tab CR Take 1 tablet by mouth Three times a day. topiramate 200 MG tablet 200 mg 2 times daily. topiramate 200 MG tablet Take 200 mg by mouth Twice daily. No current facility-administered medications for this visit. family history includes Cancer in his father; Heart Disease - Other in his father; Kidney Disease in his father. Past Medical History: Diagnosis Date At risk for falls history drop down seizures Epilepsy with intractable epilepsy drop down seizures has vns stimulator implanted Renal disease kidney stones Seizures Past Surgical History: Procedure Laterality Date CYSTOURETHROSCOPY W/ URETEROSCOPY/PYELOSCOPY W/ LITHOTRIPSY Bilateral 04/23/2021 Laterality: Bilateral; Surgeon: Joseph Singh MD; Location: [facility] CYSTOURETHROSCOPY W/ URETEROSCOPY/PYELOSCOPY W/ LITHOTRIPSY INCL STENT INSERTION Bilateral 04/09/2021 Laterality: Bilateral; Surgeon: Joseph Singh MD; Location: [facility] OR INSERTION NEUROSTIMULATOR ELECTRODE & GENERATOR CRANIAL NERVE (EG VAGUS) OPEN N/A 03/03/2018 Laterality: N/A; Surgeon: Riley Rubi DO; Location: [facility] MAIN OR ANALYSIS/PROGRAMMING NEUROSTIMULATOR GENERATOR SYSTEM N/A 03/03/2018 Laterality: N/A; Surgeon: Riley Rubi DO; Location: [facility] MAIN OR COLONOSCOPY DIAGNOSTIC 2017 EYE SURGERY Social History Socioeconomic History Marital status: Single Spouse name: Not on file Number of children: Not on file Years of education: Not on file Highest education level: Not on file Occupational History Not on file Tobacco Use Smoking status: Current Every Day Smoker Packs/day: 0.25 Types: Cigarettes Smokeless tobacco: Never Used Substance and Sexual Activity Alcohol use: No Drug use: No Sexual activity: Not on file Other Topics Concern Not on file Social History Narrative Not on file Social Determinants of Health Financial Resource Strain: Not on file Food Insecurity: Not on file Transportation Needs: Not on file Physical Activity: Not on file Stress: Not on file Social Connections: Not on file Intimate Partner Violence: Not on file Housing Stability: Not on file Physical Exam: Resp 18 Ht 1.727 m (5' 8 ) Wt 81.6 kg (180 lb) SpO2 98% BMI 27.37 kg/m Smoking Status Current Every Day Smoker Body mass index is 27.37 kg/m . Constitutional: Appears well, no acute distress. Cardiovascular: Regular rate and rhythm. No lower extremity edema. Pulmonary: Respirations even and unlabored. Lungs clear to auscultation. Abdomen: Soft, non-tender. Bowel sounds active x 4. No CVA/suprapubic tenderness noted. Musculoskeletal: All major joints are without swelling, erythema, or bony deformity. Normal range of motion of all major joints. Skin: Warm, dry and intact. Neuro: No sensory or motor deficits. Assessment/Plan: 1. Kidney stone Urinalysis negative. He did not have KUB done as planned. Renal ultrasound October 2021 was negative for hydronephrosis; no stones were identified. Continue stone prevention measures. Follow up annually for stone surveillance. KUB ordered. Patient was advised to call with any questions or concerns. If symptoms worsen patient was advised to follow up in our office or the Emergency Dept. Benefits, Risks, Contraindications, and Complications of recommended treatments were explained the patient understands and agrees to proceed with plan. * Maddy Tom - 01/06/2022 2:00 PM EDT Nurse Note: Review of Systems Constitutional: Negative. HENT: Negative. Eyes: Negative. Respiratory: Negative. Cardiovascular: Negative. Gastrointestinal: Negative. Endocrine: Negative. Genitourinary: Negative. Musculoskeletal: Negative. Skin: Negative. Allergic/Immunologic: Negative. Neurological: Negative. Hematological: Negative. Psychiatric/Behavioral: Negative. Nursing Assessment: Physical Exam 6 month Follow up for Kidney Stone Denies all pain No urinary complaints Lab Results Component Value Date APPEARANCE clear 01/06/2022 COLOR yellow 01/06/2022 SPECIFICGRAV 1.020 01/06/2022 BLOOD neg 01/06/2022 PH 7.0 01/06/2022 PROTEIN neg 01/06/2022 UROBILINOGEN 0.2 01/06/2022 NITRITE neg 01/06/2022 LEUKOCYTE neg 01/06/2022 LEUKOCESTUR TRACE (A) 10/28/2021 documented in this encounterBlanchard Valley [facility] System05-11-2022 History of Present illness Narrative* Vandana Ryan MD - 12/30/2021 9:30 AM EDT VNS interrogated and checked for battery life. Analysis above and beyond time in clinic with JAVI Omer. 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 Rivera in clinic with JAVI Omer Last followed Dr. Rivera 06/24/21 Mr Moore presents for evaluation for his refractory Florian Gastaut epilepsy. He has had a sudden uptick in his drop attacks. Upon intensive questioning it turns out that the pharmacy filled his Onfi from a different attic blower last month - just before his increase in seizures. I have increased the dosing of the Onfi and we and advanced his VNS settings. We will continue to monitor him clinically at this time 12/25/21 encounter with patient and need for refills It looks like Dr. Rivera did increase his dose to 30 mg total twice a day at his last visit in addition to adjusting his VNS settings. The patient is only taking the 25 mg and did not start the higher dose apparently. I will refill the 25 mg for one month then we can discuss the change in dosing again at his follow up appointment. Here to discuss today the need for 30 mg BID or 25 mg BID HISTORY Year of Onset: 1980 Seizure description from patient loc Tongue/Cheek lacerations n Bowel/Bladder Incontinence n Seizure description from by standers drop attack Current frequency of seizures : sudden uptick in May. Onfi attic blower changed at that time Current Medications ltg, tpm, onfi, ONFI 10 MG TABLETS (2.5 TABLETS) BID TOPAMAX 200 MG BID LAMICTAL 200 MG BID LAMICTAL 100 MG ( 1/2 TABLET) 50 MG BID TOTAL OF LAMICTAL 250 MG BID Medications tried: ltg, pht, onfi, pht, VPA (tremor) Current medication side effects potentially limiting medication management: 14 AEP Depression screening as significant QOL impact in PWE: NDDIE 11 Medication regimen adherence excellent Family history of seizures n Reproductive counseling: male Folic Acid male Safety counseling: does not drive. Discussed shower chair/bath given falls SUDEP counseling: deferred EEG: primary generalized with drop attacks. Epilepsy syndrome: LGS Surgical Candidacy LGS VNS Candidacy in place- INTERROGATED TODAY Advanced VNS programming Danette Moore is a 56 y.o. (: 1965) male who presents today for: HEALTH MAINTANENCE: Health Maintenance Due Topic Date Due Pneumococcal Vaccine: Pediatrics (0 to 5 Years) and At-Risk Patients (6 to 64 Years) (1 - PCV) Never done Zoster Vaccines (1 of 2) Never done Cholesterol Screening (Lipid Panel) Never done Colorectal Cancer Screening: Colonoscopy Never done HIV Screening Never done Hepatitis C Screening Never done Social Influencers of Health Screening Never done Medicare Annual Wellness Visit Never done Depression Screening 10/29/2021 SUBJECTIVE: HPI Review of Systems Trouble sleeping: No Weight change: No Double vision: No Ringing in your ears: No Shortness of breath: No Constipation: No Loss of bladder control: No Change in hair/nails: No Muscle cramps: No Depression: No Easy bruising/bleeding: No Falling down: No Numbness: No Vertigo: No Related to the reason for your visit today, what would you like the doctor to know about anything you identified above? OBJECTIVE: Visit Vitals BP 120/73 (BP Location: Right arm, Patient Position: Sitting, BP Cuff Size: Adult) Pulse 62 Resp 22 Wt 81.9 kg (180 lb 9.6 oz) BMI 26.67 kg/m Smoking Status Current Every Day Smoker BSA 1.98 m BP Readings from Last 3 Encounters: 12/30/21 120/73 06/24/21 125/79 10/29/20 127/66 Wt Readings from Last 3 Encounters: 12/30/21 81.9 kg (180 lb 9.6 oz) 06/24/21 77.1 kg (170 lb) 10/29/20 83.5 kg (183 lb 15.9 oz) Physical Exam: Physical Exam Mental status: intact for orientation, language, recent and remote memory, fund of knowledge and concentration based on conversation Gait: no assistive devices, no circumduction, normal stance and step, arm swing, no ataxia MEDICATION: Outpatient Encounter Medications as of 12/30/2021 Medication Sig Dispense Refill acetaminophen (TYLENOL ORAL) PRN calcium acetate,phosphat bind, (PHOSLO) 667 mg capsule Take 1,334 mg by mouth every other day. cholecalciferol (VITAMIN D-3) 50 mcg (2,000 unit) tablet Take 2,000 Units by mouth 3 (three) times a week. cloBAZam (ONFI) 10 mg tablet Take 2.5 tablets (25 mg) twice a day 150 tablet 2 fish oil concentrate (OMEGA-3) 300-1,000 mg capsule Take 2 g by mouth daily. hydroCHLOROthiazide (MICROZIDE) 12.5 mg capsule Take 1 capsule by mouth 1 (one) time each day. lamoTRIgine (LaMICtal) 100 mg tablet TAKE 1/2 TABLET BY MOUTH TWICE A DAY 90 tablet 3 lamoTRIgine (LaMICtal) 200 mg tablet TAKE ONE TABLET BY MOUTH TWICE A DAY 180 tablet 3 LORazepam (ATIVAN) 1 mg tablet 1 tab if drop down attack,2 days in a row potassium citrate (UROCIT-K) 10 mEq (1,080 mg) CR tablet Take 1 tablet by mouth 3 (three) times a day. topiramate (TOPAMAX) 200 mg tablet Take 1 tablet (200 mg total) by mouth 2 (two) times a day. 60 each 11 [DISCONTINUED] cloBAZam (ONFI) 10 mg tablet Take 2.5 tablets (25 mg) twice a day 150 tablet 2 [DISCONTINUED] cloBAZam (ONFI) 20 mg tablet Take 1.5 tablets (30 mg total) by mouth 2 (two) times aday. Max Daily Amount: 60 mg 90 each 5 [DISCONTINUED] flu vacc [id number] 6mos up,PF, 60 mcg (15 mcg x 4)/0.5 mL syringe (Patient not taking: Reported on 12/30/2021) No facility-administered encounter medications on file as of 12/30/2021. ALLERGIES: No Known Allergies IMMUNIZATION HISTORY: Immunization History Administered Date(s) Administered Moderna SARS-CoV-2 COVID-19, mRNA, LNP-S, preservative free 11/10/2020, 12/08/2020, 07/29/2021 SOCIAL HISTORY: Social History Tobacco Use Smoking status: Current Every Day Smoker Packs/day: 0.25 Smokeless tobacco: Never Used Vaping Use Vaping Use: Never used Substance Use Topics Alcohol use: Not Currently Drug use: Never PAST SURGICAL HISTORY: Past Surgical History: Procedure Laterality Date COLONOSCOPY 07/22/2020 OTHER SURGICAL HISTORY Insertion of vagal nerve stimulato OTHER SURGICAL HISTORY VNS implant OTHER SURGICAL HISTORY broken right arm as child FAMILY HISTORY: Family History Problem Relation Name Age of Onset Hypertension Mother Hyperlipidemia Father Other (myocardial infarction) Father Other (family history of cancer) Father LABORATORY: No visits with results within 3 Month(s) from this visit. 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 MCNAIR [place]. WILL NO LONGER FOLLOW DR. RIVERA. Paula Omer APRN, MOLDER-C, MSCN documented in this encounterFox Chase Cancer [id number] History of Present illness Narrative* Carlo Alonso LPN - 12/25/2021 5:16 PM EDT I called the pharmacy and they were able to process the prescription and it will be ready for pick-up on Tuesday. I left a voicemail for the patient's mother notifying her and notified the patient. * Paula Omer NP - 12/25/2021 4:17 PM EDT It looks like Dr. Rivera did increase his dose to 30 mg total twice a day at his last visit in addition to adjusting his VNS settings. The patient is only taking the 25 mg and did not start the higher dose apparently. I will refill the 25 mg for one month then we can discuss the change in dosing again at his follow up appointment. * Carlo Alonso LPN - 12/24/2021 10:36 AM EDT I spoke to the patient's mother Dania, Clobazam needs a prior auth but there is some confusion onhow much of the medication the patient is supposed to take. Patient has been on clobazam 10 mg 2.5 tablets per day. 5 refills of this medication were sent in on 06/24/2021, however 5 refills on 20 mg1.5 tablets bid were sent in in June as well. What dosage should the patient be taking? documented in this encounterFox Chase Cancer [id number] History of Present illness Narrative* Carlo Alonso LPN - 12/16/2021 4:03 PM EDT Patient is already scheduled. * Carlo Alonso LPN - 12/15/2021 6:17 PM EDT The patient left a voicemail requesting refills of clobazam. Due for follow-up in January. I am putting this into my inbasket to schedule him for follow-up tomorrow. documented in this encounterFox Chase Cancer [id number] History of Present illness Narrative* Rodney Castillo - 12/04/2021 1:15 PM EDT Nurse Note: Review of Systems Constitutional: Negative. HENT: Negative. Eyes: Negative. Respiratory: Negative. Cardiovascular: Negative. Gastrointestinal: Negative. Endocrine: Negative. Genitourinary: Negative. Musculoskeletal: Negative. Skin: Negative. Allergic/Immunologic: Negative. Neurological: Negative. Hematological: Negative. Psychiatric/Behavioral: Negative. Nursing Assessment: Patient presents today for evaluated dyslipidemia, vitamin D levels. Patient reports new medications per Dr Gonzalez, Hydrochlorothiazide 12.5mg and Potassium citrate 10 meq. Physical Exam * Inder Banda MD - 12/04/2021 1:15 PM EDT Chief Complaint: Chief Complaint Patient presents with Follow-up evaluated dyslipidemia, vitamin D levels History of Present Illness Danette Moore is a 55 y.o. male who presents today with the following concerns: Follow-up (evaluated dyslipidemia, vitamin D levels) Patient with a history of dyslipidemia, impaired fasting blood glucose as well as bilateral renal stones currently under the care of [facility] is on hydrochlorothiazide along with the potassium citrate, has been managed for neurology services for seizure drop attacks. He does have medical nerve stimulator which is been functioning well. Patient also takes lamotrigine 100 MG by mouth twice a day. His recent medications have been reviewed. His labs have been reviewed. Hemoglobin A1c 6.0%. Patient does have mildly elevated serum sodium level. Lipids are stable. Alkaline phosphatase mildly elevated Heart:Patient denies any exertional chest pain, dyspnea, palpitations, syncope, orthopnea, edema orparoxysmal nocturnal dyspnea. Lung:The patient denies cough, chest pain, dyspnea, wheezing or hemoptysis. Abdomen: The patient denies abdominal or flank pain, anorexia, nausea or vomiting, dysphagia, change in bowel habits or black or bloody stools or weight loss. Extremities:Patient denies low back pain or painful or reduced range of motion of the back. Neurological; patient does have a seizure drop attacks. He will be followed by neurology services. He does have a vagal nerve stimulator in situ Problems discussed today also include: problems updated.HPI comments may also be noted in 'Overview' section on the Problem List and appear at the end of this note under problem summary. 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 Reviewed today. Medications on arrival 12/04/2021 Outpatient Medications Prior to Visit Medication Sig Dispense Refill CALCIUM PO take 1 Tab by mouth 0900 every other day. Cholecalciferol (Vitamin D3) 50 MCG (2000 UT) tablet Take 1 tablet by mouth every Tuesday, Tuesdayand Tuesday. (Patient taking differently: Take 2,000 Units by mouth every Tuesday, Tuesday and Tuesday. 100 mg M W F) cloBAZam 10 MG tablet 25 mg 2 times daily. hydroCHLOROthiazide 12.5 MG capsule Take 1 capsule by mouth daily. 90 capsule 3 LORazepam 1 MG Tab take 1 tablet by mouth every 6 hours as needed for Seizures (one pill if drop attack two days in a row).. 10 tablet 0 [place]-3 Fatty Acids 1000 MG capsule Take 1 capsule by mouth 2 times daily. ondansetron 4 MG Tab Dispersible tablet Take 1 tablet by mouth every [address]. [address] on tongue 15 tablet 0 potassium citrate 10 MEQ (1080 MG) Tab CR Take 1 tablet by mouth 3 times daily. 270 tablet 3 topiramate 200 MG tablet 200 mg 2 times daily. lamoTRIgine 100 MG Tab take 0.5 tablets by mouth 2 times daily.. 30 tablet 11 lamoTRIgine 200 MG Tab 1 bid Please use the same manufacture. (Patient taking differently: 100 mg daily. 1 bid Please use the same manufacture.) 60 tablet 11 hydroCODone-acetaminophen 5-325 MG tablet Take 1 tablet by mouth every 4 hours as needed for up to 2 days. 12 tablet 0 No facility-administered medications prior to visit. Nurse Note: Review of Systems Constitutional: Negative. HENT: Negative. Eyes: Negative. Respiratory: Negative. Cardiovascular: Negative. Gastrointestinal: Negative. Endocrine: Negative. Genitourinary: Negative. Musculoskeletal: Negative. Skin: Negative. Allergic/Immunologic: Negative. Neurological: Negative. Hematological: Negative. Psychiatric/Behavioral: Negative. Nursing Assessment: Patient presents today for evaluated dyslipidemia, vitamin D levels. Patient reports new medications per Dr Gonzalez, Hydrochlorothiazide 12.5mg and Potassium citrate 10 meq. Allergies He has No Known Allergies. Family History His family history includes Cancer in his father; Heart Disease - Other in his father; Kidney Disease in his father. Social History He reports that he has been smoking cigarettes. He has been smoking about 0.25 packs per day. He has never used smokeless tobacco. He reports that he does not drink alcohol and does not use drugs. Physical Exam Blood pressure 123/72, pulse 75, temperature 98.5 F (36.9 C), temperature source Temporal, weight 81.6 kg (180 lb), SpO2 96 %., Body mass index is 27.37 kg/m . Constitutional: He appears stable Head: Normocephalic and atraumatic. Eyes: Reactive pupils, no conjunctival injection, no jaundice. Ears: Normal TMs, normal external ear and ear canal. Nose: No nasal congestion/bogginess, no sinus tenderness Mouth/Throat: Moist mucous membranes. No pharyngeal erythema Neck: Neck supple. Thyroid not enlarged. No anterior cervical LAD. Cardiovascular: No carotid bruits. Heart with regular rhythm, normal heart sounds. Pulmonary/Chest: Effort normal, breath sounds normal. Musculoskeletal: No joint deformity of hands, neck, or knees noted. Good ROM of all visible joints during exam. Gait & balance normal on observation within exam room. Psychiatric: Mood and affect normal. Judgment normal. Ordered thought content. Results for orders placed or performed in visit on 10/28/21 MAGNESIUM Result Value Ref Range MAGNESIUM 1.9 1.6 - 2.3 MG/DL CBC, EDIF, PLATELET Result Value Ref Range WBC (WHITE BLOOD COUNT) 8.5 3.6 - 11.0 10*3/uL RBC 3.98 (L) 4.0 - 6.1 10*6/uL HEMOGLOBIN (HGB) 12.9 (L) 14.0 - 18.0 G/DL HEMATOCRIT (HCT) 38.9 (L) 42.0 - 52.0 % MEAN CELL VOLUME 97.6 80.0 - 100.0 FL Mean Cell HGB 32.5 26.0 - 35.0 PG MEAN CELL HGB CONCENTRATION 33.3 27.0 - 37.0 G/DL RBC DISTRIBUTION 15.1 (H) 11.5 - 14.5 % PLATELET COUNT 355 130.0 - 400.0 10*3/uL MEAN PLATELET VOLUME 7.6 7.4 - 11.0 FL DIFFERENTIAL TYPE AUTO DIFF % NEUTROPHILS 56.5 37.0 - 75.0 % LYMPHOCYTE 33.3 20.0 - 55.0 % MONOCYTE % 8.1 0.0 - 10.0 % EOSINOPHIL % 1.7 0.0 - 11.0 % BASOPHIL % 0.4 0.0 - 2.0 % Absolute Neutrophil Count 4.8 1.4 - 6.5 10*3/uL LYMPHOCYTES, ABSOLUTE 2.80 1.2 - 3.4 10*3/uL MONOCYTES, ABSOLUTE 0.7 0.0 - 0.7 10*3/uL ABSOLUTE EOSINOPHIL COUNT 0.10 0.0 - 0.7 10*3/uL ABSOLUTE BASOPHIL COUNT 0.0 0.0 - 0.2 10*3/uL RENAL FUNCTION PANEL Result Value Ref Range GLUCOSE 95 70 - 100 MG/DL BUN 19 7 - 20 MG/DL CREATININE SERUM 0.96 0.66 - 1.25 MG/DL SODIUM 136 136 - 145 MMOL/L POTASSIUM 3.7 3.5 - 5.1 MMOL/L CHLORIDE 105 98 - 107 MMOL/L CARBON DIOXIDE (CO2) 23 22 - 30 MMOL/L ALBUMIN 3.7 3.5 - 5.0 G/dl CALCIUM 8.7 8.4 - 10.2 MG/DL PHOSPHORUS 3.5 2.5 - 4.5 MG/DL ESTIMATED GFR, NON AMER 86 ml/min/1.73sq.m ESTIMATED GFR, 104 ml/min/1.73sq.m GFR COMMENT Average GFR for 50-59 years old = 93. URINE MICROSCOPIC Result Value Ref Range WBC, URINE NEGATIVE NEGATIVE /HPF RBC, URINE NEGATIVE NEGATIVE /HPF Epithelial Cells UA NONE /HPF Mucus NEGATIVE NEGATIVE BACTERIA, URINE NEGATIVE NEGATIVE CRYSTALS, URINE NONE NONE CASTS, URINE NONE NONE /LPF COMMENT, URINE CULTURE CRITERIA NOT MET, NO CULTURE PERFORMED. URINE PROTEIN/CREA RATIO, RANDOM Result Value Ref Range PROTEIN MG/DL-URINE 7 <10 MG/DL CREATININE, MG/DL, URINE 27.0 MG/DL PROTEIN/CREAT RATIO, URINE 0.3 URINALYSIS, MACRO Result Value Ref Range COLOR, URINE YELLOW YELLOW APPEARANCE, URINE CLEAR CLEAR Specific [place], Urine 1.015 1.010 - 1.025 PH URINE 7.0 5.0 - 7.0 PROTEIN, URINE NEGATIVE NEGATIVE mg/dl GLUCOSE, URINE NEGATIVE NEGATIVE mg/dl KETONES, URINE NEGATIVE NEGATIVE mg/dl BILIRUBIN, URINE NEGATIVE NEGATIVE BLOOD, URINE DIPSTICK NEGATIVE NEGATIVE NITRITES, URINE NEGATIVE NEGATIVE UROBILINOGEN, URINE 0.2 0.2 - 1.0 E.U./dL LEUKOCYTE ESTERASE, URINE TRACE (A) NEGATIVE SODIUM, RANDOM URINE Result Value Ref Range SODIUM, URINE RANDOM 18 MMOL/L Assessment/Plan Problem List Items Addressed This Visit Digestive Vitamin D deficiency; patient vitamin D has been stable. Continue current therapy. I would recommend the patient to have a repeat vitamin D evaluation in February 2022 Relevant Orders VITAMIN D (25-HYDROXY,TOTAL) Other Visit Diagnoses IFG (impaired fasting glucose) - Primary low, her diet recommended. We will follow clinically. Recommend patient to have hemoglobin A1c evaluation in 12 weeks. His hemoglobin is mildly low at 12.9 g/dL Relevant Orders CBC, EDIF, PLATELET CHEM 7 (LYTES,BUN,CREA,GLUC) HEMOGLOBIN A1C Dyslipidemia Which is recommended. Continue current therapy. His lipids are controlled well. 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 He is been seen by a neurologist in [place]. Patient would like to change his neurologist due to travel restrictionsas well as difficulty to have an access at the given moment. The patient will be referred to local neurology group will be managing his medications as well as a vagal neurostimulator device interrogations. Relevant Medications lamoTRIgine 200 MG tablet Other Relevant Orders AMB REFERRAL TO NEUROLOGY Bilateral renal stones and continue hydrochlorothiazide along with the potassium citrate. [facility] recommended we will follow clinically. Screening PSA (prostate specific antigen) APS evaluation recommended. Relevant Orders PSA, SCREENING The documentation within this encounter was likely aided with DFine, an electronic spanisher device. Please excuse any errors or omissions that may not have been recognized at the time of this encounter. Discontinued Medications: Medications Discontinued During This Encounter Medication Reason hydroCODone-acetaminophen 5-325 MG tablet Therapy completed lamoTRIgine 100 MG Tab Dose adjustment (suppress cancel msg) lamoTRIgine 200 MG Tab Reorder Requested Prescriptions Signed Prescriptions Disp Refills lamoTRIgine 200 MG tablet 180 tablet 1 Sig: Take 0.5 tablets by mouth 2 times daily. 1 bid Please use the same manufacture. There are no Patient Instructions on file for this visit. documented in this encounterBlanchard Valley Health System03-31-2022 History of Present illness Narrative* Radha Gonzalez MD - 11/19/2021 1:00 PM EDT DAILY PROGRESS NOTE Admit Date: (Not on file) Date of Evaluation: :44 PM [facility] IMPRESSION AND PLAN: 55 y/o male with history of seizure and epilepsy is here for CKD care. 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 Will get renal panel. 2) Kidney stone PTH Litholink disclosed high urine pH and low citrate. Continue potassium citrate. Continue Hydrochlorothiazide. 3) HTN: SBP 110s Continue Hydrochlorothiazide. 4) Chronic normocytic anemia H and H 12.9 and 38.9 Last colonoscopy was 2019 Recommend high iron food. Will get CBC, SUBJECTIVE: Patient seen and examined. Chart, medications, labs reviewed. Appointment on 10/28/2021 Component Date Value Ref Range Status MAGNESIUM 10/28/2021 1.9 1.6 - 2.3 MG/DL Final WBC (WHITE BLOOD COUNT) 10/28/2021 8.5 3.6 - 11.0 10*3/uL Final RBC 10/28/2021 3.98 (A) 4.0 - 6.1 10*6/uL Final HEMOGLOBIN (HGB) 10/28/2021 12.9 (A) 14.0 - 18.0 G/DL Final HEMATOCRIT (HCT) 10/28/2021 38.9 (A) 42.0 - 52.0 % Final MEAN CELL VOLUME 10/28/2021 97.6 80.0 - 100.0 FL Final Mean Cell HGB 10/28/2021 32.5 26.0 - 35.0 PG Final MEAN CELL HGB CONCENTRATION 10/28/2021 33.3 27.0 - 37.0 G/DL Final RBC DISTRIBUTION 10/28/2021 15.1 (A) 11.5 - 14.5 % Final PLATELET COUNT 10/28/2021 355 130.0 - 400.0 10*3/uL Final MEAN PLATELET VOLUME 10/28/2021 7.6 7.4 - 11.0 FL Final DIFFERENTIAL TYPE 10/28/2021 AUTO DIFF % Final NEUTROPHILS 10/28/2021 56.5 37.0 - 75.0 % Final LYMPHOCYTE 10/28/2021 33.3 20.0 - 55.0 % Final MONOCYTE % 10/28/2021 8.1 0.0 - 10.0 % Final EOSINOPHIL % 10/28/2021 1.7 0.0 - 11.0 % Final BASOPHIL % 10/28/2021 0.4 0.0 - 2.0 % Final Absolute Neutrophil Count 10/28/2021 4.8 1.4 - 6.5 10*3/uL Final LYMPHOCYTES, ABSOLUTE 10/28/2021 2.80 1.2 - 3.4 10*3/uL Final MONOCYTES, ABSOLUTE 10/28/2021 0.7 0.0 - 0.7 10*3/uL Final ABSOLUTE EOSINOPHIL COUNT 10/28/2021 0.10 0.0 - 0.7 10*3/uL Final ABSOLUTE BASOPHIL COUNT 10/28/2021 0.0 0.0 - 0.2 10*3/uL Final GLUCOSE 10/28/2021 95 70 - 100 MG/DL Final Comment: NORMAL <100 mg/dL PREDIABETES 101-126 mg/dL DIABETES 126 mg/dL or higher BUN 10/28/2021 19 7 - 20 MG/DL Final CREATININE SERUM 10/28/2021 0.96 0.66 - 1.25 MG/DL Final SODIUM 10/28/2021 136 136 - 145 MMOL/L Final POTASSIUM 10/28/2021 3.7 3.5 - 5.1 MMOL/L Final CHLORIDE 10/28/2021 105 98 - 107 MMOL/L Final CARBON DIOXIDE (CO2) 10/28/2021 23 22 - 30 MMOL/L Final ALBUMIN 10/28/2021 3.7 3.5 - 5.0 G/dl Final CALCIUM 10/28/2021 8.7 8.4 - 10.2 MG/DL Final PHOSPHORUS 10/28/2021 3.5 2.5 - 4.5 MG/DL Final ESTIMATED GFR, NON AMER 10/28/2021 86 ml/min/1.73sq.m Final ESTIMATED GFR, 10/28/2021 104 ml/min/1.73sq.m Final GFR COMMENT 10/28/2021 Average GFR for 50-59 years old = 93. Final Comment: Chronic Kidney disease, GFR = <60. Kidney failure, GFR = <15. The GFR estimate is not adjusted for extreme body surface area or acute process, nor has it been validated for women or ethnic groups other than and . WBC, URINE 10/28/2021 NEGATIVE NEGATIVE /HPF Final RBC, URINE 10/28/2021 NEGATIVE NEGATIVE /HPF Final Epithelial Cells UA 10/28/2021 NONE /HPF Final Mucus 10/28/2021 NEGATIVE NEGATIVE Final BACTERIA, URINE 10/28/2021 NEGATIVE NEGATIVE Final CRYSTALS, URINE 10/28/2021 NONE NONE Final CASTS, URINE 10/28/2021 NONE NONE /LPF Final COMMENT, URINE 10/28/2021 CULTURE CRITERIA NOT MET, NO CULTURE PERFORMED. Final PROTEIN MG/DL-URINE 10/28/2021 7 <10 MG/DL Final CREATININE, MG/DL, URINE 10/28/2021 27.0 MG/DL Final NO NORMAL VALUES ESTABLISHED FOR RANDOM SPECIMENS PROTEIN/CREAT RATIO, URINE 10/28/2021 0.3 Final Comment: REFERENCE RANGES <0.2 NORMAL 0.2-3.5 NON-NEPHROTIC >3.5 NEPHROTIC COLOR, URINE 10/28/2021 YELLOW YELLOW Final APPEARANCE, URINE 10/28/2021 CLEAR CLEAR Final Specific [place], Urine 10/28/2021 1.015 1.010 - 1.025 Final PH URINE 10/28/2021 7.0 5.0 - 7.0 Final PROTEIN, URINE 10/28/2021 NEGATIVE NEGATIVE mg/dl Final GLUCOSE, URINE 10/28/2021 NEGATIVE NEGATIVE mg/dl Final KETONES, URINE 10/28/2021 NEGATIVE NEGATIVE mg/dl Final BILIRUBIN, URINE 10/28/2021 NEGATIVE NEGATIVE Final BLOOD, URINE DIPSTICK 10/28/2021 NEGATIVE NEGATIVE Final NITRITES, URINE 10/28/2021 NEGATIVE NEGATIVE Final UROBILINOGEN, URINE 10/28/2021 0.2 0.2 - 1.0 E.U./dL Final LEUKOCYTE ESTERASE, URINE 10/28/2021 TRACE (A) NEGATIVE Final SODIUM, URINE RANDOM 10/28/2021 18 MMOL/L Final LABS Labs-ABGs @ABGROUNDS@ Labs-CBC @CBCBRIEFROUNDS@ Labs-Chem 7([facility]) @[facility]@ Labs-Coags WBC (WHITE BLOOD COUNT) Date Value Ref Range Status 10/28/2021 8.5 3.6 - 11.0 10*3/uL Final 03/09/2021 10.6 3.6 - 11.0 10*3/uL Final 02/20/2018 10.75 (H) 4.23 - 9.07 K/uL Final HEMOGLOBIN (HGB) Date Value Ref Range Status 10/28/2021 12.9 (L) 14.0 - 18.0 G/DL Final 03/09/2021 13.6 (L) 14.0 - 18.0 G/DL Final 02/20/2018 14.0 13.7 - 17.5 g/dL Final HEMATOCRIT (HCT) Date Value Ref Range Status 10/28/2021 38.9 (L) 42.0 - 52.0 % Final 03/09/2021 40.9 (L) 42.0 - 52.0 % Final 02/20/2018 43.0 40.1 - 51.0 % Final PLATELET COUNT Date Value Ref Range Status 10/28/2021 355 130.0 - 400.0 10*3/uL Final 03/09/2021 363 130.0 - 400.0 10*3/uL Final 02/20/2018 388 (H) 163 - 337 K/uL Final SODIUM Date Value Ref Range Status 10/28/2021 136 136 - 145 MMOL/L Final 06/05/2021 140 136 - 145 MMOL/L Final 03/09/2021 141 136 - 145 MMOL/L Final CHLORIDE Date Value Ref Range Status 10/28/2021 105 98 - 107 MMOL/L Final 06/05/2021 111 (H) 98 - 107 MMOL/L Final 03/09/2021 111 (H) 98 - 107 MMOL/L Final BUN Date Value Ref Range Status 10/28/2021 19 7 - 20 MG/DL Final 06/05/2021 16 7 - 20 MG/DL Final 03/09/2021 15 7 - 20 MG/DL Final POTASSIUM Date Value Ref Range Status 10/28/2021 3.7 3.5 - 5.1 MMOL/L Final 06/05/2021 3.4 (L) 3.5 - 5.1 MMOL/L Final 03/09/2021 3.3 (L) 3.5 - 5.1 MMOL/L Final CREATININE SERUM Date Value Ref Range Status 10/28/2021 0.96 0.66 - 1.25 MG/DL Final 06/05/2021 0.85 0.66 - 1.25 MG/DL Final 03/09/2021 1.15 0.66 - 1.25 MG/DL Final POCT GLUCOSE, URINE Date Value Ref Range Status 10/08/2021 neg mg/dL Final 07/10/2021 NEG mg/dL Final GLUCOSE Date Value Ref Range Status 10/28/2021 95 70 - 100 MG/DL Final Comment: NORMAL <100 mg/dL PREDIABETES 101-126 mg/dL DIABETES 126 mg/dL or higher PT Date Value Ref Range Status 02/20/2018 12.6 11.9 - 14.2 sec Final PROTEIN, TOTAL Date Value Ref Range Status 03/09/2021 7.2 6.3 - 8.2 GM/DL Final 01/30/2018 7.7 6.3 - 8.2 GM/DL Final 06/16/2017 7.7 6.3 - 8.2 GM/DL Final ALBUMIN Date Value Ref Range Status 10/28/2021 3.7 3.5 - 5.0 G/dl Final 03/09/2021 3.9 3.5 - 5.0 G/dl Final 01/30/2018 3.9 3.5 - 5.0 G/dl Final AST Date Value Ref Range Status 03/09/2021 12 (L) 15 - 41 IU/L Final 01/30/2018 14 (L) 15 - 41 IU/L Final 06/16/2017 14 (L) 15 - 41 IU/L Final ALT Date Value Ref Range Status 03/09/2021 17 17 - 63 IU/L Final 01/30/2018 16 (L) 17 - 63 IU/L Final 06/16/2017 15 (L) 17 - 63 IU/L Final BILIRUBIN, TOTAL Date Value Ref Range Status 03/09/2021 0.2 0.2 - 1.2 MG/DL Final CALCIUM Date Value Ref Range Status 10/28/2021 8.7 8.4 - 10.2 MG/DL Final 06/05/2021 9.2 8.4 - 10.2 MG/DL Final 03/09/2021 9.0 8.4 - 10.2 MG/DL Final PHOSPHATE, INORGANIC Date Value Ref Range Status 12/23/2009 3.7 2.7 - 4.5 mg/dL Final Comment: SLIGHTLY HEMOLYZED PHOSPHORUS Date Value Ref Range Status 10/28/2021 3.5 2.5 - 4.5 MG/DL Final 06/05/2021 2.9 2.5 - 4.5 MG/DL Final MAGNESIUM Date Value Ref Range Status 10/28/2021 1.9 1.6 - 2.3 MG/DL Final 03/09/2021 1.9 1.6 - 2.3 MG/DL Final 07/30/2014 1.8 1.6 - 2.6 mg/dL Final Lab Results Component Value Date CREATURINE 27.0 10/28/2021 CREATSERUM 0.96 10/28/2021 BUN 19 10/28/2021 SODIUM 136 10/28/2021 POTASSIUM 3.7 10/28/2021 CHLORIDE 105 10/28/2021 CO2 23 10/28/2021 ROS: Constitution: No fever, no chill HEENT: No headache, no sinus issues CV: No chest pain, no palpitation Lung: No cough, No SOB Abd: No diarrhea, no constipation Neuro: No seizure, no loss of consciousness Heme: No bleeding, no bruise PHYSICAL EXAM: Wt Readings from Last 3 Encounters: 11/19/21 83.7 kg (184 lb 8 oz) 10/08/21 81.2 kg (179 lb) 09/04/21 80.2 kg (176 lb 12.8 oz) Temp Readings from Last 3 Encounters: 09/04/21 98.3 F (36.8 C) (Temporal) 06/09/21 97.7 F (36.5 C) (Temporal) 04/23/21 97.3 F (36.3 C) (Temporal) BP Readings from Last 3 Encounters: 11/19/21 117/70 10/08/21 140/78 09/04/21 128/78 Pulse Readings from Last 3 Encounters: 11/19/21 68 10/08/21 76 09/04/21 64 Gen: NAD, lying in bed, conversant HEENT: Atraumatic, PERRLA, moist membrane CV: RRR, nl S1 and S2, no m/g/r Lung: CTAB, no wheezing, no crackle Abd: +BS, nontender, no distended Ext: No rash, no clubbing, no cyanosis. No edema. Neuro: CNII-XII grossly intact, 5/5 strength, normal tone Skin: Warm and dry documented in this encounterBlanchard Valley Health System03-31-2022 History of Present illness Narrative* Carlo Alonso LPN - 11/19/2021 11:39 AM EDT I spoke to Dania, she will talk to Danette and then call me back with the [facility]. * Carlo Alonso LPN - 11/19/2021 11:24 AM EDT The patient's mother Dania left a voicemail returning call to schedule an appointment for Danette Pride. documented in this encounterFox Chase Cancer [id number] History of Present illness Narrative* Carlo Alonso LPN - 11/18/2021 12:13 PM EDT I spoke to the patient's mother Dania, he has VNS. She will call back to schedule him. He is currently driving. Lamictal 100 mg was prescribed 4 months ago but both scripts were sent in 1 year ago for 1 year andwere most likely being filled from that script. documented in this encounterFox Chase Cancer [id number] History of Present illness Narrative* Liset Thorpe - 04/15/2021 2:00 PM EDT Nurse Note: Review of Systems Genitourinary: Positive for dysuria and hematuria. Negative for difficulty urinating, frequency, penile pain, testicular pain and urgency. All other systems reviewed and are negative. Nursing Assessment: Physical Exam Patient comes today for stone F/U. Patient has been straining urine & brings some of the urine today but no stone fragments or anything. Patient states he has burning urination. Lab Results Component Value Date APPEARANCE turbid 04/15/2021 COLOR red 04/15/2021 KETONES TRACE 04/15/2021 SPECIFICGRAV >=1.030 04/15/2021 BLOOD LARGE 04/15/2021 PH 6.0 04/15/2021 PROTEIN >=300 04/15/2021 UROBILINOGEN 0.2 04/15/2021 NITRITE neg 04/15/2021 LEUKOCYTE LARGE 04/15/2021 LEUKOCESTUR NEGATIVE 03/09/2021 * Joseph Singh MD - 04/15/2021 2:00 PM EDT HISTORY OF PRESENT ILLNESS 55 y.o. male known to the urology department with a history of kidney stones, now status post ureteroscopy with laser lithotripsy and stent insertion on 04/09/21. He has recovered from the procedure without incident, he reports mild stent discomfort. The most recent CT shows interval placement of bilateral ureteral stents and bilateral lithotripsy has occurred with residual smaller calculi noted in each kidney. CT reviewed, Performed independent interpretation of the CT scan. ASSESSMENT AND PLAN 1. Bilateral kidney stones- We discussed multiple stone treatment options. We thoroughly reviewed the risks and benefits of a second stage ureteroscopy, laser lithotripsy, with possible stent placement which includes but not limited to pain, bleeding, infection, ureteral or kidney damage requiring prolonged stenting or additional procedures. I advised patient that it may take multiple treatments to achieve stone free status. Patient understands that the stone may asymptomatically pass prior to surgery, and therefore no stone may be identified endoscopically. Patient is ready and eager to proceed. Surgery was scheduled today. History No Known Allergies has Adverse effects of medication; Mental retardation, mild (I.Q. 50-70); Seizures; Intractable epilepsy without status epilepticus; Partial epilepsy with impairment of consciousness, intractable, poorly controlled; Encounter for removal of desirae; Skin lesion; Vitamin D deficiency; Encounter for screening for malignant neoplasm of colon; Preop testing; Obesity: body mass index of 30.0-34.9; andKidney stone on their problem list. Current Outpatient Medications Medication Sig Dispense Refill AFLURIA QUADRIVALENT 0.5 ML Suspension Prefilled Syringe ADM 0.5ML IM UTD 0 bisacodyl (Dulcolax) [address] Take As written instructions given. (Patient not taking: Reported on 03/23/2021) 10 tablet 0 CALCIUM PO take 1 Tab by mouth 0900 every other day. Cholecalciferol (Vitamin D3) 50 MCG (2000 UT) tablet Take 1 tablet by mouth every Tuesday, Tuesdayand Tuesday. (Patient taking differently: Take 2,000 Units by mouth every Tuesday, Tuesday and Tuesday. 100 mg M W F) cloBAZam 10 MG tablet 25 mg 2 times daily. hydroCODone-acetaminophen 5-325 MG tablet Take 1 tablet by mouth every 4 hours as needed for up to 2 days. 12 tablet 0 ketorolac 10 MG tablet Take 1 tablet by mouth every 6 hours as needed. Do not take for more than 5 days. (Patient not taking: Reported on 03/23/2021) 15 tablet 0 lamoTRIgine 100 MG Tab take 0.5 tablets by mouth 2 times daily.. 30 tablet 11 lamoTRIgine 200 MG Tab 1 bid Please use the same manufacture. 60 tablet 11 LORazepam 1 MG Tab take 1 tablet by mouth every 6 hours as needed for Seizures (one pill if drop attack two days in a row).. 10 tablet 0 magnesium citrate 1.745 GM/30ML Solution Take as written instructions (Patient not taking: Reportedon 03/23/2021) 4 Bottle 0 Multiple Vitamins-Minerals (AIRBORNE GUMMIES PO) Take by mouth. [place]-3 Fatty Acids 1000 MG capsule Take 1 capsule by mouth 2 times daily. ondansetron 4 MG Tab Dispersible tablet Take 1 tablet by mouth every [address]. [address] on tongue (Patient not taking: Reported on 03/23/2021) 15 tablet 0 oxybutynin 5 MG tablet Take 1 tablet by mouth 3 times daily as needed (bladder spasm/urinary frequency). 30 tablet 1 peg 3350 w/electrolytes (Golytely) oral solution ONE DAY before Colonoscopy starting at 9 am drink 1 glassful 8 oz every hour to finish by 5am the day of procedure. (Patient not taking: Reported on 03/23/2021) 4 L 0 phenazopyridine 100 MG tablet Take 1 tablet by mouth 3 times daily as needed for Pain for up to 3 days. 9 tablet 0 Tamsulosin HCl 0.4 MG capsule Take 1 capsule by mouth daily. Until stone passed (Patient not taking: Reported on 03/23/2021) 10 capsule 0 topiramate 200 MG tablet 200 mg 2 times daily. No current facility-administered medications for this visit. family history includes Cancer in his father; Heart Disease - Other in his father; Kidney Disease in his father. Past Medical History: Diagnosis Date At risk for falls history drop down seizures Epilepsy with intractable epilepsy drop down seizures has vns stimulator implanted Renal disease kidney stones Seizures Past Surgical History: Procedure Laterality Date CYSTOURETHROSCOPY W/ URETEROSCOPY/PYELOSCOPY W/ LITHOTRIPSY INCL STENT INSERTION Bilateral 04/09/2021 Laterality: Bilateral; Surgeon: Joseph Singh MD; Location: [facility] OR INSERTION NEUROSTIMULATOR ELECTRODE & GENERATOR CRANIAL NERVE (EG VAGUS) INCISIONAL N/A 03/03/2018 Laterality: N/A; Surgeon: Riley Rubi DO; Location: [facility] MAIN OR ANALYSIS/PROGRAMMING NEUROSTIMULATOR GENERATOR SYSTEM N/A 03/03/2018 Laterality: N/A; Surgeon: Riley Rubi DO; Location: [facility] MAIN OR COLONOSCOPY DIAGNOSTIC 2017 EYE SURGERY Social History Tobacco Use Smoking Status Current Every Day Smoker Packs/day: 0.25 Types: Cigarettes Smokeless Tobacco Never Used Social History Substance and Sexual Activity Alcohol Use No Physical Examination: Vital Signs: Smoking Status Current Every Day Smoker Constitutional: Oriented to person, place, and time. Appears well developed and well nourished. Eyes: conjunctiva/corneas clear, normal vision Ears/Nose/Mouth Eyes -EOMI. Ears - External normal ear. Hearing normal. Mouth - Lips normal color. Head/Neck: Face symmetrical, trachea midline, Head - Normocephalic. symmetrical. Normal ROM, neck supple. Pulmonary/chest: Normal respiratory effort, non-labored breathing. Abdominal/GI: Soft, non-tender, no organomegaly. Bowel sounds normal. Cardiovascular Normal rate and regular rhythm. No Murmurs or Rubs. Radial Pulses Normal. Circulation Normal. Neurologic: Alert and oriented x3. No focal neurological deficits noted. Extremities: No clubbing, cyanosis, or edema noted, no calf tenderness bilaterally. Skin: Warm and dry.Normal turgor, well-hydrated, no rashes noted. Psych: Normal mood and affect. Behavior is normal. documented in this [facility]08-19-2021 Nurse Note* Johana Cai RN - 04/09/2021 4:05 PM EDT [facility] for transport home. Patient has all belongings at this time. Patient discharged in stable condition. * Johana Cai RN - 04/09/2021 3:55 PM EDT Discharge instructions reviewed with patient and mother. All questions and concerns answered at this time. Patient states understanding. 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 Patient given supplies to strain urine and collect stones. * Johana Cai RN - 04/09/2021 3:44 PM EDT IV removed per policy. Patient getting dressed with assistance from mother at this time. Patient denies any nausea patient states pain is eased and is tolerable. * Johana Cai RN - 04/09/2021 3:40 PM EDT Patient ambulated to bathroom independently at this time patient able to void without issue. Urine light red no clots noted * Johana Cai RN - 04/09/2021 3:14 PM EDT Patient provided with snack of applesauce and water at this time. Patient states pain is a moderatepain but states is tolerable. Patient denies any nausea. * Li Alex RN - 04/09/2021 3:14 PM EDT Discharged from PACU in stable condition at this time. Transported via cart to [facility] 14. Cart placed in lowest position. Call light within reach. Pulse ox monitor on pt with alarms set. Report given to CRISTO Phelan. * Nessa Lee RN - 04/09/2021 2:49 PM EDT Transferred to PACU via bed with this nurse and ROGERS Singh. Bedside report given to CRISTO Jefferson * Nessa Lee RN - 04/09/2021 2:25 PM EDT OR room Temp 64.6 OR room humidity 58 documented in this [facility]08-19-2021 Miscellaneous Notes* Op Note - Joseph Singh MD - 04/09/2021 2:48 PM EDT DATE: 04/09/2021 Patient: Danette Moore Pre-Op Dx: Bilateral Kidney stones Post-Op Dx: Same Procedure: 1. Bilateral ureteroscopy, laser lithotripsy, stent insertion 2. Interpretation of bilateral retrograde pyelograms Anesthesia: General Surgeon: Surgeon(s) and Role: * Joseph Singh MD - Primary COMPLICATIONS: None. BLOOD LOSS: Minimal PROCEDURE : Patient was introduced into the operating room and placed in dorsal lithotomy position. Patient wassterilely prepped and draped in the standard fashion. Timeout was performed A rigid cystoscope was passed into the patient's bladder. The bladder was inspected. There were no tumors, stones, foreign bodies, or mucosal lesions identified. I passed a Glidewire into the left kidney under fluoroscopic guidance. I then dilated the left ureteral orifice using an 8/10 coaxial dilator. I then passed the flexible scope into the left ureter and kidney. A 12 mm stone was identified. I used a laser to ablate the stone into numerous fragments measuring less than 1 mm. I then used dusting settings to completely ablate the stone. I inspected the remainder of the kidney. There were no residual fragments measuring greater than 500 . I then performed a left retrograde pyelogram which showed mild residual hydronephrosis. A 6 Guamanian variable length stent was placed in the left kidney in standard fashion. Appropriately positioned proximal and distal coils confirmed. I then repeated the same procedure on the patient's right side. A flexible ureteroscope was passed into the right ureter and kidney. A 10 mm stone was identified. I ablated the stone using the laser into multiple fragments measuring less than 1 mm. I then used dusting settings to completely ablate the stone. I inspected the remainder of the kidney.There were no residual fragments measuring greater than 500 . I then performed a right retrograde pyelogram which showed mild residual hydronephrosis. A 6 Guamanian variable length stent was placed in the right kidney in standard fashion. Appropriatelypositioned proximal and distal coils confirmed. The bladder was emptied and the procedure was terminated. The patient tolerated the procedure well. The patient will follow-up in approximately 1 week with a noncontrast CT scan. I believe he passed the small right distal ureteral stone. Joseph Singh MD * Brief Op Note - Joseph Singh MD - 04/09/2021 2:48 PM EDT Please see immediate operative note. documented in this [facility]08-19-2021 Hospital Discharge instructions* Instructions* Johana Cai RN - 04/09/2021 Images from the original note were not included. Laser Lithotripsy: What to Expect at Home Your Recovery Laser lithotripsy is a way to treat kidney stones. This treatment uses a laser to break kidney stones into tiny pieces. For several hours after the procedure you may have a burning feeling when you urinate. You may feelthe urge to go even if you don't need to. This feeling should go away within a day. Drinking a lot of water can help. Your doctor also may advise you to take medicine that numbs the burning. This medicine is called phenazopyridine. It is available by prescription and over the counter. Brand names include Pyridium and Uristat. Your doctor may prescribe an antibiotic. This will help prevent an infection. You may have some blood in your urine for 2 or 3 days. Your doctor may have placed a small tube inside one of your ureters. Ureters are the tubes that connect the kidneys to the bladder. The small tube the doctor may have placed is called a stent. It mayhelp the stone fragments pass through your body. Your doctor may remove the stent in a few weeks. Most stone fragments that are not removed will pass out of the body within 24 hours. But sometimes it can take many weeks. If you have a large stone, you may need to come back for more treatments. This care sheet gives you a general idea about how long it will take for you to recover. But each person recovers at a different pace. Follow the steps below to feel better as quickly as possible. How can you care for yourself at home? Activity Rest as much as you need to after you go home. You may do your regular activities. But avoid hard exercise or sports for about a week or until there is no blood in your urine. Diet You can eat your normal diet after lithotripsy. Continue to drink plenty of fluids. If you have kidney, heart, or liver disease and have to limit fluids, talk with your doctor before you increase the amount of fluids you drink. Medicines Your doctor will tell you if and when you can restart your medicines. You will also be given instructions about taking any new medicines. If you take aspirin or some other blood thinner, ask your doctor if and when to start taking it again. Make sure that you understand exactly what your doctor wants you to do. If you take medicine to stop the burning when you urinate, take it exactly as recommended. Call your doctor if you think you are having a problem with your medicine. This medicine may color your urine orange or red. This is normal. You will get more details on the specific medicine your doctor recommends. If your doctor prescribed antibiotics, take them as directed. Do not stop taking them just because you feel better. You need to take the full course of antibiotics. Be safe with medicines. Read and follow all instructions on the label. ? If the doctor gave you a prescription medicine for pain, take it as prescribed. ? If you are not taking a prescription pain medicine, ask your doctor if you can take acetaminophen(Tylenol). Do not take ibuprofen (Advil, Motrin) or naproxen (Aleve) or similar medicines unless your doctor tells you to. ? Do not take two or more pain medicines at the same time unless the doctor told you to. Many pain medicines have acetaminophen, which is Tylenol. Too much acetaminophen (Tylenol) can be harmful. Heat Take a warm bath. This may soothe the burning. Other instructions Urinate through the strainer the doctor gives you. Save any stone pieces, including those that looklike sand or gravel. Take these to your doctor. This will help your doctor find the cause of your stones. Follow-up care is a church part of your treatment and safety. Be sure to make and go to all appointments, and call your doctor if you are having problems. It's also a good idea to know your test resultsand keep a list of the medicines you take. When should you call for help? Call 911 anytime you think you may need emergency care. For example, call if: You passed out (lost consciousness). You have chest pain, are short of breath, or cough up blood. Call your doctor now or seek immediate medical care if: You have pain that does not get better after you take pain medicine. You have new or more blood clots in your urine. (It is normal for the urine to be pink for a few days.) You cannot urinate. You have symptoms of a urinary tract infection. These may include: ? Pain or burning when you urinate. ? A frequent need to urinate without being able to pass much urine. ? Pain in the flank, which is just below the rib cage and above the waist on either side of the back. ? Blood in the urine. ? A fever. You are sick to your stomach or cannot drink fluids. You have signs of a blood clot in your leg (called a deep vein thrombosis), such as: ? Pain in the calf, back of the knee, thigh, or groin. ? Redness and swelling in your leg. Watch closely for any changes in your health, and be sure to contact your doctor if you have any problems. Where can you learn more? Go to http://www.[email or web address].[email or web address]/patiented. Enter Q239 in the search box to learn more about 'Laser Lithotripsy: What to Expect at Home.' Interested in seeing a video go to [email or web address]/videolibrary to see all video content. Current as of: August 07, 2020 Content Version: 12.9 [employer]. Care instructions adapted under license by your healthcare professional. If you have questions about a medical condition or this instruction, always ask your healthcare professional. [employer] disclaims any warranty or liability for your use of this information. Anesthesia Precautions & Expectations: After anesthesia, rest for [address], drink alcoholic beverages or make any important decisions during this time. General anesthesia may cause a sore throat, jaw discomfort or muscle aches. These symptoms can last for one or two days. * Attachments The following attachments cannot be sent through Care Everywhere. * Ureteral Stent Placement: Post-op (Togolese) [facility] Diagnosis Kidney stone- Primary Calculus of kidney [facility] Diagnosis Kidney stone- Primary Calculus of kidney [facility] Diagnosis Kidney stone Calculus of kidney Kidney stone- Primary Calculus of kidney [facility]* Diagnosis Kidney stone- Primary Calculus of kidney Kidney stone- Primary Calculus of kidney 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* Diagnosis Scalp laceration, initial encounter- Primary Seizure Other convulsions [facility]* Diagnosis Abnormal LFTs Other abnormal blood chemistry 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) documented in this encounter [facility] note* Diagnosis Chronic kidney disease, stage II (mild)- Primary Chronic kidney disease, Stage II (mild) Vitamin D insufficiency Unspecified vitamin D deficiency documented in this encounter [facility]* Diagnosis Subdural hemorrhage- Primary documented in this encounter [facility] note* Diagnosis IFG (impaired fasting glucose)- Primary Impaired fasting glucose Dyslipidemia Other and unspecified hyperlipidemia Vitamin D deficiency Unspecified vitamin D deficiency Leukocytosis, unspecified type 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 Diagnosis Laceration of scalp, initial encounter- Primary documented [facility]* Diagnosis Encounter for staple removal- Primary Encounter for removal of sutures documented [facility]* Diagnosis Sprain of right thumb, unspecified site of digit, initial encounter- Primary documented in this encounter [facility]* Diagnosis Hand pain, right- index and thumb- Primary Pain in limb documented in [facility]* Diagnosis Kidney stone Calculus of kidney documented 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* Diagnosis Right shoulder pain, unspecified chronicity documented in this [facility]* Diagnosis Hand pain, right- index and thumb- Primary Pain in limb Right shoulder pain, unspecified chronicity Tendinopathy of right rotator cuff [facility]* Diagnosis Vitamin B12 deficiency- Primary Other B-complex deficiencies Dyslipidemia Other and unspecified hyperlipidemia Benign hypertension Essential hypertension, benign IFG (impaired fasting glucose) Impaired fasting glucose Elevated erythrocyte sedimentation rate Elevated sedimentation rate Impingement of right shoulder- Primary documented in this encounter [facility]* Diagnosis Impingement of right shoulder- Primary documented in this encounter [facility]* Diagnosis Hypocalcemia- Primary documented [facility]* Diagnosis Adhesive capsulitis of right shoulder Adhesive capsulitis of shoulder Right shoulder pain, unspecified chronicity Impingement of right shoulder- Primary [facility] Diagnosis Impingement of right shoulder Impingement of right shoulder- Primary documented in this encounter [facility]* Diagnosis Impingement of right shoulder- Primary Stiffness of right shoulder joint Adhesive capsulitis of right shoulder Adhesive capsulitis of shoulder [facility] Diagnosis Personal history of colonic polyps- Primary Personal history of colonic polyps [facility] Diagnosis Adhesive capsulitis of right shoulder- Primary Adhesive capsulitis of shoulder documented in [facility]* Diagnosis Benign hypertension- Primary Essential hypertension, benign Dyslipidemia Other and unspecified hyperlipidemia IFG (impaired fasting glucose) Impaired fasting glucose Elevated erythrocyte sedimentation rate Elevated sedimentation rate Other iron deficiency anemia [facility]* Attachments The following attachments cannot be sent through Care Everywhere. * Lacerations: [facility] (Togolese) * Wound Check (Togolese) [facility]* Attachments The following attachments cannot be sent through Care Everywhere. * Stitches and [facility] Removal: General Info (Togolese) [facility]* Attachments The following attachments cannot be sent through Care Everywhere. * Finger Sprain (Togolese) [facility] (n[facility])* Consultation (Routine) - New Request Specialty Diagnoses / Procedures Referred By Boone berumen Referred To Contact Neurology Diagnoses Epileptic drop attack Inder Banda MD [address] [place] [phone] Fabrice Schmidt MD [address] [place] [id number] Referral ID Status Reason Start Date Expiration Date V isits Requested Visits Authorized [id number] New Request 12/04/2021 12/29/2022 1 1 [facility] for referral (narrative)* Consultation (Urgent) - New Request Specialty Diagnoses / Procedures Referred By Boone berumen Referred To Contact Internal Medicine Diagnoses Laceration of scalp, initial encounter Liset Kincaid, PIE [employer] SALES REPRESENTATIVE [address] [place] [address] Inder Banda MD [address] [place] [address] Referral ID Status Reason Start Date Expiration Date V isits Requested Visits Authorized [id number] New Request 10/15/2022 11/09/2023 1 1 [facility] for referral (narrative)* Consultation (Urgent) - New Request Specialty Diagnoses / Procedures Referred By Contac t Referred To Contact Internal Medicine Diagnoses Sprain of right thumb, unspecified site of digit, initial encounter Liset Kincaid APRN-JAVI [address] [place] [address] Inder Banda MD [address] [place] [phone] Referral ID Status Reason Start Date Expiration Date V isits Requested Visits Authorized [id number] New Request 11/15/2022 12/10/2023 1 1 [facility] for visit Narrative* Auth/Cert Specialty Diagnoses / Procedures Referred By Contac t Referred To Contact Diagnoses Kidney stone Kidney stone [N20.0] Procedures ID CYSTO/URETERO W/LITHOTRIPSY &INDWELL STENT INSRT CYSTOURETHROSCOPY W/ URETEROSCOPY/PYELOSCOPY W/ LITHOTRIPSY INCL STENT INSERTION Referral ID Status Reason Start Date Expiration Date Visits Re quested Visits Authorized [id number] 1 1 [employer] [facility] Reason for Referral Status Reason Specialty Diagnoses / Procedures Referred By Contact Referred To Contact New Request Family Medicine Diagnoses Laceration of left eyebrow, initial encounter Aman Quan PA-C [address] [place] [address] Specialty Diagnoses / Procedures Referred By Contac t Referred To Contact Diagnoses Kidney stone Procedures CT ABDOMEN/PELVIS WITHOUT CONTRAST CHG CT SCAN,ABDOMENT AND PELVIS,W/O CONTRAST Aman Rivera CNP [address] [place] [address] Referral ID Status Reason Start Date Expiration Date Visits Re quested Visits Authorized [id number] Closed 04/10/2021 05/04/2022 1 1 Specialty Diagnoses / Procedures Referred By Contac t Referred To Contact Diagnoses 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) Paula Omer, RN SURGERY ICU [address] [phone] Referral ID Status Reason Start Date Expiration Date Visits Re quested Visits Authorized [id number] Closed 1 1 Specialty Diagnoses / Procedures Referred By Contac t Referred To Contact Neurology Diagnoses 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) Paula Omer, RN SURGERY ICU [address] [phone] Seth Mcnair MD [address] [place] [phone] Referral ID Status Reason Start Date Expiration Date Visits Requested Visits Authorized [id number] Authorized Specialty Services Required 01/02/2022 07/01/2022 1 1 Specialty Diagnoses / Procedures Referred By Contac t Referred To Contact Ultrasound Diagnoses Abnormal LFTs Procedures US ABDOMEN RUQ/LIVER/GB Inder Banda MD [address] [place] [address] [facility] [address] [place] [phone] Referral ID Status Reason Start Date Expiration Date V isits Requested Visits Authorized [id number] Auth Not Needed 03/09/2022 04/03/2023 1 1 Referral ID Status Reason Start Date Expiration Date Visits Re quested Visits Authorized [id number] Closed 03/09/2022 04/03/2023 1 1 Specialty Diagnoses / Procedures Referred By Contac t Referred To Contact Physical Therapy Diagnoses Tendinopathy of right rotator cuff Riley Dietz MD [address] [place] [address] [facility] [address] [place] [address] Referral ID Status Reason Start Date Expiration Date V isits Requested Visits Authorized [id number] New Request 02/16/2023 03/12/2024 1 1 Specialty Diagnoses / Procedures Referred By Contac t Referred To Contact Diagnoses Impingement of right shoulder Procedures XR FLUORO ARTHROGRAM SHOULDER RIGHT Riley Dietz MD [address] [phone] Referral ID Status Reason Start Date Expiration Date V isits Requested Visits Authorized [id number] New Request 05/18/2023 06/11/2024 1 1 Specialty Diagnoses / Procedures Referred By Contac t Referred To Contact Diagnoses Adhesive capsulitis of right shoulder Right shoulder pain, unspecified chronicity Procedures CT SHOULDER RIGHT WITH CONTRAST ID CT SCAN OF ARM CONTRAST Riley Dietz MD [address] [phone] Referral ID Status Reason Start Date Expiration Date Visits Re quested Visits Authorized [id number] Closed 05/20/2023 06/13/2024 1 1 Referral ID Status Reason Start Date Expiration Date Visits Re quested Visits Authorized [id number] Closed 05/18/2023 06/11/2024 1 1 Specialty Diagnoses / Procedures Referred By Contac t Referred To Contact Physical Therapy Diagnoses Impingement of right shoulder Stiffness of right shoulder joint Adhesive capsulitis of right shoulder Riley Dietz MD [address] [phone] Hever Abdi, PT [address] [place] [address] Referral ID Status Reason Start Date Expiration Date V isits Requested Visits Authorized [id number] New Request 06/08/2023 07/02/2024 1 1 Scheduling Instructions . Specialty Diagnoses / Procedures Referred By Contac t Referred To Contact Physical Therapy Diagnoses Adhesive capsulitis of right shoulder Mildred Feng PA-C [address] [place] [address] [facility] [address] [facility] [place] [address] Referral ID Status Reason Start Date Expiration Date V isits Requested Visits Authorized [id number] New Request 08/10/2023 09/03/2024 1 1 Discharge Instructions The following attachments cannot be sent through Care Everywhere. * Laceration, Face: Stitches or Tape (Togolese) in this encounter* Instructions* Gloria Harkins RN - 06/03/2020 Learning About Anesthesia What is anesthesia? Anesthesia controls pain. And it keeps all your organs working normally during surgery or another kind of procedure. Anesthesia can relax you. It can also make you sleepy or forgetful. Or it may make you unconscious.It depends on what kind you get. Your anesthesia provider (anesthesiologist or nurse director graphics) will make sure you are comfortableand safe during the procedure or surgery. There are different types of anesthesia. Local anesthesia. This type numbs a small part of the body. Doctors use it for simple procedures. ? You get a shot in the area the doctor will work on. ? You will feel some pressure during the procedure. ? You may stay awake. Or you may get medicine to help you relax or sleep. Regional anesthesia. This type blocks pain to a larger area of the body. It can also help relieve pain right after surgery. And it may reduce your need for other pain medicine after surgery. There are different types. They include: ? Peripheral nerve block. This is a shot near a specific nerve or group of nerves. It blocks pain in the part of the body supplied by the nerve. This is often used for procedures on the hands, arms, feet, legs, or face. ? Epidural and spinal anesthesia. This is a shot near the spinal cord and the nerves around it. It blocks pain from an entire area of the body, such as the belly, hips, or legs. General anesthesia. This type affects the brain and the whole body. You may get it through a small tube placed in a vein (IV). Or you may breathe it in. You are unconscious and will not feel pain. During the surgery, you will be comfortable. Later, you will not remember much about the surgery. What type will you have? The type of anesthesia you have depends on many things, such as: The type of surgery or procedure and the reason you are having it. Test results, such as blood tests. How worried you feel about the surgery. Your health. Your doctor and nurses will ask you about any past surgeries. They will ask about any health problems you may have, such as diabetes, lung or heart disease, or a history of stroke. They will want to know if you take medicine, such as blood thinners. Your doctor may also ask if any family members have had any problems with anesthesia. You will talk with your anesthesia provider about your options. In many cases, you may be able to choose the type of anesthesia you have. What are the risks of anesthesia? Major side effects are not common. But all types of anesthesia have some risk. Your risk depends onyour overall health. It also depends on the type of anesthesia you have and how you respond to it. Serious but rare risks include breathing problems, heart attack, stroke, and reaction to the medicine. Some health conditions increase the risk of problems. Your anesthesia provider will find out about any health problems you have that may affect your care. Your anesthesia provider will closely watch your vital signs during anesthesia and surgery. This includes checking your blood pressure and heart rate. This may help you avoid problems from anesthesia. What can you do to prepare? You will get a list of instructions to help you prepare. Your doctor will let you know what to expect when you get to the hospital, during the surgery, and after. You will get instructions about when to stop eating and drinking. If you take medicine, you will get instructions about what you can and can't take before surgery. You will be asked to sign a consent form that says you understand the risks of anesthesia. Before you do, your anesthesia provider will talk with you about the best type for you and the risks and benefits of that type. Many people are nervous before they have anesthesia and surgery. Ask your doctor about ways to relax before surgery. These may include relaxation exercises or medicine. What can you expect after having anesthesia? Right after the surgery, you will be in the recovery room. Nurses will make sure you are comfortable. As the anesthesia wears off, you may feel some pain and discomfort from your surgery. Tell someone if you have pain. Pain medicine works better if you take it before the pain gets bad. You may feel some of the effects of anesthesia for a while. It takes time for the effects of the medicine to completely wear off. If you had local or regional anesthesia you may feel numb and have less feeling in part of your body. It may also take a few hours for you to be able to move and control your muscles as usual. When you first wake up from general anesthesia, you may be confused. Or it may be hard to think clearly. This is normal. Don't do anything for 24 hours that requires attention to detail. This includes going to work, making important decisions, or signing any legal documents. Other common side effects of anesthesia include: Nausea and vomiting. This does not usually last long. It can be treated with medicine. A slight drop in body temperature. You may feel cold and shiver when you first wake up. A sore throat, if you had general anesthesia. Muscle aches or weakness. Feeling tired. For minor surgeries, you may go home the same day. For other surgeries you may stay in the hospital. Your doctor will check on your recovery from the anesthesia. He or she will answer any questions you may have. Follow-up care is a church part of your treatment and safety. Be sure to make and go to all appointments, and call your doctor if you are having problems. It's also a good idea to know your test resultsand keep a list of the medicines you take. Where can you learn more? Log into your personal health record on [email or web address] and enter V817 in the Education box to learn more about Learning About Anesthesia. Current as of: April 12, 2019 Content Version: 12.6 [employer]. Care instructions adapted under license by your healthcare professional. If you have questions about a medical condition or this instruction, always ask your healthcare professional. [employer] disclaims any warranty or liability for your use of this information. documented in this encounter Assessments Diagnosis Laceration of left eyebrow, initial encounter - Primary Diagnosis Kidney stone - Primary Calculus of kidney Diagnosis Visit for suture removal - P rimary Encounter for removal of sutures Diagnosis Personal history of colonic polyps- Primary Elective surgery Diagnosis Personal history of colonic polyps- Primary Adenomatous polyp of sigmoid colon History of Present Illness * Marquita Downing, JAVI - 07/17/2018 1:00 PM EST Formatting of this note may be different from the original. Chief Complaint Patient presents with New Patient Renal Stones HPI: Patient comes to us today as a new patient referred by Dr. Banda for renal stones. Pt presented to the ER on 05/27/18 with complaints of right flank pain; passed small stone while providing urine sample. He denies abdominal/flank pain, urgency, frequency, dysuria, hematuria, nausea, vomiting, fever, or chills. No previous history of kidney stones. UTI two years ago. No family history of kidney, bladder, or prostate cancer. Father diagnosed with testicular cancer at 44; of unrelated causes. Pt drinks 14oz of poweraid and 1 bottle of water daily. Review of Systems Constitutional: Negative for chills, fever, malaise/fatigue and weight loss. Respiratory: Negative for cough, shortness of breath and wheezing. Cardiovascular: Negative for chest pain, palpitations and leg swelling. Gastrointestinal: Negative for abdominal pain, constipation, diarrhea, heartburn, nausea and vomiting. Genitourinary: Negative for dysuria, flank pain, frequency, hematuria and urgency. Musculoskeletal: Negative for back pain and joint pain. Skin: Negative for rash. Neurological: Positive for dizziness and seizures. Endo/Heme/Allergies: Bruises/bleeds easily. Psychiatric/Behavioral: Negative for depression. The patient is not nervous/anxious. Patient comes to us today as a new patient for follow up on renal stones. He states he passed his stone and now he has blood in his urine and the family doctor wanted it checked out. UA being performed. 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 Current Outpatient Prescriptions Medication Sig Dispense Refill AFLURIA QUADRIVALENT 0.5 ML Suspension Prefilled Syringe ADM 0.5ML IM UTD 0 CALCIUM PO take 1 Tab by mouth 0900 every other day. lamoTRIgine 100 MG Tab take 0.5 tablets by mouth 2 times daily.. 30 tablet 11 lamoTRIgine 200 MG Tab 1 bid Please use the same manufacture. 60 tablet 11 LORazepam 1 MG Tab take 1 tablet by mouth every 6 hours as needed for Seizures (one pill if drop attack two days in a row).. 10 tablet 0 Marl[place]-3 Fatty Acids (FISH OIL) 1000 MG PO CAPS take 1 Cap by mouth 0900 every other day. No current facility-administered medications for this visit. family history includes Cancer in his father; Heart Disease - Other in his father; Kidney Disease in his father. Past Medical History: Diagnosis Date Epilepsy with intractable epilepsy Seizures Past Surgical History: Procedure Laterality Date INSERTION NEUROSTIMULATOR ELECTRODE & GENERATOR CRANIAL NERVE (EG VAGUS) INCISIONAL N/A 03/03/2018 Laterality: N/A; Surgeon: Riley Rubi DO; Location: [facility] MAIN OR ANALYSIS/PROGRAMMING NEUROSTIMULATOR GENERATOR SYSTEM N/A 03/03/2018 Laterality: N/A; Surgeon: Riley Rubi DO; Location: [facility] MAIN OR EYE SURGERY Social History Social History Marital status: Single Spouse name: N/A Number of children: N/A Years of education: N/A Occupational History Not on file. Social History Main Topics Smoking status: Current Every Day Smoker Packs/day: 0.25 Types: Cigarettes Smokeless tobacco: Never Used Alcohol use No Drug use: No Sexual activity: Not on file Other Topics Concern Not on file Social History Narrative No narrative on file Physical Exam: Blood pressure 115/64, pulse 82, height 1.727 m (5' 8 ), weight 84.7 kg (186 lb 12.8 oz), SpO2 98 %. Body mass index is 28.4 kg/m . Constitutional: Appears well, no acute distress. Cardiovascular: Regular rate and rhythm. No lower extremity edema. Pulmonary: Respirations even and unlabored. Lungs clear to auscultation. Abdomen: Soft, non-tender. Bowel sounds active x 4. No CVA/suprapubic tenderness noted. Musculoskeletal: Normal range of motion of all major joints. Skin: Laceration with sutures noted to left eyebrow area. Otherwise warm, dry and intact. Neuro: No sensory or motor deficits. Assessment/Plan: 1. Kidney stone Passed small stone in May; no previous history of stones. No symptoms at this time. We will getKUB today. Unable to provide urine; voided prior to appt. Follow up PRN. - XR ABDOMEN 1 VIEW; Future Patient was advised to call with any questions or concerns. If symptoms worsen patient was advised to follow up in our office or the Emergency Dept. Benefits, Risks, Contraindications, and Complications of recommended treatments were explained the patient understands and agrees to proceed with plan. * Teressa Soto - 07/17/2018 1:00 PM EST Patient comes to us today as a new patient for follow up on renal stones. He states he passed his stone and now he has blood in his urine and the family doctor wanted it checked out. UA being performed. in this encounter* Nakia Olvera PA-C - 07/17/2018 1:40 PM EST Patient presents for suture removal to right eyebrow laceration. Sutures were [facility] at [facility] ED on 07/12/18. Patient denies any problems/concerns. 5 interrupted sutures in right eyebrow laceration are visualized. Wound edges well healed along theentire length of the laceration. No signs of associated infection. Sutures were removed without diffiuclty by nursing staff. On reexamination wound appears well healed. Patient instructed to keep thewound dry for the next 12 hours and observe for any signs of infection. in this encounter* Damir Johnson MD - 05/08/2020 2:53 PM EDT [facility] [address] [facility] [address] [facility] [phone] Danette Moore is a 54 y.o. male being seen on 05/08/20 for Chief Complaint Patient presents with Colonoscopy HPI: PROCEDURALIST ATTESTATION OF OUTPATIENT ELECTIVE CASE DURING COVID PANDEMIC The proposed procedure is outpatient with an expected discharge on the same day as the surgery / procedure. I discussed with the patient that while we practice appropriate precautions consistent withprevailing medical standards, any contact with any person in any setting at this time presents a risk of transmission and contraction of COVID-19. The patient was also informed that COVID-19 testing w ithin 72 hours of the procedure will be required. The patient wishes to proceed. Patient presents today to schedule a surveillance colonoscopy. He had a colonoscopy in 2014 that showed a tubular adenoma with high-grade dysplasia. There was also a tubulovillous adenoma and anothertubular adenoma. He had a repeat colonoscopy in August 2015 which revealed only a hyperplastic polyp. His next colonoscopy was in September 2016. That colonoscopy revealed multiple tubular adenomas and one hyperplastic polyp. He denies any current abdominal pain, nausea, vomiting, diarrhea, or constipation. He denies black or bloody bowel movements. His weight has been relatively stable. He denies a family history of colon cancer. Past Medical History: Diagnosis Date Adenomatous polyp of colon Epilepsy (HCC) Tubulovillous adenoma of colon Past Surgical History: Procedure Laterality Date COLONOSCOPY W/ POLYPECTOMY 10/14/2016 multiple tubular adenoma polyps, one hyperplastic polyp....Alex COLONOSCOPY W/ POLYPECTOMY 08/27/2015 hyperplastic polyp....Alex COLONOSCOPY W/ POLYPECTOMY 04/15/2015 tubular adenoma with high grade dysplasia, tubular adenoma and tubulovillous adenoma polyps....Alex EYE SURGERY 1987 ORTHOPEDIC SURGERY Right fracture arm, repair sigmoid polypectomy with high-grade dysplasia VAGUS NERVE STIMULATOR INSERTION 2017 No Known Allergies Current Outpatient Medications Medication Sig Dispense Refill calcium acetate (PHOSLO) 667 mg capsule Take 1,334 mg by mouth daily. cholecalciferol, vitamin D3, 50 mcg (2,000 unit) Tab Take 2,000 Units by mouth Tuesday, Tuesday, Tuesday . cloBAZam (ONFI) 20 mg tablet Take 40 mg by mouth daily Reasons2 tablets in am, 2 tablets at HS. fish oil-omega-3 fatty acids 300-1,000 mg capsule Take 2 g by mouth daily. lamoTRIgine (LAMICTAL) 100 MG tablet Take 250 mg by mouth 2 (two) times a day . lamoTRIgine (LAMICTAL) 100 MG tablet Take 100 mg by mouth 2 (two) times a day . lamoTRIgine (LAMICTAL) 25 MG tablet Take 50 mg by mouth 2 (two) times a day . topiramate (TOPAMAX) 50 MG tablet Take 200 mg by mouth 2 (two) times a day . No current facility-administered medications for this visit. Social History Tobacco Use Smoking status: Current Every Day Smoker Types: Cigarettes Smokeless tobacco: Former User Tobacco comment: 4-5 cigarettes daily Substance Use Topics Alcohol use: No Drug use: No Family History Problem Relation Age of Onset Testicular cancer Father Heart disease Father REVIEW OF SYSTEMS Pertinent positives are listed in HPI, PMSH, SH, ALL, otherwise all systems reviewed below are negative. The following systems were reviewed: [x] Const (fevers, chills, wt. loss, fatigue) [x] CV (HTN, CP, AVILES, edema, DVT) [x] Resp (SOB, pleurisy, asthma, apnea) [x] GI (N, V, D, C, M, abd pain, appetite) [x] Musc (back pain, joint stiffness, gout) [x] Neuro (seizures, syncope, paralysis) [x] Psych (depression, anxiety) [x] Endo (hot/cold intol, polyuria[DM]) [x] Hem/Lymph (Anemia, LA, bleeding) [x] Allerg/Immun (seasonal, immuniz) [x] Eyes (diplopia, cataracts) [x] ENT/mouth (dysphagia, epistaxis) [x] (dysuria, hematuria) [x] Skin/Breast (moles, rash, lumps, nipple changes) Pertinent Positives: See HPI Pertinent Negatives: See HPI Physical Exam: BP 117/76 Pulse 88 Ht 5' 7 Wt 85.5 kg (188 lb 9.6 oz) SpO2 95% BMI 29.54 kg/m Body mass index is 29.54 kg/m . Constitutional: Well nourished, well developed person in no acute distress. Ambulates without difficulty. Head: Atraumatic and normocephalic. Face: Within normal limits. Eyes: Pupils equal, round, reactive to light. Sclera white. Mouth: Moist mucous membranes, normal dentation. Neck: supple, trachea midline,no masses, no incisions. Lymphatic: No cervical or inguinal lymphadenopathy. Heart: Regular rate and rhythm. Lungs: Clear to auscultation. Abdomen: Soft, non-distended, non-tender, no heptasplenomegaly, no umbilica, incisional, femoral, or inguinal hernias. Pelvis: Stable, non-tender. Skin: Warm, moist, normal skin turgor. Peripheral Vascular: Palapable carotid, radial, and femoral pulses, no peripheral edema. Neuropsych: Alert and oriented, judgement and insight intact. Normal Gait. Assessment: 1. Personal history of colonic polyps No orders of the defined types were placed in this encounter. Plan: Colonoscopy Damir Johnson MD documented in this encounter* Maryana Hare RN - 05/30/2020 11:19 AM EDT Arrival time of 1200 given for procedure at 1330. Questions answered. Reminded to get Covid test this weekend. NPO reinforced, ride arranged. documented in this encounter Instructions * Patient Instructions - Nakia Olvera PA-C - 07/17/2018 2:01 PM EST Staple Removal (No Complication) You were seen today for a suture removal. Your wound is healing as expected. It has healed well enough that the sutures or desirae were ready to be removed. The wound will continue to heal below the surface of the skin for a few months. It is unlikely that you will have any further problem. At this time there is no sign of a wound infection. Signs of a wound infection include: Increasing redness or swelling around the wound Increased warmth of the wound Worsening pain Red streaking lines away from the wound Draining pus Home care Keep the wound clean and dry. Use an adhesive strip, if needed, to keep the wound from getting dirty for the next week. Wash the wound carefully with soap and water daily during the next week. You may shower and bathe as usual. The wound may separate, or split open. If this happens, keep it clean and covered until you follow up or return for a recheck. When exposed to the sun, scars can take on red or brown discoloration. To decrease scar color, protect the area from sun exposure. Use sun block for 6 to 12 months. Follow-up care Follow up with your healthcare provider, or as advised. When to seek medical advice Contact your healthcare provider right away if any of the following occur: Increasing pain in the wound Redness, swelling, or pus coming from the wound Fever of 100.4 F (38 C) or higher, or as directed by your healthcare provider Date Last Reviewed: 05/18/[id number] [employer]. [address] [place] [address], [place] [address]. All rights reserved. This information is not intended as a substitute for professional medical care. Always follow yourhealthcare professional's instructions. in this encounter Summary Purpose Family History No Family History Records FoundNo Family History Records FoundNo Family History Records FoundNo Family History Records FoundNo Family History Records FoundNo Family History Records FoundNo Family History Records Found Advance Directives No Advanced Directives Records FoundDocuments on File Type Date Recorded Patient Recyclable Materials Collector Expl anation Advance Directives and Living Will Documents on File Type Date Recorded Patient Recyclable Materials Collector Expl anation Advance Directives and Livin g Will 06/03/2020 11:35 AM Documents on File Type Date Recorded Patient Recyclable Materials Collector Expl anation Advance Directives and Livin g Will 06/03/2020 11:35 AM Documents on File Type Date Recorded Patient Recyclable Materials Collector Expl anation Power of Business Test Analyst Documents on File Type Date Recorded Patient Recyclable Materials Collector Expl anation Advance Directives/Living Will 03/23/2021 1:43 PM Healthcare POA Latest Code Status on File Code Status Date Activated Date Inactivated Comments Full Code 07/30/2014 2:57 PM 08/02/2014 6:20 PM Documents on File Type Date Recorded Patient Recyclable Materials Collector Expl anation Advance Directives/Living Will 03/23/2021 1:43 PM Latest Code Status on File Code Status Date Activated Date Inactivated Comments Full Code 07/30/2014 2:57 PM 08/02/2014 6:20 PM Documents on File Type Date Recorded Patient Recyclable Materials Collector Expl anation Advance Directives/Living Will 03/23/2021 1:43 PM Documents on File Type Date Recorded Patient Recyclable Materials Collector Expl anation Advance Directives/Living Will 03/23/2021 1:43 PM Healthcare POA Documents on File Type Date Recorded Patient Recyclable Materials Collector Expl anation Power of Business Test Analyst Latest Code Status on File Code Status Date Activated Date Inactivated Comments Full Code 07/30/2014 2:57 PM 08/02/2014 6:20 PM Latest Code Status on File Code Status Date Activated Date Inactivated Comments Full Code 07/30/2014 2:57 PM 08/02/2014 6:20 PM Latest Code Status on File Code Status Date Activated Date Inactivated Comments Full Code 06/02/2022 7:55 PM 06/03/2022 4:38 PM Additional Source Comments Reason for Visit (unrecogniz ed section and content) Reason Comments New Patient Renal Stones Status Reason Specialty Diagnoses / Procedures Referred By Contact Referred To Contact New Request Diagnoses History of renal stone Inder Banda MD [address] [place] [address] Marilynn Bazan MD [address] [place] [address] Reason Comments Suture Removal Reason Comments Colonoscopy Status Reason Specialty Diagnoses / Procedures Referre d By Contact Referred To Contact Diagnoses Personal history of colonic polyps Personal history of colonic polyps [Z86.010] Procedures ID COLONOSCOPY FLX DX W/COLLJ SPEC WHEN PFRMD Damir Johnson MD [address] [facility] [address] [place] [address] Reason Comments Med Refill Reason Onset Date Comments Appointment 11/19/2021 Reason Comments Chronic Kidney Disease Labs 10/28 bun-19, cr-0.96 Specialty Diagnoses / Procedures Referred By Contac t Referred To Contact Diagnoses Kidney stone Procedures CT ABDOMEN/PELVIS WITHOUT CONTRAST CHG CT SCAN,ABDOMENT AND PELVIS,W/O CONTRAST Aman Rivera, [employer]RAFT[employer] SALES REPRESENTATIVE [address] [place] [address] Referral ID Status Reason Start Date Expiration Date Visits Re quested Visits Authorized [id number] Closed 04/10/2021 05/04/2022 1 1 Reason Comments Follow-up Reason Comments Follow-up evaluated dyslipidem ia, vitamin D levels Reason Onset Date Comments Clobazam Refill 12/15/2021 Reason Onset Date Comments Clobazam Dosage 12/24/2021 Reason Comments Seizures Reason Comments Follow-up Kidney Stone Reason Comments Follow-up 3mth evaluate dyslip idemia, vitamin d deficiency, IFG (impaired fasting glucose) Reason Comments Fall TO ED after falling during seizure. Pt hit head on table. History of seizures. Fall occurred around 1000. Specialty Diagnoses / Procedures Referred By Contac t Referred To Contact Ultrasound Diagnoses Abnormal LFTs Procedures US ABDOMEN RUQ/LIVER/GB Inder Banda MD [address] [place] [phone] [facility] [address] [place] [phone] Referral ID Status Reason Start Date Expiration Date Visits Re quested Visits Authorized [id number] Closed 03/09/2022 04/03/2023 1 1 Reason Onset Date Comments REFILL REQUEST ONFI 03/16/2022 Reason Comments Chronic Kidney Disease Labs-03/01-BUN-17, cr-1.12 Lab Review Print off lab orders for next appt . 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 Patient has epilepsy, had a seizure while walking and fell backwards. No LOC Reason Comments Staple Removal Here to have desirae removed from top of head placed last week Reason Comments Finger Injury Reason Comments Chronic Kidney Disease [facility] 11/15 bun-21, cr-1.03 Hypokalemia K-3.2 Medication Refill Pt needs refills on hydrochlorothiazide and potassium citrate. Reason Comments Pain New Patient Specialty Diagnoses / Procedures Referred By Boone berumen Referred To Contact Diagnoses Right hand pain Inder Badna MD [address] [place] [phone] Riley Dietz MD [address] [place] [phone] Referral ID Status Reason Start Date Expiration Date Visits Requested Visits Authorized [id number] Pending Review Patient Relations 11/23/2022 12/18/2023 1 1 Reason Comments Follow-up 3mth evaluate vitami n d deficiency, IFG (impaired fasting glucose) Reason Comments Pain Follow-up Reason Comments Follow-up evaluation of blood pressure, Impaired fasting blood glucose, dyslipidemia as well as vitamin D level. Reason Comments Pain Inj effective, stopp ed therapy d/t pain. Wanting another injection to restart therapy. Follow-up Inj effective, stopp ed therapy d/t pain. Wanting another injection to restart therapy. Reason Comments Chronic Kidney Disease Lab 05.16.23 bun 1 6 cr 1.02 Specialty Diagnoses / Procedures Referred By Boone berumen Referred To Contact Diagnoses Adhesive capsulitis of right shoulder Right shoulder pain, unspecified chronicity Procedures CT SHOULDER RIGHT WITH CONTRAST ID CT SCAN OF ARM CONTRAST Riley Dietz MD [address] [place] [id number] Referral ID Status Reason Start Date Expiration Date Visits Re quested Visits Authorized [id number] Closed 05/20/2023 06/13/2024 1 1 Specialty Diagnoses / Procedures Referred By Contac t Referred To Contact Diagnoses Impingement of right shoulder Procedures XR FLUORO ARTHROGRAM SHOULDER RIGHT Riley Dietz MD [address] [place] [address] Referral ID Status Reason Start Date Expiration Date Visits Re quested Visits Authorized [id number] Closed 05/18/2023 06/11/2024 1 1 Reason Comments Follow-up Reason Comments colonoscopy consult Reason Comments Follow-up Rt shoulder Reason Comments Follow-up evaluation of vitami n B12 level, complete hemogram as well as sedimentation rate. (unrecognized sect ion and content) No Status Records FoundNo Status Records FoundNo Status Records FoundNo Status Records FoundNo Status Records FoundNo Status Records FoundNo Status Records Found INFORMATION SOURCE (unrecogn ized section and content) DATE CREATED AUTHOR AUTHOR'S ORGANIZ ATION 05/31/2020 [facility] DATE CREATED AUTHOR AUTHOR'S ORGANIZ ATION 03/26/2022 [facility] DATE CREATED AUTHOR AUTHOR'S ORGANIZ ATION 07/08/2023 [facility] DATE CREATED AUTHOR AUTHOR'S ORGANIZ ATION 07/21/2023 [facility] DATE CREATED AUTHOR AUTHOR'S ORGANIZ ATION 08/09/2023 [facility] DATE CREATED AUTHOR AUTHOR'S ORGANIZ ATION 08/13/2023 [facility] Damir Johnson MD - 06/03/2020 12:49 PM EDTMartDamir raza MD - 05/08/2020 2:53 PM EDT H&P Notes (unrecognized sect ion and content) INTERVAL HISTORY AND PHYSICAL Patient Name: Danette Moore Admit Date: MR #: [id number] : 1965 The H&P has been reviewed and the patient has been examined. I concur with the findings of the H&P. There are no significant changes. It is appropriate to proceed with the planned procedure. Damir Johnson MD 06/03/2020 12:49 PM [facility] [address] [facility] [address] [facility] [id number] Danette Moore is a 54 y.o. male being seen on 05/08/20 for Chief Complaint Patient presents with Colonoscopy HPI: PROCEDURALIST ATTESTATION OF OUTPATIENT ELECTIVE CASE DURING COVID PANDEMIC The proposed procedure is outpatient with an expected discharge on the same day as the surgery / procedure. I discussed with the patient that while we practice appropriate precautions consistent with prevailing medical standards, any contact with any person in any setting at this time presents a risk of transmission and contraction of COVID-19. The patient was also informed that COVID-19 testing within 72 hours of the procedure will be required. The patient wishes to proceed. Patient presents today to schedule a surveillance colonoscopy. He had a colonoscopy in 2014 that showed a tubular adenoma with high-grade dysplasia. There was also a tubulovillous adenoma and another tubular adenoma. He had a repeat colonoscopy in August 2015 which revealed only a hyperplastic polyp. His next colonoscopy was in September 2016. That colonoscopy revealed multiple tubular adenomas and one hyperplastic polyp. He denies any current abdominal pain, nausea, vomiting, diarrhea, or constipation. He denies black or bloody bowel movements. His weight has been relatively stable. He denies a family history of colon cancer. Past Medical History: Diagnosis Date Adenomatous polyp of colon Epilepsy (HCC) Tubulovillous adenoma of colon Past Surgical History: Procedure Laterality Date COLONOSCOPY W/ POLYPECTOMY 10/14/2016 multiple tubular adenoma polyps, one hyperplastic polyp....Alex COLONOSCOPY W/ POLYPECTOMY 08/27/2015 hyperplastic polyp....Alex COLONOSCOPY W/ POLYPECTOMY 04/15/2015 tubular adenoma with high grade dysplasia, tubular adenoma and tubulovillous adenoma polyps....Alex EYE SURGERY 1987 ORTHOPEDIC SURGERY Right fracture arm, repair sigmoid polypectomy with high-grade dysplasia VAGUS NERVE STIMULATOR INSERTION 2017 No Known Allergies Current Outpatient Medications Medication Sig Dispense Refill calcium acetate (PHOSLO) 667 mg capsule Take 1,334 mg by mouth daily. cholecalciferol, vitamin D3, 50 mcg (2,000 unit) Tab Take 2,000 Units by mouth Tuesday, Tuesday, Tuesday . cloBAZam (ONFI) 20 mg tablet Take 40 mg by mouth daily Reasons2 tablets in am, 2 tablets at HS. fish oil-omega-3 fatty acids 300-1,000 mg capsule Take 2 g by mouth daily. lamoTRIgine (LAMICTAL) 100 MG tablet Take 250 mg by mouth 2 (two) times a day . lamoTRIgine (LAMICTAL) 100 MG tablet Take 100 mg by mouth 2 (two) times a day . lamoTRIgine (LAMICTAL) 25 MG tablet Take 50 mg by mouth 2 (two) times a day . topiramate (TOPAMAX) 50 MG tablet Take 200 mg by mouth 2 (two) times a day . No current facility-administered medications for this visit. Social History Tobacco Use Smoking status: Current Every Day Smoker Types: Cigarettes Smokeless tobacco: Former User Tobacco comment: 4-5 cigarettes daily Substance Use Topics Alcohol use: No Drug use: No Family History Problem Relation Age of Onset Testicular cancer Father Heart disease Father REVIEW OF SYSTEMS Pertinent positives are listed in HPI, PMSH, SH, ALL, otherwise all systems reviewed below are negative. The following systems were reviewed: [x] Const (fevers, chills, wt. loss, fatigue) [x] CV (HTN, CP, AVILES, edema, DVT) [x] Resp (SOB, pleurisy, asthma, apnea) [x] GI (N, V, D, C, M, abd pain, appetite) [x] Musc (back pain, joint stiffness, gout) [x] Neuro (seizures, syncope, paralysis) [x] Psych (depression, anxiety) [x] Endo (hot/cold intol, polyuria[DM]) [x] Hem/Lymph (Anemia, LA, bleeding) [x] Allerg/Immun (seasonal, immuniz) [x] Eyes (diplopia, cataracts) [x] ENT/mouth (dysphagia, epistaxis) [x] (dysuria, hematuria) [x] Skin/Breast (moles, rash, lumps, nipple changes) Pertinent Positives: See HPI Pertinent Negatives: See HPI Physical Exam: BP 117/76 Pulse 88 Ht 5' 7 Wt 85.5 kg (188 lb 9.6 oz) SpO2 95% BMI 29.54 kg/m Body mass index is 29.54 kg/m . Constitutional: Well nourished, well developed person in no acute distress. Ambulates without difficulty. Head: Atraumatic and normocephalic. Face: Within normal limits. Eyes: Pupils equal, round, reactive to light. Sclera white. Mouth: Moist mucous membranes, normal dentation. Neck: supple, trachea midline,no masses, no incisions. Lymphatic: No cervical or inguinal lymphadenopathy. Heart: Regular rate and rhythm. Lungs: Clear to auscultation. Abdomen: Soft, non-distended, non-tender, no heptasplenomegaly, no umbilica, incisional, femoral, or inguinal hernias. Pelvis: Stable, non-tender. Skin: Warm, moist, normal skin turgor. Peripheral Vascular: Palapable carotid, radial, and femoral pulses, no peripheral edema. Neuropsych: Alert and oriented, judgement and insight intact. Normal Gait. Assessment: 1. Personal history of colonic polyps No orders of the defined types were placed in this encounter. Plan: Colonoscopy Damir Johnson MD documented in this encounter Gloria Harkins RN - 06/03/2020 1:43 PM Claudia Munoz RN - 06/03/2020 12:59 PM EDGrabiel Cifuentes RN - 06/03/2020 11:51 AM EDT Nursing Notes (unrecognized section and content) Verbal/written instructions given to patient and family/escort understanding verbalized VS monitoring and sedation done by Anesthesia/FACING MACHINE OPERATOR/ CAA. Pt is escorted by oscar Dania. Pt states that doctor can speak to family after the procedure. 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 60 each 11 02/16/2022 02/16/2023 Care Teams (unrecognized sec tion and content) Founder And Chief Executive Officer Relationship Specialty Start Date End Date Inder Banda MD [address] [place] [id number] PCP - General Internal Medicine 05/14/21 Founder And Chief Executive Officer Relationship Specialty Start Date End Date Inder Banda MD PCP - General Internal Medicine 01/30/18 Founder And Chief Executive Officer Relationship Specialty Start Date End Date Inder Banda MD PCP - General Internal Medicine 01/30/18 Founder And Chief Executive Officer Relationship Specialty Start Date End Date Inder Banda MD PCP - General Internal Medicine 01/30/18 Founder And Chief Executive Officer Relationship Specialty Start Date End Date Inder Banda MD PCP - General Internal Medicine 01/30/18 Founder And Chief Executive Officer Relationship Specialty Start Date End Date Inder Banda MD PCP - General Internal Medicine 01/30/18 Founder And Chief Executive Officer Relationship Specialty Start Date End Date Inder Banda MD [address] [place] [id number] PCP - General Internal Medicine 05/14/21 Founder And Chief Executive Officer Relationship Specialty Start Date End Date Inder Banda MD [address] [place] [phone] PCP - General Internal Medicine 05/14/21 Founder And Chief Executive Officer Relationship Specialty Start Date End Date Inder Banda MD [address] [place] [id number] PCP - General Internal Medicine 05/14/21 Founder And Chief Executive Officer Relationship Specialty Start Date End Date Inder Banda MD PCP - General Internal Medicine 01/30/18 Founder And Chief Executive Officer Relationship Specialty Start Date End Date Inder Banda MD [address] [place] [id number] PCP - General Internal Medicine 05/14/21 Founder And Chief Executive Officer Relationship Specialty Start Date End Date Inder Banda MD PCP - General Internal Medicine 01/30/18 Founder And Chief Executive Officer Relationship Specialty Start Date End Date Inder Banda MD PCP - General Internal Medicine 01/30/18 Founder And Chief Executive Officer Relationship Specialty Start Date End Date Inder Banda MD PCP - General Internal Medicine 01/30/18 Founder And Chief Executive Officer Relationship Specialty Start Date End Date Inder Banda MD [address] [place] [id number] PCP - General Internal Medicine 05/14/21 Founder And Chief Executive Officer Relationship Specialty Start Date End Date Inder Banda MD PCP - General Internal Medicine 01/30/18 Founder And Chief Executive Officer Relationship Specialty Start Date End Date Inder Banda MD PCP - General Internal Medicine 01/30/18 Founder And Chief Executive Officer Relationship Specialty Start Date End Date Inder Banda MD PCP - General Internal Medicine 01/30/18 Founder And Chief Executive Officer Relationship Specialty Start Date End Date Inder Banda MD PCP - General Internal Medicine 01/30/18 Founder And Chief Executive Officer Relationship Specialty Start Date End Date Inder Banda MD PCP - General Internal Medicine 01/30/18 Founder And Chief Executive Officer Relationship Specialty Start Date End Date Inder Badna MD PCP - General Internal Medicine 01/30/18 Founder And Chief Executive Officer Relationship Specialty Start Date End Date Inder Banda MD PCP - General Internal Medicine 01/30/18 Founder And Chief Executive Officer Relationship Specialty Start Date End Date Inder Banda MD PCP - General Internal Medicine 01/30/18 Founder And Chief Executive Officer Relationship Specialty Start Date End Date Inder Banda MD PCP - General Internal Medicine 01/30/18 Founder And Chief Executive Officer Relationship Specialty Start Date End Date Inder Bnada MD PCP - General Internal Medicine 01/30/18 Founder And Chief Executive Officer Relationship Specialty Start Date End Date Inder Banda MD PCP - General Internal Medicine 01/30/18 Founder And Chief Executive Officer Relationship Specialty Start Date End Date Inder Banda MD PCP - General Internal Medicine 01/30/18 Founder And Chief Executive Officer Relationship Specialty Start Date End Date Inder Banda MD PCP - General Internal Medicine 01/30/18 Founder And Chief Executive Officer Relationship Specialty Start Date End Date Inder Banda MD PCP - General Internal Medicine 01/30/18 Founder And Chief Executive Officer Relationship Specialty Start Date End Date Inder Banda MD PCP - General Internal Medicine 01/30/18 Founder And Chief Executive Officer Relationship Specialty Start Date End Date Inder Banda MD PCP - General Internal Medicine 01/30/18 Founder And Chief Executive Officer Relationship Specialty Start Date End Date Inder Banda MD [address] [place] [address] PCP - General Internal Medicine 04/21/20 Founder And Chief Executive Officer Relationship Specialty Start Date End Date Inder Banda MD PCP - General Internal Medicine 01/30/18 Scheduled Active and Recently Administ ered Medications (unrecognized section and content) Continuous Medication Order 04/07/2021 04/08/2021 04/09/2021 sodium chloride 0.9% IV solution Intravenous, at 100 mL/hr, CONTINUOUS, Starting on Fadia 04/09/21 at 1300, Until Fadia 04/09/21 at 1821, Pre-op/Pre-Proc 1254 ($$New Bag$$ - Provider: Amor Cook RN)[id number] (Stopped - Provider: Samantha Galindo APRN-FACING MACHINE OPERATOR)[id number] (Stopped - Provider: Johana Cai, RN) PRN Medication Order 04/07/2021 04/08/2021 04/09/2021 iohexol (OMNIPAQUE) 300 MG/ML vial NEEDED, Starting on Fadia 04/09/21 at 1343, Until Fadia 04/09/21 at 1821, Intra-op/Intra-Proc 1343 (Given - Provid er: Joseph Singh MD) sodium chloride 0.9 % irrigation NEEDED, Starting on Fadia 04/09/21 at 1343, Until Fadia 04/09/21 at 1821, Intra-op/Intra-Proc 1343 (Given - Provid er: Joseph Singh MD) Scheduled Medication Order 10/13/2022 10/14/2022 10/15/2022 feqejriz-qcodxfqyvi-wetjbphkm (NEOSPORIN) 400-5-5000 ointment 1 Application (COMPLETED) 1 Application, Topical, ONCE, 1 dose, On Tue10/15/22 at 2253 1755 (Given - Provid er: Denisa López RN) FOR RECORDS PERTAINING TO PATIENTS WHO ARE OR HAVE BEEN ENROLLED IN A CHEMICAL DEPENDENCY/SUBSTANCEABUSE PROGRAM, SOME INFORMATION MAY BE OMITTED. This clinical summary was aggregated from multiple sources. Caution should be exercised in using it in the provision of clinical care. This summary normalizes information from multiple sources, and as a consequence, information in this document may materially change the coding, format and clinical context of patient data. In addition, data may be omitted in some cases. CLINICAL DECISIONS SHOULD BE BASED ON THE PRIMARY CLINICAL RECORDS. [employer] provides no warranty or guarantee of the accuracy or completeness of information in this document.
[2023-08-18 15:30] LABS: Hematocrit 40.8 % (40-54); Mean Corp Hgb Conc 31.9 g/dL (32-36); Mean Corpuscular Hgb 32.1 pg (27.0-32.0); Mean Corpuscular Volume 100.7 fL (80-94); Mean Platelet Vol. 9.7 fl (6.2-12.0); Platelet Count 415 K/mm3 (150-450); RBC Distribution Width CV 14.5 % (11.6-14.6); RBC Distribution Width SD 54.9 fl (35.1-43.9); Red Blood Count 4.05 M/mm3 (4.6-6.2); White Blood Count 9.5 K/mm3 (4.4-11.0)
[2023-08-18 15:55] LABS: ALB/GLOB Ratio 0.8 RATIO (0.9-2.4); AST(SGOT) 16 U/L (15-37); Alanine Aminotransfer ALT/SGPT 28 U/L (16-61); Albumin, Serum 3.4 g/dL (3.2-5.0); Alkaline Phosphatase 131 U/L (45-117); Anion Gap 5 (5-15); BUN 17 mg/dL (7-18); BUN/Creat Ratio 17.3 RATIO (10-20); Calcium,Total 8.8 mg/dL (8.5-10.1); Chloride 118 mmol/L (98-107); Creatinine, Serum 0.98 mg/dL (0.70-1.30); EST Glomerular Filtration Rate 83 mL/min (>60); Est Glom Filt Rate - Afr Amer 100 mL/min (>60); Glucose 100 mg/dL (74-106); Protein, Total 7.4 g/dL (6.4-8.2); Sodium Level 144 mmol/L (136-145)
[2023-08-23 19:06] LABS: Lamotrigine (Lamictal) Level 7.9 ug/mL (2.0-20.0)
== END | disposition home or self-care (01) ==
PROVIDERS: Referring Provider Psychiatry & Neurology Neurology; Visit Provider Psychiatry & Neurology Neurology
DX: G40.812 Lennox-Gastaut syndrome, not intractable, without status epilepticus (principal)
CPT/HCPCS: 36415; 80053; 82140; 82542; 85027

== ENCOUNTER → 2025-01-22 | Outpatient (CLI) | payer MEDICARE, SELFPAY | END | disposition home or self-care (01) | LOC: MTLAB 14:10 | PROVIDERS: PCP Internal Medicine; Referring Provider Psychiatry & Neurology Neurology; Visit Provider Psychiatry & Neurology Neurology | DX: G40.909 Epilepsy, unspecified, not intractable, without status epilepticus (principal) | CPT/HCPCS: 36415; 80201; 82542 ==